=== PATIENT | female | born 1940 | race Caucasian/White ===

== ENCOUNTER 2019-06-28 07:10 | Outpatient (CLI) | payer OTHER, SELFPAY ==
[2019-06-28 07:58] LABS: Basophils Absolute Auto 0.1 K/mm3 (0.0-0.1); Basophils Percent Auto 0.8 % (0.2-1.2); Eosinophils Absolute Auto 0.1 K/mm3 (0-0.3); Eosinophils Percent Auto 1.5 % (0-4.4); Hematocrit 48.3 % (37.0-47.0); Hemoglobin 15.9 g/dL (12.0-15.0); Immature Granulocyte Absolute 0.03 K/mm3 (0.00-0.031); Immature Granulocyte Percent A 0.3 % (0-0.5); Lymphocytes Absolute Auto 1.82 K/mm3 (0.9-3.2); Lymphocytes Percent Auto 20.1 % (18.3-44.2); Mean Corpuscular HGB Conc 32.9 g/dl (32-36); Mean Corpuscular Hemoglobin 29.1 pg (26-34); Mean Corpuscular Volume 88.5 fl (80-100); Mean Platelet Volume 12.2 fl (7.4-10.4); Monocytes Absolute Auto 1.1 K/mm3 (0.1-0.6); Monocytes Percent Auto 12.3 % (2.6-8.5); Neutrophils Absolute Auto 5.9 K/mm3 (1.3-6.7); Platelet Count Result 325 k/mm3 (150-375); Red Blood Count 5.46 M/mm3 (4.2-5.4); Red Cell Distribution Width 13.8 % (11.5-14.5)
[2019-06-28 08:13] LABS: Alanine Aminotransferase 22 U/L (4-35); Albumin Level 4.1 g/dL (3.5-5.1); Alkaline Phosphatase 72 U/L (38-126); Aspartate Amino Transferase 24 U/L (14-36); Bilirubin,Total 0.5 mg/dL (0.2-1.3); Blood Urea Nitrogen 17 mg/dL (7-17); Calcium 9.5 mg/dL (8.4-10.2); Carbon Dioxide 33 mmol/L (22-30); Chloride 97 mmol/L (98-107); Cholesterol 247 mg/dL (0-200); Estimated Glomerular Filt Rate > 60; Glucose 112 mg/dL (65-105); HDL Direct 53 mg/dL; Potassium 3.6 mmol/L (3.4-5.0); Sodium 137 mmol/L (137-145); Triglycerides 149 mg/dL (<150)
[2019-06-28 08:20] LABS: Hemoglobin A1C 6.2 % (<5.7)
[2019-06-28 08:24] LABS: LDL Cholesterol Direct 160 mg/dL
== END 2019-06-28 07:11 | disposition home or self-care (01) ==
PROVIDERS: PCP Family Medicine
DX: R73.01 Impaired fasting glucose (principal); E55.9 Vitamin D deficiency, unspecified
CPT/HCPCS: 36415; 80053; 80061; 82306; 83036; 85025

== ENCOUNTER 2020-01-31 07:37 | Outpatient (CLI) | payer OTHER, SELFPAY ==
[2020-01-31 07:55] LABS: Basophils Absolute Auto 0.1 K/mm3 (0.0-0.1); Basophils Percent Auto 0.8 % (0.2-1.2); Eosinophils Absolute Auto 0.1 K/mm3 (0-0.3); Hematocrit 47.6 % (37.0-47.0); Hemoglobin 16.1 g/dL (12.0-15.0); Immature Granulocyte Absolute 0.01 K/mm3 (0.00-0.031); Immature Granulocyte Percent A 0.1 % (0-0.5); Lymphocytes Absolute Auto 1.63 K/mm3 (0.9-3.2); Lymphocytes Percent Auto 21.4 % (18.3-44.2); Mean Corpuscular HGB Conc 33.8 g/dl (32-36); Mean Corpuscular Hemoglobin 29.8 pg (26-34); Mean Corpuscular Volume 88.1 fl (80-100); Mean Platelet Volume 11.7 fl (7.4-10.4); Monocytes Absolute Auto 0.9 K/mm3 (0.1-0.6); Monocytes Percent Auto 12.1 % (2.6-8.5); Neutrophils Absolute Auto 4.9 K/mm3 (1.3-6.7); Neutrophils Percent Auto 64.6 % (45.5-73.1); Platelet Count Result 315 k/mm3 (150-375); Red Cell Distribution Width 14.6 % (11.5-14.5); White Blood Count 7.6 K/mm3 (4.5-10.0)
[2020-01-31 08:07] LABS: Hemoglobin A1C 5.9 % (<5.7)
[2020-01-31 08:16] LABS: Alanine Aminotransferase 26 U/L (4-35); Alkaline Phosphatase 57 U/L (38-126); Anion Gap 6 mmol/L (8-16); Aspartate Amino Transferase 29 U/L (14-36); Bilirubin,Total 0.6 mg/dL (0.2-1.3); Blood Urea Nitrogen 11 mg/dL (7-17); Calcium 9.3 mg/dL (8.4-10.2); Carbon Dioxide 35 mmol/L (22-30); Chloride 92 mmol/L (98-107); Estimated Glomerular Filt Rate > 60; Glucose 105 mg/dL (65-105); Potassium 3.9 mmol/L (3.4-5.0); Sodium 133 mmol/L (137-145)
== END 2020-01-31 07:38 | disposition home or self-care (01) ==
PROVIDERS: PCP Family Medicine; Visit Provider Physician Assistant
DX: J44.9 Chronic obstructive pulmonary disease, unspecified (principal); R73.03 Prediabetes; I10 Essential (primary) hypertension
CPT/HCPCS: 36415; 80053; 83036; 85025

== ENCOUNTER 2020-10-16 07:08 | Outpatient (CLI) | payer OTHER, SELFPAY ==
[2020-10-16 07:49] LABS: Basophils Percent Auto 0.5 % (0.2-1.2); Eosinophils Absolute Auto 0.2 K/mm3 (0-0.3); Eosinophils Percent Auto 2.3 % (0-4.4); Hematocrit 46.9 % (37.0-47.0); Hemoglobin 15.1 g/dL (12.0-15.0); Immature Granulocyte Absolute 0.02 K/mm3 (0.00-0.031); Immature Granulocyte Percent A 0.2 % (0-0.5); Lymphocytes Absolute Auto 1.67 K/mm3 (0.9-3.2); Lymphocytes Percent Auto 20.1 % (18.3-44.2); Mean Corpuscular HGB Conc 32.2 g/dl (32-36); Mean Corpuscular Hemoglobin 29.2 pg (26-34); Mean Corpuscular Volume 90.5 fl (80-100); Mean Platelet Volume 12.4 fl (7.4-10.4); Monocytes Absolute Auto 1.1 K/mm3 (0.1-0.6); Monocytes Percent Auto 13.3 % (2.6-8.5); Neutrophils Absolute Auto 5.3 K/mm3 (1.3-6.7); Neutrophils Percent Auto 63.6 % (45.5-73.1); Platelet Count Result 255 k/mm3 (150-375); Red Blood Count 5.18 M/mm3 (4.2-5.4); Red Cell Distribution Width 14.4 % (11.5-14.5); White Blood Count 8.3 K/mm3 (4.5-10.0)
[2020-10-16 07:55] LABS: Alanine Aminotransferase 18 U/L (4-35); Albumin Level 4.1 g/dL (3.5-5.1); Alkaline Phosphatase 57 U/L (38-126); Anion Gap 8 mmol/L (8-16); Aspartate Amino Transferase 24 U/L (14-36); Bilirubin,Total 0.3 mg/dL (0.2-1.3); Blood Urea Nitrogen 20 mg/dL (7-17); Calcium 9.3 mg/dL (8.4-10.2); Carbon Dioxide 29 mmol/L (22-30); Chloride 101 mmol/L (98-107); Cholesterol 232 mg/dL (0-200); Estimated Glomerular Filt Rate 60; Glucose 97 mg/dL (65-105); HDL Direct 60 mg/dL; Potassium 4.3 mmol/L (3.4-5.0); Sodium 138 mmol/L (137-145); Triglycerides 123 mg/dL (<150)
[2020-10-16 08:06] LABS: LDL Cholesterol Direct 121 mg/dL
[2020-10-16 10:50] LABS: Hemoglobin A1C 6.1 % (<5.7)
[2020-10-21 04:40] LABS: Vitamin D 1,25 (OH)2 Total 21 pg/mL (18-72); Vitamin D2 1,25 (OH)2 <8 pg/mL; Vitamin D3 1,25 (OH)2 21 pg/mL
== END 2020-10-16 07:09 | disposition home or self-care (01) ==
PROVIDERS: PCP Family Medicine; Visit Provider Physician Assistant
DX: E78.2 Mixed hyperlipidemia (principal); E55.9 Vitamin D deficiency, unspecified; J44.9 Chronic obstructive pulmonary disease, unspecified; R73.03 Prediabetes; G62.9 Polyneuropathy, unspecified; F33.1 Major depressive disorder, recurrent, moderate; I10 Essential (primary) hypertension
CPT/HCPCS: 36415; 80053; 80061; 82652; 83036; 85025

== ENCOUNTER 2021-10-01 06:59 | Outpatient (CLI) | payer OTHER, SELFPAY ==
[2021-10-01 07:57] LABS: Basophils Percent Auto 0.4 % (0.2-1.2); Eosinophils Absolute Auto 0.2 K/mm3 (0-0.3); Eosinophils Percent Auto 1.7 % (0-4.4); Hematocrit 47.1 % (37.0-47.0); Hemoglobin 15.6 g/dL (12.0-15.0); Immature Granulocyte Absolute 0.07 K/mm3 (0.00-0.031); Immature Granulocyte Percent A 0.8 % (0-0.5); Lymphocytes Absolute Auto 1.71 K/mm3 (0.9-3.2); Lymphocytes Percent Auto 19.1 % (18.3-44.2); Mean Corpuscular HGB Conc 33.1 g/dl (32-36); Mean Corpuscular Hemoglobin 29.9 pg (26-34); Mean Corpuscular Volume 90.4 fl (80-100); Mean Platelet Volume 12.2 fl (7.4-10.4); Monocytes Percent Auto 11.1 % (2.6-8.5); Neutrophils Percent Auto 66.9 % (45.5-73.1); Platelet Count Result 225 k/mm3 (150-375); Red Blood Count 5.21 M/mm3 (4.2-5.4); Red Cell Distribution Width 14.2 % (11.5-14.5)
[2021-10-01 08:12] LABS: Alanine Aminotransferase 24 U/L (6-35); Alkaline Phosphatase 59 U/L (38-126); Anion Gap 3 mmol/L (8-16); Aspartate Amino Transferase 28 U/L (14-36); Bilirubin,Total 0.5 mg/dL (0.2-1.3); Blood Urea Nitrogen 18 mg/dL (7-17); CRP 0.9 mg/dL (<1.0); Calcium 8.6 mg/dL (8.4-10.2); Carbon Dioxide 31 mmol/L (22-30); Chloride 103 mmol/L (98-107); Cholesterol 249 mg/dL (0-200); Estimated Glomerular Filt Rate > 60; Glucose 101 mg/dL (65-110); HDL Direct 49 mg/dL; Potassium 4.1 mmol/L (3.4-5.0); Sodium 137 mmol/L (137-145); Triglycerides 128 mg/dL (<150)
[2021-10-01 08:26] LABS: LDL Cholesterol Direct 145 mg/dL
[2021-10-04 12:00] LABS: Lipoprotein A <10 nmol/L (<75)
== END 2021-10-01 07:00 | disposition home or self-care (01) ==
PROVIDERS: PCP Family Medicine; Visit Provider Family Medicine
DX: E78.2 Mixed hyperlipidemia (principal); I70.211 Atherosclerosis of native arteries of extremities with intermittent claudication, right leg; I10 Essential (primary) hypertension; G60.9 Hereditary and idiopathic neuropathy, unspecified; I82.90 Acute embolism and thrombosis of unspecified vein; F17.200 Nicotine dependence, unspecified, uncomplicated; R60.0 Localized edema
CPT/HCPCS: 36415; 80053; 80061; 83695; 85025; 86140

== ENCOUNTER 2022-03-21 05:09 | Emergency (ER) | payer OTHER, SELFPAY ==
[2022-03-21 05:08] VITALS: BP 157/96; PULSE 79; RESP 18; TEMP 36.6; O2SAT 94
--- NOTE | 2022-03-21 05:19 | ED.GENADULT ---
HPI - General Adult General Chief complaint: Allergic Reaction <DO Osiel Mckay Last Filed: 03/21/22 06:30> Stated complaint: ALLERGIC REACTION <DO Osiel Mckay Last Filed: 03/21/22 06:30> Time Seen by Provider: 03/21/22 09:37 <DO Osiel Mckay Last Filed: 03/21/22 06:30> Source: RN notes reviewed <Antwan Holley DO - Last Filed: 03/21/22 06:30> History of Present Illness HPI narrative: Patient presents emergency department from home via EMS for tongue swelling. Patient states she awoke from sleep at approximately 3 AM swelling over the left side of her tongue. She states that swelling has progressively become somewhat larger and she called EMS at that time. When EMS arrived they noted the patient has swelling of her lips or tongue the patient was given Solu-Medrol 125 mg x 1 at that time. Patient states she was recently diagnosed with bronchitis and started on Levaquin as well as codeine with guaifenesin. She states it is difficult to swallow but she denies any shortness of breath at this time patient also notes that she is on lisinopril <DO Osiel Mckay Last Filed: 03/21/22 06:30> Related Data Allergies/adverse reactions: Allergies Allergy/AdvReac Type Severity Reaction Status Date / Time ranitidine Allergy Intermediate RASH/ITCHIN Verified 03/20/22 07:29 G Penicillins Allergy Mild hives Verified 03/20/22 07:29 simvastatin Allergy Unknown myopathy Verified 03/20/22 07:29 guaifenesin Allergy Swelling Verified 03/21/22 05:14 levofloxacin Allergy Swelling Verified 03/21/22 05:15 <DO Osiel Mckay Last Filed: 03/21/22 06:30> Review of Systems Review of Systems: Gen.: Denies fevers or chills ENT: See HPI Respiratory: Denies shortness of breath or cough CV: Denies chest pain or palpitations GI: Denies abdominal pain nausea, emesis Musculoskeletal: Denies back pain or muscle pain Neuro: Denies numbness, tingling, weakness or focal weakness Skin: Denies rash Except as documented, all other systems reviewed and negative <Antwan Holley DO - Last Filed: 03/21/22 06:30> [facility] Past Medical History Medical History: Medical History Atherosclerosis of aorta COPD (chronic obstructive pulmonary disease) Essential (primary) hypertension Gastro-esophageal reflux disease without esophagitis Insomnia, unspecified Major depressive disorder, recurrent, moderate Mixed hyperlipidemia Nicotine dependence, cigarettes, uncomplicated Osteopenia after menopause Peripheral arterial occlusive disease Peripheral vascular disease Primary generalized (osteo)arthritis Seborrheic keratosis, inflamed Stress incontinence in female Unspecified osteoarthritis, unspecified site <Antwan Holley DO - Last Filed: 03/21/22 06:30> Family History Family History: Family History Mother Hypertension Sibling Patient's sister is in good health Father Carcinoma of colon <Antwan Holley DO - Last Filed: 03/21/22 06:30> Social History Social History: Social History Social History: Years smoked: 60 Smoking status: Light tobacco smoker Tobacco type: cigarettes Second hand tobacco smoke exposure: Yes Additional smoking assessment comments: pt states she is a social smoker Alcohol intake: current Alcohol use details: occasionally Substance use: never Substance use type: does not use Gender identity (if verbalized by the patient): Female Sexual Orientation (if Verbalized by the Patient): Straight or Heterosexual <Antwan Holley DO - Last Filed: 03/21/22 06:30> Exam Narrative: APPEARANCE: No acute distress, nontoxic, resting in bed EYES: EOMI HEENT: Normocephalic, atraumatic, OMM the left side of the tongue is swollen there is no swelling over the ri
[2022-03-21] MEDS: diphenhydrAMINE HCl INJ 50 MG/ML VIAL 25 MG IV PUSH (05:34)
[2022-03-21 05:41] VITALS: O2SAT 95
== END 2022-03-21 10:06 | disposition home or self-care (01) ==
PROVIDERS: Emergency Provider Emergency Medicine; PCP Family Medicine
DX: T78.3XXA Angioneurotic edema, initial encounter (principal); I10 Essential (primary) hypertension; J44.9 Chronic obstructive pulmonary disease, unspecified; E78.2 Mixed hyperlipidemia; F17.210 Nicotine dependence, cigarettes, uncomplicated
CPT/HCPCS: 96374; 99284; J1200

== ENCOUNTER 2022-09-17 07:32 | Outpatient (CLI) | payer OTHER, SELFPAY ==
--- NOTE | 2022-09-17 07:47 | ECHO_ITS ---
Patient Info Name: Vee Roe Age: 82 years : 1940 Gender: Female Ht: 64 in Wt: 178 lbs BSA: 1.94 m2 HR: 53 bpm BP: 161 / 84 mmHg Technical Quality: Fair Exam Date: 09/17/2022 7:57 AM Exam Location: [facility] Patient Status: Outpatient Admit Date: 09/17/2022 Staff Ordering Physician: Bernie Brannon MD Driver Retraining Instructor: Abbey Ngo RDCS Attending Provider: Bernie Brannon MD Referring Physician: Clovis MARIN; Exam Type: CA echo doppler color flow Study Info Indications R01.1 - Cardiac murmur, unspecified Complete two-dimensional, color flow and Doppler transthoracic echocardiogram is performed. Summary 1. Complete two-dimensional, color flow and Doppler transthoracic echocardiogram is performed. 2. Left ventricular chamber dimension is normal. 3. Left ventricular systolic function is normal, estimated at 60-65%. 4. There is mild concentric increased left ventricular wall thickness. 5. The left ventricular diastolic function is grade I diastolic dysfunction. 6. E/e' 19 is elevated. 7. Global longitudinal strain is abnormal at -13.0%. 8. Left atrial chamber dimension is mildly enlarged. 9. There is mild aortic valve sclerosis. 10. The mitral valve has moderately calcified annulus. 11. No pulmonary hypertension, estimated pulmonary arterial systolic pressure is 19 mmHg. Left Ventricle E/e' 19 is elevated. Global longitudinal strain is abnormal at -13.0%. Left ventricular chamber dimension is normal. Left ventricular systolic function is normal, estimated at 60-65%. There is mild concentric increased left ventricular wall thickness. The left ventricular diastolic function is grade I diastolic dysfunction. Right Ventricle Right ventricular systolic function is normal and with normal TAPSE 1.9 cm. Right ventricular chamber dimension is normal. Left Atria Left atrial chamber dimension is mildly enlarged. Right Atria Right atrial chamber dimension is normal. Aortic Valve The aortic valve is trileaflet. There is mild aortic valve sclerosis. There is no aortic valve stenosis. There is no aortic valve regurgitation. Pulmonic Valve There is no pulmonic regurgitation. Mitral Valve The mitral valve has moderately calcified annulus. There is no mitral valve stenosis. There is no mitral valve regurgitation. Tricuspid Valve There is no tricuspid valve regurgitation. No pulmonary hypertension, estimated pulmonary arterial systolic pressure is 19 mmHg. Pericardium/Pleural There is no pericardial effusion. Inferior Vena Cava Normal inferior vena cava with >50% collapse upon inspiration consistent with normal right atrial pressure, 5 mmHg. Aorta The aortic root size at the sinus of Valsalva is normal. Left Ventricular Outflow Tract Name Value Normal LVOT 2D LVOT Diameter 2.0 cm LVOT Doppler LVOT Peak Gradient 6 mmHg LVOT Mean Gradient 3 mmHg LVOT VTI 29 cm LVOT VTI/AV VTI Ratio 0.7 LVOT Stroke Volume 86 ml LVOT CO 4.3 l/min LVOT CI 2.
== END 2022-09-17 07:33 | disposition home or self-care (01) ==
PROVIDERS: PCP Family Medicine; Visit Provider Family Medicine
DX: R01.1 Cardiac murmur, unspecified (principal)
CPT/HCPCS: 93306

== ENCOUNTER → 2022-11-17 10:04 | Outpatient (CLI) | payer OTHER, SELFPAY ==
--- NOTE | ~2022-11-17 | DEXA_ITS ---
Bone Density Report Name: RENATO TRISTAN Age: 82 Sex: Female Ethnicity: White Date of : 1940 Indication: osteopenia; monitoring treatment; parental hip fracture; height loss; prior fracture; postmenopausal Referring Provider: KADY, AQUILES Lynn Study: Bone densitometry was performed. Exam Date: November 17, 2022 Accession number: [id number] Bone Density: Region BMD T-score Z-score Classification AP Spine (L1-L4) 1.167 1.1 3.9 Normal Femoral Neck (Left) 0.677 -1.6 0.9 Osteopenia Total Hip (Left) 0.797 -1.2 1.1 Osteopenia Femoral Neck (Right) 0.599 -2.2 0.2 Osteopenia Total Hip (Right) 0.741 -1.6 0.6 Osteopenia Total Hip Mean 0.769 -1.4 0.9 Osteopenia World Health Organization criteria for BMD impression classify patients as: Normal (T-score at or above -1.0), Osteopenia (T-score between -1.0 and -2.5), or Osteoporosis (T-score at or below -2.5). 10-year Fracture Risk: FRAX not reported because: Treated for osteoporosis Previous Exams: Region Exam Age BMD T-score BMD Change BMD Change Date g/cm2 vs Baseline vs Previous AP Spine(L1-L4) 11/17/2022 82 1.167 1.1 0.088* 0.055* 06/26/2015 75 1.112 0.6 0.033* 0.027* 09/27/2009 69 1.085 0.3 0.006 0.006 06/09/2004 64 1.079 0.3 Total Hip(Left) 11/17/2022 82 0.797 -1.2 -0.085* 0.015 06/26/2015 75 0.781 -1.3 -0.100* -0.038* 09/27/2009 69 0.819 -1.0 -0.062* -0.062* 06/09/2004 64 0.881 -0.5 Total Hip(Right) 11/17/2022 82 0.741 -1.6 -0.045* 0.008 06/26/2015 75 0.733 -1.7 -0.053* -0.021 09/27/2009 69 0.754 -1.5 -0.032* -0.032* 06/09/2004 64 0.786 -1.3 *Denotes significance at 95% confidence level, LSC for AP Spine = 0.022 g/cm2, LSC for Total Hip = 0.027 g/cm2 Clinical Information Provided by Patient: Has had a low trauma fracture Parent has had a hip fracture Smokes Is being treated for osteoporosis Has used the following medications: Fosamax (i.e. alendronate) Patient maximum height was 64 Menopause Age: 51 No regular weight bearing exercise Does not regularly consume dairy products Drinks caffeinated beverages Onset of menses at age 12 Number of children 4 Impression: The patient has low bone mass, based on the Right Femoral Neck T-score. The patient has risk factors, including: paren
== END ==
PROVIDERS: PCP Family Medicine; Visit Provider Nurse Practitioner Gerontology
DX: Z78.0 Asymptomatic menopausal state (principal); M85.852 Other specified disorders of bone density and structure, left thigh; M85.851 Other specified disorders of bone density and structure, right thigh
CPT/HCPCS: 77080

== ENCOUNTER 2023-07-06 08:42 | Outpatient (CLI) | payer OTHER, SELFPAY ==
--- NOTE | ~2023-07-06 | XR_ITS ---
Clinical Indication: Cough PA and lateral views of the chest: Comparison: 10/13/2016 Findings: 2 cm similar nodular opacity right lung base noted. Calcified right basilar granuloma also present. Left lung clear. Cardiomediastinal silhouette is within normal limits. Bones and soft tissu es are unremarkable. Impression: 2 cm nodular opacity right lung base. Focal pneumonia versus pulmonary nodule are considerations. Rec ommend chest CT to further evaluate. Reviewed, dictated and finalized at location M. Impression: 2 cm nodular opacity right lung base. Focal pneumonia versus pulmonary nodule a re considerations. Recommend chest CT to further evaluate.
== END 2023-07-06 08:43 | disposition home or self-care (01) ==
PROVIDERS: PCP Family Medicine; Visit Provider Family Medicine
DX: R91.8 Other nonspecific abnormal finding of lung field (principal); R06.9 Unspecified abnormalities of breathing
CPT/HCPCS: 71046

== ENCOUNTER 2023-07-12 08:35 | Outpatient (CLI) | payer OTHER, SELFPAY ==
--- NOTE | ~2023-07-12 | CT_ITS ---
EXAMINATION:CT diagnostic chest wo con DATE: 07/12/2023 09:02 INDICATION: Solitary pulmonary nodule. TECHNIQUE: Computed tomography (CT) of the chest was performed without intravenous contrast. Automate d exposure control and iterative reconstruction technique were employed. The dose-length product (DLP ) was 140.24 mGy-cm. COMPARISON: Chest 2 views 07/06/2023, left shoulder CT 09/14/2014 FINDINGS: The lungs demonstrate mild atelectasis. There is partial collapse of right middle lobe. A c alcified right lung nodule and calcified right hilar lymph nodes are consistent with old granulomatou s disease. No pleural effusion. There is a 3.7 x 2.1 x 1.9 cm mass in the anterior mediastinum. The h eart size is normal. There are coronary artery calcifications. No pericardial effusion. Calcification s in the spleen are consistent with old granulomatous disease. There are gallstones in the gallbladde r, which is normal in size. There is a 10 mm hemorrhagic cyst in left kidney. There is mild thoracic spondylosis. IMPRESSION: 1. Partial collapse of right lung middle lobe, which correlates with the chest radiograph abnormality . 2. 3.7 cm mass in the anterior mediastinum. A small portion of the mass is visible on the CT from 08/18 suggesting this finding is benign. The differential diagnosis is headed by thymoma and thymic hyperplasia. Reviewed, dictated and finalized at location E. IMPRESSION: 1. Partial collapse of right lung middle lobe, which correlates with the chest radiograph abnormality. 2. 3.7 cm mass in the anterior mediastinum. A small portion of the mass is visi ble on the CT from 09/14/2014 suggesting this finding is benign. The differentia l diagnosis is headed by thymoma and thymic hyperplasia.
== END 2023-07-12 08:36 | disposition home or self-care (01) ==
PROVIDERS: PCP Family Medicine; Visit Provider Family Medicine
DX: R91.1 Solitary pulmonary nodule (principal); J98.19 Other pulmonary collapse; R92.8 Other abnormal and inconclusive findings on diagnostic imaging of breast
CPT/HCPCS: 71250

== ENCOUNTER 2024-02-02 09:25 | Outpatient (CLI) | payer OTHER, SELFPAY ==
--- NOTE | ~2024-02-02 | CT_ITS ---
CT Scan of the Chest without Contrast: Clinical Indication: Atelectasis Technique: Contiguous sections were acquired throughout the chest without intravenous contrast. Dose reduction technique was used on this scan by utilizing automated exposure control and iterative recon struction technique. The dose-length product (DLP) was 379.28 mGy-cm. COMPARISON: 07/12/2023 Findings: 2.7 x 1.6 cm lobulated, circumscribed anterior mediastinal lesion is similar to prior exam, possibly minimally increased. Coronary artery calcifications are present. No other mediastinal mass evident. There is no evidence of pleural or pericardial effusion. Calcified right lower lobe granuloma present. Possible minimal atelectasis versus respiratory motion artifact. There is linear bibasilar scarring. Right middle lobe atelectasis seen on prior exam is lar courtney resolved. Images through the upper abdomen reveal stable low-density left adrenal adenoma. Small hyperdense lef t renal cyst is unchanged. Layering small gallstones are present.. Impression: Stable anterior mediastinal mass, indeterminate, though morphology suggests a benign lesion. Significant interval improvement in right middle lobe atelectasis since prior exam. Reviewed, dictated and finalized at location M. Impression: Stable anterior mediastinal mass, indeterminate, though morphology suggests a b enign lesion. Significant interval improvement in right middle lobe atelectasis since prior e xam.
--- NOTE | ~2024-02-02 | XR_ITS ---
Lumbosacral Spine: AP and lateral views Clinical History: Pain Findings: The normal lordotic curve is maintained. No fracture seen. 7 mm anterolisthesis of L4 over L5 noted. There is advanced facet arthropathy throughout the lumbar spine. There are minimal degenera tive changes.. The sacroiliac joints are normally outlined. Impression: 7 mm anterolisthesis of L4 over L5. Advanced facet arthropathy throughout the lumbar spine. Reviewed, dictated and finalized at location M. Impression: 7 mm anterolisthesis of L4 over L5. Advanced facet arthropathy throughout the lumbar spine.
== END 2024-02-02 09:26 | disposition home or self-care (01) ==
PROVIDERS: PCP Family Medicine; Visit Provider Physician Assistant
DX: J98.11 Atelectasis (principal); J98.59 Other diseases of mediastinum, not elsewhere classified; M47.816 Spondylosis without myelopathy or radiculopathy, lumbar region
CPT/HCPCS: 71250; 72100

== ENCOUNTER 2024-03-13 13:01 | Outpatient (CLI) | payer OTHER, SELFPAY ==
--- NOTE | ~2024-03-13 | CT_ITS ---
EXAMINATION: CT lumbar spine wo con DATE: 03/13/2024 13:23 INDICATION: Other specified dorsopathies, lumbosacral region. TECHNIQUE: Computed tomography (CT) of the lumbar spine was performed without intravenous contrast. A utomated exposure control and iterative reconstruction technique were employed. The dose-length produ ct was 1197.42 mGy-cm. COMPARISON: Lumbar spine radiographs 02/02/2024 FINDINGS: There is 4 mm anterolisthesis of L4 on L5. Vertebral body heights are normal. Intervertebra l disc heights are normal. The following disc levels are specifically discussed: L1-L2: The disc is bulging. There is severe bilateral facet joint osteoarthritis. There is mild bilat eral neural foraminal stenosis. There is mild central canal stenosis. L2-L3: The disc is bulging. There is severe bilateral facet joint osteoarthritis. There is mild bilat eral neural foraminal stenosis. There is mild central canal stenosis. L3-L4: The disc is bulging. There is severe bilateral facet joint osteoarthritis. There is mild bilat eral neural foraminal stenosis. There is mild central canal stenosis. L4-L5: The disc is bulging. There is severe bilateral facet joint osteoarthritis. There is mild bilat eral neural foraminal stenosis. There is mild central canal stenosis. L5-S1: The disc is bulging. There is severe bilateral facet joint osteoarthritis. There is mild bilat eral neural foraminal stenosis. There is mild central canal stenosis. IMPRESSION: 1. Mild lumbar spondylosis. Reviewed, dictated and finalized at location A. [employer] TECHNICIAN IMPRESSION: 1. Mild lumbar spondylosis.
== END 2024-03-13 13:02 | disposition home or self-care (01) ==
PROVIDERS: PCP Family Medicine; Visit Provider Family Medicine
DX: M47.816 Spondylosis without myelopathy or radiculopathy, lumbar region (principal)
CPT/HCPCS: 72131

== ENCOUNTER 2024-04-04 13:32 | Observation (INO) | payer OTHER, SELFPAY ==
[2024-04-04] VITALS (15 sets, daily range): BP systolic 142–174; BP diastolic 50–103; PULSE 69–84; RESP 12–24; TEMP 36.7–37.2; O2SAT 94–97; BMI 31.8
--- NOTE | ~2024-04-04 | MR_ITS ---
EXAMINATION: MR brain/brain stem wo/w con DATE: 04/05/2024 17:10 INDICATION: Cerebrovascular accident. Left 6th nerve palsy. TECHNIQUE: Magnetic resonance imaging (MRI) of the brain and brainstem was performed without and with 18 mL MultiHance intravenous contrast. COMPARISON: Head CTA 04/04/2024 FINDINGS: There are scattered areas of nonspecific increased T2-weighted signal intensity in the cere bral white matter. 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 There is no intracranial hemorrhage, acute infarction, or abnormal intracranial mass lesion. The ventricles are normal in size . The paranasal sinuses are clear. There are likely changes of ocular lens replacement surgeries. The mastoid air cells are normal. There is a hematoma of the superior scalp. IMPRESSION: 1. Moderate nonspecific cerebral white matter disease, which likely represents chronic small vessel i schemic disease. Reviewed, dictated and finalized at location A. TIONS COORDINATOR IMPRESSION: 1. Moderate nonspecific cerebral white matter disease, which likely represents chronic small vessel ischemic disease.
--- NOTE | ~2024-04-04 | XR_ITS ---
EXAMINATION: XR chest 1V portable DATE: 04/04/2024 20:00 INDICATION: Leukocytosis. TECHNIQUE: A single frontal view of the chest was obtained. COMPARISON: Chest 2 views 07/06/2023, chest CT 02/02/2024 FINDINGS: A calcified right lung nodule is consistent with old granulomatous disease. No pleural effu jameel or pneumothorax. Cardiomegaly is noted. There is a prominent left pericardial fat pad. IMPRESSION: 1. Cardiomegaly. Reviewed, dictated and finalized at location A. PATIONAL MEDICINE PHYSICIAN IMPRESSION: 1. Cardiomegaly.
--- NOTE | ~2024-04-04 | CT_ITS ---
CT brain wo con Ordering provider: Kushal Lin MD History: 84 years Female with . Double Vision . Comparison: None. Technique: CT of the head without contrast. Radiation reduction technique utilized.The dose-length product was 605.33 mGy-cm. FINDINGS: BRAIN PARENCHYMA AND CSF SPACES: Mild leukoaraiosis and diffuse cortical atrophy. Mild atheromatous d isease. No midline shift, mass effect or hemorrhage. The brain parenchyma and CSF spaces are otherwi se normal. VISUALIZED PARANASAL SINUSES: Bilateral maxillary sinus disease. MASTOIDS: Well aerated. BONES: The bones appear intact. SOFT TISSUES: A hematoma is seen superiorly in the right frontal area. Otherwise, Visualized nasophar ynx is normal. Superficial soft tissues are normal. IMPRESSION: No acute intracranial findings. Reviewed, dictated and finalized at location A. T RELATIONS RECEPTIONIST
--- NOTE | ~2024-04-04 | CT_ITS ---
EXAMINATION: CTA brain carotid DATE: 04/04/2024 17:40 INDICATION: Left 6th nerve palsy. TECHNIQUE: Computed tomographic angiography (CTA) of the head was performed with 100 mL Omnipaque-350 intravenous contrast. CTA of the neck was performed with intravenous contrast. Automated exposure co ntrol and iterative reconstruction technique were employed. The dose-length product was 1074.40 mGy-c m. Maximum intensity projection and volume rendered 3D-reconstructions were created by the technjoycei st on a separate workstation. COMPARISON: Head CT 04/04/2024 FINDINGS: HEAD CTA: There are scattered areas of low attenuation in the cerebral white matter. There is no intr acranial hemorrhage, acute infarction, or abnormal intracranial mass lesion. The ventricles are blade l in size. There are likely changes of ocular lens replacement surgeries. The paranasal sinuses are c lear. The mastoid air cells are normal. There is superior scalp soft tissue swelling. Left vertebral artery is dominant. There is no significant stenosis of basilar artery or the posterior cerebral kirstie ranjeet. There is no significant stenosis of the intracranial internal carotid arteries or anterior or m iddle cerebral arteries. Anterior communicating artery is normal. Posterior communicating arteries ar e not identified. There is a developmental venous anomaly in the right insula. NECK CTA: The lungs demonstrate small pleural effusions. There are nodules in the thyroid measuring u p to 12 mm, likely not clinically significant. There are no pathologically enlarged lymph nodes. Ther e is no significant stenosis of the vertebral arteries. There is plaque in the proximal internal echols tid arteries. There is 0% stenosis of the proximal right internal carotid artery relative to normal d istal artery lumen diameter (NASCET criteria). There is 0% stenosis of the proximal left internal car otid artery relative to normal distal artery lumen diameter. There is moderate cervical spondylosis. There is a chronic compression fracture of T1. IMPRESSION: 1. Moderate nonspecific cerebral white matter disease, which likely represents chronic small vessel i schemic disease. 2. No aneurysm or significant intracranial arterial stenosis. 3. 0% stenosis of the proximal internal carotid arteries relative to normal distal artery lumen diame ters (NASCET criteria). Reviewed, dictated and finalized at location A. N DRILL OPERATOR IMPRESSION: 1. Moderate nonspecific cerebral white matter disease, which likely represents chronic small vessel ischemic disease. 2. No aneurysm or significant intracranial arterial stenosis. 3. 0% stenosis of the proximal internal carotid arteries relative to normal dis yuly artery lumen diameters (NASCET criteria).
--- NOTE | ~2024-04-04 | US_ITS ---
EXAMINATION: US abdomen limited DATE: 04/04/2024 20:54 INDICATION: Abnormal liver function tests. TECHNIQUE: Multiple grayscale and Doppler ultrasound images of the abdomen were obtained. COMPARISON: Ultrasound 02/28/2013, chest CT 02/02/2024 FINDINGS: The visualized portions of the head and body of the pancreas are normal. The liver demonstr ates a coarsened echotexture. There is normal flow in main portal vein. The gallbladder is normal siz e. No gallstones or gallbladder wall thickening. There is no sonographic Ramirez's sign. The common du ct is normal and measures 6 mm. IMPRESSION: 1. Coarsened liver echotexture, which may be seen with steatosis. Reviewed, dictated and finalized at location A. CTOR OF LITIGATION
--- NOTE | 2024-04-04 13:38 | ECG_ITS ---
Test Date: 2024-04-04 14:27:28 Measurements Intervals [place] Rate: 72 P: 17 NV: 159 QRS: 8 QRSD: 87 T: 9 QT: 378 QTc: 414 Interpretive Statements SINUS RHYTHM No previous ECG available for comparison Electronically Signed On 04-04-2024 16:21:11 LAUNDRY MANAGER by Eden Garcia M.D.
[2024-04-04 13:48] LABS: Glucose Point of Care 95 mg/dl (65-105)
[2024-04-04 14:02] LABS: Basophils Percent Auto 0.2 % (0.2-1.2); Eosinophils Absolute Auto 0.1 K/mm3 (0-0.3); Eosinophils Percent Auto 0.8 % (0-4.4); Hematocrit 40.9 % (37.0-47.0); Hemoglobin 13.7 g/dL (12.0-15.0); Immature Granulocyte Percent A 0.6 % (0-0.5); Lymphocytes Absolute Auto 1.21 K/mm3 (0.9-3.2); Lymphocytes Percent Auto 7.4 % (18.3-44.2); Mean Corpuscular HGB Conc 33.5 g/dl (32-36); Mean Corpuscular Hemoglobin 29.5 pg (26-34); Mean Platelet Volume 10.6 fl (7.4-10.4); Monocytes Absolute Auto 1.6 K/mm3 (0.1-0.6); Neutrophils Absolute Auto 13.2 K/mm3 (1.3-6.7); Platelet Count Result 524 k/mm3 (150-375); Red Blood Count 4.65 M/mm3 (4.2-5.4); Red Cell Distribution Width 13.8 % (11.5-14.5); White Blood Count 16.3 K/mm3 (4.5-10.0)
[2024-04-04 14:17] LABS: Alanine Aminotransferase 182 U/L (6-35); Albumin Level 3.1 g/dL (3.5-5.1); Alkaline Phosphatase 197 U/L (38-126); Anion Gap 5 mmol/L (4-12); Aspartate Amino Transferase 118 U/L (14-36); Bilirubin,Total 0.8 mg/dL (0.2-1.3); Blood Urea Nitrogen 16 mg/dL (7-17); Calcium 8.4 mg/dL (8.4-10.2); Carbon Dioxide 32 mmol/L (22-30); Chloride 95 mmol/L (98-107); Estimated Glomerular Filt Rate > 60; Glucose 105 mg/dL (65-110); Potassium 3.1 mmol/L (3.4-5.0); Sodium 132 mmol/L (137-145)
[2024-04-04 14:21] LABS: INR 1.2; Prothrombin Time 15.3 Seconds (11.1-14.7)
[2024-04-04 14:22] LABS: Partial Thromboplastin Time 37.2 Seconds (22.3-36.8)
[2024-04-04 14:28] LABS: Troponin I 0.012 ng/mL (0.000-0.034)
--- NOTE | 2024-04-04 15:37 | ED.GENADULT ---
HPI - General Adult General Chief complaint: Neuro Symptoms/Deficit Stated complaint: double vision Time Seen by Provider: 04/04/24 15:00 History of Present Illness HPI narrative: 84-year-old female presenting to the emergency department for acute onset of double vision. Patient reports that approximately 10:00 a.m. she was driving when she felt acute onset of double vision. Patient reports over the last few weeks she has not been feeling well and patient did have an extensive workup at [facility]. Patient was actually going to have outpatient labs rechecked when she was coming back and had onset of the double vision. Patient denies any other associated numbness or weakness. Related Data Home Medications ?Medication ?Instructions ?Recorded ?Confirmed ?Last Taken ?Type alendronate 70 mg tablet 70 mg PO WEEKLY 04/04/24 04/04/24 Unknown History diphenhydramine 25 1 tablet PO HS PRN sleep 04/04/24 04/04/24 04/03/24 History mg-acetaminophen 500 mg tablet (Acetaminophen PM) telmisartan 40 mg tablet 40 mg PO DAILY 04/04/24 04/04/24 Unknown History Allergies Allergy/AdvReac Type Severity Reaction Status Date / Time lisinopril Allergy Severe Anaphylactic Verified 04/04/24 20:16 Shock ranitidine Allergy Intermediate RASH/ITCHIN Verified 04/04/24 20:16 G Penicillins Allergy Mild hives Verified 04/04/24 20:16 simvastatin Allergy Unknown myopathy Verified 04/04/24 20:16 amlodipine Allergy Swelling Verified 04/04/24 20:16 codeine Allergy Swelling Verified 04/04/24 20:16 of Lip/Tongue/Throat guaifenesin Allergy Swelling Verified 04/04/24 20:16 levofloxacin Allergy Swelling Verified 04/04/24 20:16 Review of Systems Review of Systems: All systems reviewed & are unremarkable except as noted in HPI and below PMFSH Past Medical History Medical History Prediabetes Essential hypertension Chronic obstructive pulmonary disease Cardiac murmur Angioedema Chronic insomnia Tobacco abuse Polycythemia Atherosclerosis of aorta Unspecified osteoarthritis, unspecified site Peripheral vascular disease Nicotine dependence, cigarettes, uncomplicated Insomnia, unspecified Gastro-esophageal reflux disease without esophagitis Major depressive disorder, recurrent, moderate Mixed hyperlipidemia Osteopenia after menopause Seborrheic keratosis, inflamed Stress incontinence in female Family History Family History Mother Hypertension Heart failure Sibling Patient's sister is in good health Father Carcinoma of colon Heart failure Social History Social History Social History: Surrogate medical decision maker: Mayuri Arredondo, daughter. Code status: Full code. Years smoked: 60 Smoking status: Light tobacco smoker Second hand tobacco smoke exposure: Yes Additional smoking assessment comments: pt states she is a social smoker Alcohol intake: current Alcohol use details: occasional alcohol use in moderation Substance use: never Substance use type: does not use Do You Feel Safe in your Home?: Yes Lack of Transportation: No Lack of Food: Never True Current Housing: I Have Housing Concerned About Future Housing: No Difficulty Paying Gas/Electric Bills: No Difficulty Paying for Meds: No Currently Unemployed: YES Education: Don't Know Difficulty w/ Childcare or Family Care: No Living arrangements: with family Additional living arrangements comments: . Lives in [place]. Occupation/Education: retired Spiritual care concerns: No Exam Narrative: APPEARANCE: Well appearing, no pain, no distress, well-nourished. HEAD: normocephalic, atraumatic. EYES: PERRLA/EOMI, conjunctivae clear. NOSE: Normal no drainage EARS:TMS clear with good light reflex. THROAT: Pharynx clear, no exudate. NECK: Supple. No adenopathy, no masses. RESPIRATORY: Airway patent, respirations nonlabored. Clear to auscultation bilaterally, no rales, rhonchi, wheezing. CARDIOVASCULAR: Regular rate and rhythm without murmurs rubs or gallops. ABDOMINAL: Soft, nontender, nondistended, normal bowel sounds MUSCULOSKELETAL: Moves all extremities. Strength/ROM intact, No edema, No calf tenderness. NEURO: Unable to gaze to the left with the left eye. Left eye does not past the midline when looking laterally. Able to look to the right with the left eye and when looking to the right patient states she has no double vision. SKIN: Warm, dry. Normal Color Course Vital Signs Vital signs: Vital Signs Temperature 98.1 F 04/04/24 14:07 Pulse Rate 79 04/04/24 14:07 Respiratory Rate 17 04/04/24 14:07 Blood Pressure 142/79 H 04/04/24 14:07 Pulse Oximetry 96 04/04/24 14:07 Oxygen Delivery Room Air 04/04/24 14:07 Temperature 98.4 F 04/05/24 14:00 Pulse Rate 75 04/05/24 16:00 Respiratory Rate 18 04/05/24 14:00 Blood Pressure 152/94 H 04/05/24 14:00 Pulse Oximetry 91 04/05/24 14:00 Oxygen Delivery Room Air 04/05/24 09:10 Medical Decision Making MDM Narrative Medical decision making narrative: 84-year-old female presented emergency department for evaluation for double vision. Patient is unable to move her left eye laterally. Patient denies any other numbness or weakness. CT and CTA were negative for acute intracranial abnormality. Neurology was consulted. Case was discussed with hospitalist patient was accepted for admission. MRI was ordered. Differential Diagnosis Differential Diagnosis: CVA, TIA, mass, infection Vital Signs Vital Signs: Vital Signs Temperature 98.1 F 04/04/24 14:07 Pulse Rate 79 04/04/24 14:07 Respiratory Rate 17 04/04/24 14:07 Blood Pressure 142/79 H 04/04/24 14:07 Pulse Oximetry 96 04/04/24 14:07 Oxygen Delivery Room Air 04/04/24 14:07 Temperature 98.4 F 04/05/24 14:00 Pulse Rate 75 04/05/24 16:00 Respiratory Rate 18 04/05/24 14:00 Blood Pressure 152/94 H 04/05/24 14:00 Pulse Oximetry 91 04/05/24 14:00 Oxygen Delivery Room Air 04/05/24 09:10 Lab Data 04/05/24 05:42 04/05/24 05:42 Labs: Lab Results 04/04/24 04/04/24 04/04/24 Range/Units 13:45 13:54 16:17 WBC 16.3 H (4.5-10.0) K/mm3 RBC 4.65 (4.2-5.4) M/mm3 Hgb 13.7 (12.0-15.0) g/dL Hct 40.9 (37.0-47.0) % MCV 88.0 (80-100) fl MCH 29.5 (26-34) pg MCHC 33.5 (32-36) g/dl RDW 13.8 (11.5-14.5) % Plt Count 524 H D (150-375) k/mm3 MPV 10.6 H (7.4-10.4) fl Immature Gran % (Auto) 0.6 H (0-0.5) % Neut % (Auto) 81.0 H (45.5-73.1) % Lymph % (Auto) 7.4 L (18.3-44.2) % [place]linger % (Auto) 10.0 H (2.6-8.5) % Eos % (Auto) 0.8 (0-4.4) % Baso % (Auto) 0.2 (0.2-1.2) % Lymph # (Auto) 1.21 (0.9-3.2) K/mm3 [place]linger # (Auto) 1.6 H (0.1-0.6) K/mm3 Eos # (Auto) 0.1 (0-0.3) K/mm3 Baso # (Auto) 0.0 (0.0-0.1) K/mm3 Abs Immat Gran (auto) 0.10 H (0.00-0.031) K/mm3 Absolute Neuts (auto) 13.2 H (1.3-6.7) K/mm3 Absolute Nucleated RBC 0.000 (0.0-0.012) K/mm3 Nucleated RBC % 0.0 (0.0-0.2) % PT 15.3 H (11.1-14.7) Seconds INR 1.2 APTT 37.2 H (22.3-36.8) Seconds Sodium 132 L (137-145) mmol/L Potassium 3.1 L (3.4-5.0) mmol/L Chloride 95 L (98-107) mmol/L Carbon Dioxide 32 H (22-30) mmol/L Anion Gap 5 (4-12) mmol/L BUN 16 (7-17) mg/dL Creatinine 0.60 L (0.7-1.0) mg/dL Estim Creat Clear Calc Not Reportable Estimated GFR > 60 (59 - ) Glucose 105 (65-110) mg/dL POC Capillary Glucose 95 (65-105) mg/dl Calcium 8.4 (8.4-10.2) mg/dL Total Bilirubin 0.8 (0.2-1.3) mg/dL AST 118 H (14-36) U/L ALT 182 H (6-35) U/L Alkaline Phosphatase 197 H (38-126) U/L Total Creatine Kinase 33 (30-135) U/L Troponin I 0.012 (0.000-0.034) ng/mL C-Reactive Protein 18.3 H (<1.0) mg/dL Total Protein 7.0 (6.3-8.2) g/dL Albumin 3.1 L (3.5-5.1) g/dL Procalcitonin 0.1 ng/mL Hepatitis A IgM Ab Negative (Negative) Hep Bs Antigen Negative (Negative) Hep B Core IgM Ab Negative (Negative) Hepatitis C Ab Screen Negative (Negative) Influenza A (RT-PCR) Negative (Negative) Influenza B (RT-PCR) Negative (Negative) RSV (RT-PCR) Negative (Negative) SARS-CoV-2 RNA (RT-PCR) Negative (Negative) Discharge Plan Discharge Clinical Impression: Diplopia Patient Disposition: Still a Patient Condition: Serious
[2024-04-04 17:02] LABS: Influenza A QL RT-PCR Negative (Negative); Influenza B QL RT-PCR Negative (Negative); RSV RNA, RT-PCR Negative (Negative); SARS-CoV-2 RNA PCR Negative (Negative)
--- NOTE | 2024-04-04 18:20 | P.HP_ITS ---
H&P: HPI History of Present Illness Date/Time: 04/04/24 18:20 Chief Complaint: Double vision. Narrative: This is an 84-year-old female smoker with chronic obstructive pulmonary disease, hypertension, hyperlipidemia, and prediabetes who presented to the emergency department via private vehicle for evaluation of double vision. The patient provides the following history. She was admitted to [facility] in [place] about a week and a half ago with confusion attributed to hyponatremia. Diuretics were held and she was placed on fluid restriction with improvement and she was discharged within a day. She was started on sodium tablets by her primary care provider and went to [facility] today to recheck her electrolytes. Her daughter then drove her home and during the drive the patient had sudden onset of horizontal, binocular diplopia. This continued for several hours and she came in for evaluation. On initial exam in the ED she was on able to gaze laterally with her left eye however over the course of a couple of hours she was able to do so without issue in the diplopia resolved. On exam she was noted to have right eyelid droop and she reports this has been present for about 4 years and she was evaluated by her visual and stock associate and doctor without answers. It is worse when she is tired or sick but never fully goes away. She denies difficulties speaking and swallowing, vertigo, focal weakness, paresthesias, and facial droop. She also denies chest pain, pleuritic pain, palpitations, shortness of breath, headache, fever, chills, sweats, abdominal pain, nausea, vomiting, diarrhea, and dysuria. In the ED: Vital signs were stable on arrival. Labs were significant for WBC count 16.3, hemoglobin 13.7, platelet 524, sodium 132, potassium 3.1, chloride 95, BUN 16, creatinine 0.60, glucose 105, AST 118, ALT 182, alkaline phosphatase 197. Brain CT did not show any significant findings and CTA of the head and neck were without significant stenosis, occlusion, or aneurysm. She is being admitted in this setting for close monitoring, MRI, and Neurology consult. Review of Systems Review of Systems: 12 systems were reviewed and are negativ e except for as per HPI. [facility] Past Medical History Medical History Prediabetes Essential hypertension Chronic obstructive pulmonary disease Cardiac murmur Angioedema Chronic insomnia Tobacco abuse Polycythemia Atherosclerosis of aorta Unspecified osteoarthritis, unspecified site Peripheral vascular disease Nicotine dependence, cigarettes, uncomplicated Insomnia, unspecified Gastro-esophageal reflux disease without esophagitis Major depressive disorder, recurrent, moderate Mixed hyperlipidemia Osteopenia after menopause Seborrheic keratosis, inflamed Stress incontinence in female Family History Family History Mother Hypertension Heart failure Sibling Patient's sister is in good health Father Carcinoma of colon Heart failure Social History Social History (Updated 04/04/24 @ 22:29 by Shanelle Root PA-C) Social History: Surrogate medical decision maker: Mayuri Arredondo, daughter. Code status: Full code. Years smoked: 60 Smoking status: Light tobacco smoker Second hand tobacco smoke exposure: Yes Additional smoking assessment comments: pt states she is a social smoker Alcohol intake: current Alcohol use details: occasional alcohol use in moderation Substance use: never Substance use type: does not use Do You Feel Safe in your Home?: Yes Lack of Transportation: No Lack of Food: Never True Current Housing: I Have Housing Concerned About Future Housing: No Difficulty Paying Gas/Electric Bills: No Difficulty Paying for Meds: No Currently Unemployed: YES Education: Don't Know Difficulty w/ Childcare or Family Care: No Living arrangements: with family Additional living arrangements comments: . Lives in [place]. Occupation/Education: retired Spiritual care concerns: No Meds Home Medications and Allergies Home Medications ?Medication ?Instructions ?Recorded ?Confirmed ?Type azelastine 137 mcg (0.1 %) nasal 137 mcg (0.137 mL) intranasal Q12H 06/29/23 04/04/24 Rx spray #30 mL aspirin 81 mg tablet,delayed 81 mg PO DAILY #100 tabs 07/07/23 04/04/24 Rx release (Berto Low Dose Aspirin) rosuvastatin 5 mg tablet 5 mg PO DAILY #100 tabs 07/07/23 04/04/24 Rx fluticasone fur. 100 mcg-umeclid 1 inh inhalation Q24H #60 ea 07/23/23 04/04/24 Rx 62.5 mcg-vilant 25 mcg inhalat.powder (Trelegy Ellipta) carvedilol 25 mg tablet 12.5 mg (1/2 x 25 mg) PO Q12H #200 01/21/24 04/04/24 Rx tabs triamterene 37.5 See Rx Instructions .Route 01/24/24 04/04/24 Rx mg-hydrochlorothiazide 25 mg tablet .COMPLEX #90 tabs meloxicam 15 mg tablet 15 mg PO DAILY #90 tabs 03/09/24 04/04/24 Rx pregabalin 25 mg capsule 50 mg (2 x 25 mg) PO TID #270 caps 03/09/24 04/04/24 Rx bupropion HCl 100 mg tablet,12 hr 100 mg PO QHS #30 tabs 03/22/24 04/04/24 Rx sustained-release buspirone 5 mg tablet 5 mg PO TID #60 tabs 03/22/24 04/04/24 Rx citalopram 20 mg tablet 20 mg PO DAILY #90 tabs 03/22/24 04/04/24 Rx furosemide 20 mg tablet 20 mg PO QAM PRN edema #30 tabs 03/23/24 04/04/24 Rx sodium chloride 1,000 mg soluble 1,000 mg PO DAILY #30 tabs 03/23/24 04/04/24 Rx tablet paroxetine HCl 20 mg tablet 20 mg PO DAILY #30 tabs 03/30/24 04/04/24 Rx quetiapine 25 mg tablet (Seroquel) 25 mg PO QHS #60 tabs 03/30/24 04/04/24 Rx alendronate 70 mg tablet 70 mg PO WEEKLY 04/04/24 04/04/24 History diphenhydramine 25 1 tablet PO HS PRN sleep 04/04/24 04/04/24 History mg-acetaminophen 500 mg tablet (Acetaminophen PM) telmisartan 40 mg tablet 40 mg PO DAILY 04/04/24 04/04/24 History Allergies Allergy/AdvReac Type Severity Reaction Status Date / Time lisinopril Allergy Severe Anaphylactic Verified 04/04/24 20:16 Shock ranitidine Allergy Intermediate RASH/ITCHIN Verified 04/04/24 20:16 G Penicillins Allergy Mild hives Verified 04/04/24 20:16 simvastatin Allergy Unknown myopathy Verified 04/04/24 20:16 amlodipine Allergy Swelling Verified 04/04/24 20:16 codeine Allergy Swelling Verified 04/04/24 20:16 of Lip/Tongue/Throat guaifenesin Allergy Swelling Verified 04/04/24 20:16 levofloxacin Allergy Swelling Verified 04/04/24 20:16 Vital Signs Vital Signs - 24 hr 04/04/24 14:07 04/04/24 15:09 04/04/24 15:10 Temperature 98.1 F Pulse Rate 79 76 78 Respiratory Rate 17 18 20 Blood Pressure 142/79 H 151/103 H Pulse Oximetry 96 95 95 Oxygen Delivery Room Air 04/04/24 15:21 04/04/24 15:30 04/04/24 15:31 Temperature Pulse Rate 75 73 74 Respiratory Rate 20 12 24 H Blood Pressure 162/71 H Pulse Oximetry 97 Oxygen Delivery 04/04/24 15:45 04/04/24 15:46 04/04/24 16:00 Temperature Pulse Rate 71 70 70 Respiratory Rate 22 H 22 H 24 H Blood Pressure 174/69 H Pulse Oximetry Oxygen Delivery 04/04/24 16:01 04/04/24 16:15 04/04/24 16:16 Temperature Pulse Rate 69 72 70 Respiratory Rate 22 H 13 16 Blood Pressure 157/78 H 153/78 H Pulse Oximetry Oxygen Delivery Exam Narrative: General: Well-developed elderly female supine in bed in no distress. Weight: 84.3 kg. BMI: 31.9. She is in good spirits. HEENT: Normocephalic, atraumatic. PERRL, EOMI. Conjunctiva mildly injected. Mild ptosis of the right eyelid. Sclera anicteric. Oral mucosa moist. Oropharynx clear. Tongue is midline. Neck: Supple. No carotid bruits. Respiratory: Lungs are clear to auscultation bilaterally. Cardiovascular: Regular rate and rhythm with S1-S2. Gastrointestinal: Abdomen is soft, nontender, and nondistended with positive bowel sounds. Skin: Warm and dry. No rash or lesions on limited exam. Extremities: No cyanosis, clubbing, or edema. Radial and pedal pulses intact. Neurological: Alert and oriented. Cranial nerves 2-12 are grossly intact. No nystagmus. Speech is clear and fluent. No facial asymmetry. Normal [id number]-fm-hecu and rapid alternating movements. Equal strength in upper and lower extremities. Psychiatric: Pleasant and cooperative with normal mood and affect. Judgment and insight intact. H&P: Results Labs Labs: Short CBC 04/04/24 Range/Units 13:54 WBC 16.3 H (4.5-10.0) K/mm3 Hgb 13.7 (12.0-15.0) g/dL Hct 40.9 (37.0-47.0) % Plt Count 524 H D (150-375) k/mm3 BMP 04/04/24 13:54 Sodium 132 L Potassium 3.1 L Chloride 95 L Carbon Dioxide 32 H BUN 16 Creatinine 0.60 L Glucose 105 Calcium 8.4 Cardiac Enzymes 04/04/24 Range/Units 13:54 Troponin I 0.012 (0.000-0.034) ng/mL Liver Function 04/04/24 Range/Units 13:54 Total Bilirubin 0.8 (0.2-1.3) mg/dL AST 118 H (14-36) U/L ALT 182 H (6-35) U/L Alkaline Phosphatase 197 H (38-126) U/L Albumin 3.1 L (3.5-5.1) g/dL Imaging Head CT 04/04/24 14:01 IMPRESSION: No acute intracranial findings. Head/Neck CTA 04/04/24 17:44 IMPRESSION: 1. Moderate nonspecific cerebral white matter disease, which likely represents chronic small vessel ischemic disease. 2. No aneurysm or significant intracranial arterial stenosis. 3. 0% stenosis of the proximal internal carotid arteries relative to normal distal artery lumen diameters (NASCET criteria). Assessment and Plan Assessment and plan (1) Diplopia: Code(s): H53.2 - Diplopia Status: Acute (2) Electrolyte abnormality: Code(s): E87.8 - Other disorders of electrolyte and fluid balance, not elsewhere classified Status: Acute (3) Elevated LFTs: Code(s): R79.89 - Other specified abnormal findings of blood chemistry Status: Acute (4) Chronic obstructive pulmonary disease: Code(s): J44.9 - Chronic obstructive pulmonary disease, unspecified Status: Acute (5) Essential hypertension: Code(s): I10 - Essential (primary) hypertension Status: Acute (6) Mixed hyperlipidemia: Code(s): E78.2 - Mixed hyperlipidemia Status: Chronic (7) Prediabetes: Code(s): R73.03 - Prediabetes Status: Acute Plan The patient presented to the emergency department for evaluation of diplopia as detailed in HPI. Labs, imaging, EKG, and all reports were personally reviewed. She had evidence of cranial nerve 6 palsy on examination however her symptoms and apparent palsy did resolve while she was still in the ED. Brain MRI ordered to rule out mass, demyelinating disease, and stroke. Myasthenia gravis is also in the differential diagnosis given the fact that she has ptosis is well of the right eyelid however that is an ongoing issue. She will be monitored closely overnight on telemetry with q.4 hours neurologic checks. Neurology has been consulted. Sodium and potassium are a bit low. Potassium will be replaced and monitored. Continue sodium tablets and fluid restriction. Repeat chemistries in a.m.. AST an ALT are a bit elevated though her abdominal exam is benign. Check hepatitis and right upper quadrant ultrasound and continue to monitor. WBC count is elevated though she gives no history to suggest underlying infection. Check CRP, procalcitonin, acetaminophen level, and hepatitis panel. Will continue to monitor for now. Urinalysis and chest x-ray are pending. Vital signs were reviewed and they are stable. Hold metformin as she received IV contrast. No need for sliding scale. Her COPD seems to be under control. Smoking cessation is encouraged and was discussed. Her medications will be reviewed and resumed as appropriate. Findings and treatment plan were discussed with the patient. Questions were solicited and answered to satisfaction. The patient's medical management will be taken over by the hospitalist team in a.m. Quality VTE Prophylaxis VTE prophylaxis: pharmacologic ordered The patient has been admitted under observation status. Hospitalist [facility] Advance Care Plan I have confirmed that the patient's Advanced Care Plan is present, code status is documented, or surrogate decision maker is listed in patient medical record.: Yes Medication Reconciliation I have utilized all available resources to obtain, update and review the patients current medications (includes all prescriptions, OTC, herbals, cannabis, and nutritional supplements).: Yes
[2024-04-04 19:23] LABS: Add Urine Microscopic? YES; Appearance Urine Turbid (Clear); Bilirubin Urine Negative (Negative); Blood Urine Negative (Negative); Color Urine Yellow (Yellow); Glucose Urine UA Negative (Negative); Ketones Urine 1+ mg/dL (Negative); Leukocyte Esterase Ur Negative LEU/UL (Negative); Nitrate Urine Negative (Negative); Protein Urine 1+ mg/dL (Negative); Specific Grav Ur > 1.045 (1.001-1.035)
[2024-04-04 19:49] LABS: RBC Urine 0-2 /hpf (0-2); Squamous Epithelial Cell Urine Few /hpf (Few); WBC Urine 0-3 /hpf (0-3)
[2024-04-04] MEDS: SODIUM CHLORIDE 0.9% IV 1,000 ML 100 ML IV CONT (19:50)
--- NOTE | 2024-04-04 20:26 | PC.NURSE ---
Admission report to BEKAH Hess.
[2024-04-04 20:29] LABS: Creatine Kinase 33 U/L (30-135)
[2024-04-04 20:32] LABS: Procalcitonin 0.1 ng/mL
[2024-04-04 21:00] LABS: CRP 18.3 mg/dL (<1.0)
[2024-04-04 21:30] LABS: Hepatitis B Surface Antigen Negative (Negative)
--- NOTE | 2024-04-04 21:34 | ADMGEN ---
This patient, Vee Roe, was admitted to Medical Room 346-01. Patient/family oriented to hospital policies and general routines including ID bracelet, bed and alarms, visiting hours, pain management, procedures, bathroom and other care routines, personal items, smoking policy, room service/diet, and visiting hours. Information on how to activate the Rapid Response Team has been discussed. Patient/Family are encouraged to report perceived risks to care and to ask questions if they do not understand what they are told or what they should do.
[2024-04-04 21:35] LABS: HAV RESULT Negative (Negative); Hepatitis B Core IgM Result Negative (Negative)
[2024-04-04 21:47] LABS: Hepatitis C Virus Antibody Negative (Negative)
[2024-04-04] MEDS: diphenhydrAMINE HCl CAP 25 MG CAPSULE PO (22:24)
[2024-04-04] MEDS: carvediloL 12.5 MG TABLET PO (22:24)
[2024-04-04] MEDS: ACETAMINOPHEN 500 MG TABLET PO (22:24)
[2024-04-04] MEDS: POTASSIUM CHLORIDE 20 MEQ PACKET (FOR LIQUID) 40 MEQ PO (22:24)
[2024-04-04] MEDS: PARoxetine 20 MG TABLET PO (22:25)
[2024-04-04 23:59] LABS: Acetaminophen < 10 ug/mL (10-30)
[2024-04-05] VITALS (14 sets, daily range): BP systolic 152–170; BP diastolic 65–94; PULSE 69–94; RESP 16–18; TEMP 36.4–36.9; O2SAT 91–93
[2024-04-05 06:14] LABS: Basophils Absolute Auto 0.1 K/mm3 (0.0-0.1); Basophils Percent Auto 0.3 % (0.2-1.2); Eosinophils Absolute Auto 0.2 K/mm3 (0-0.3); Eosinophils Percent Auto 1.5 % (0-4.4); Hematocrit 37.9 % (37.0-47.0); Hemoglobin 12.6 g/dL (12.0-15.0); Immature Granulocyte Absolute 0.09 K/mm3 (0.00-0.031); Immature Granulocyte Percent A 0.6 % (0-0.5); Lymphocytes Absolute Auto 1.03 K/mm3 (0.9-3.2); Lymphocytes Percent Auto 7.1 % (18.3-44.2); Mean Corpuscular HGB Conc 33.2 g/dl (32-36); Mean Corpuscular Hemoglobin 29.1 pg (26-34); Mean Corpuscular Volume 87.5 fl (80-100); Mean Platelet Volume 10.8 fl (7.4-10.4); Monocytes Absolute Auto 1.7 K/mm3 (0.1-0.6); Monocytes Percent Auto 11.7 % (2.6-8.5); Neutrophils Absolute Auto 11.5 K/mm3 (1.3-6.7); Neutrophils Percent Auto 78.8 % (45.5-73.1); Platelet Count Result 501 k/mm3 (150-375); Red Blood Count 4.33 M/mm3 (4.2-5.4); Red Cell Distribution Width 13.7 % (11.5-14.5); White Blood Count 14.6 K/mm3 (4.5-10.0)
[2024-04-05 06:39] LABS: Alanine Aminotransferase 153 U/L (6-35); Albumin Level 2.8 g/dL (3.5-5.1); Alkaline Phosphatase 175 U/L (38-126); Anion Gap 4 mmol/L (4-12); Aspartate Amino Transferase 105 U/L (14-36); Bilirubin,Total 0.7 mg/dL (0.2-1.3); Blood Urea Nitrogen 12 mg/dL (7-17); Calcium 8.1 mg/dL (8.4-10.2); Carbon Dioxide 32 mmol/L (22-30); Chloride 97 mmol/L (98-107); Estimated CRCL calculation 72 ml/min; Estimated Glomerular Filt Rate > 60; Glucose 99 mg/dL (65-110); Magnesium 1.3 mg/dL (1.6-2.3); Potassium 3.3 mmol/L (3.4-5.0); Sodium 133 mmol/L (137-145)
[2024-04-05] MEDS: FLUTICASONE/UMECLIDIN/VILANTER 100-62.5-25 MCG ELLIPTA 1 PUFF INHALATION (07:30)
[2024-04-05 07:38] LABS: Free T4 Free Thyroxine Reflex 1.74 ng/dL (0.78-2.19)
[2024-04-05 08:59] LABS: Total Triiodothyronine (T3) 0.76 NG/ML (0.97-1.69)
[2024-04-05] MEDS: carvediloL 12.5 MG TABLET PO ×2 (09:09→20:03)
[2024-04-05] MEDS: SODIUM CHLORIDE 1 GM TABLET PO (09:09)
[2024-04-05] MEDS: ASPIRIN 81 MG ENTERIC TABLET PO (09:09)
[2024-04-05] MEDS: ENOXAPARIN 40 MG/0.4 ML SYRINGE SUB-Q (09:10)
[2024-04-05] MEDS: TELMISARTAN 40 MG TABLET PO (09:10)
--- NOTE | 2024-04-05 10:00 | ECHO_ITS ---
Patient Info Name: Vee Roe Age: 84 years : 1940 Gender: Female Ht: 64 in Wt: 186 lbs BSA: 1.98 m2 HR: 76 bpm BP: 164 / 72 mmHg Heart Rhythm: Sinus Rhythm Technical Quality: Good Exam Date: 04/05/2024 9:51 AM Exam Location: Echo Lab Exam Room: [facility] Patient Status: Inpatient Admit Date: 04/04/2024 Staff Ordering Physician: Shanelle Root PA-C Manager Strategy & Account: Tiff Johnson RDCS Attending Provider: Bailee Andrews APRN Referring Physician: Dk ANTON; Exam Type: CA echo doppler color flow Study Info Complete two-dimensional, color flow and Doppler transthoracic echocardiogram is performed. Summary 1. Complete two-dimensional, color flow and Doppler transthoracic echocardiogram is performed. 2. Left ventricular chamber dimension is normal. 3. Left ventricular systolic function is hyperdynamic, estimated at >70%. 4. The left ventricular diastolic function is grade I diastolic dysfunction. 5. E/e' 24 is elevated. 6. Left atrial chamber dimension is moderately enlarged. 7. There is moderate aortic valve sclerosis. 8. There is mild aortic valve stenosis with a peak velocity of 268 cm/s, mean gradient of 13 mmHg, and aortic valve area of 2.0 cm2. 9. There is trace mitral valve regurgitation. 10. There is trace tricuspid valve regurgitation. 11. No pulmonary hypertension, estimated pulmonary arterial systolic pressure is 36 mmHg. Left Ventricle E/e' 24 is elevated. Left ventricular chamber dimension is normal. Left ventricular systolic function is hyperdynamic, estimated at >70%. The left ventricular diastolic function is grade I diastolic dysfunction. Right Ventricle Right ventricular systolic function is normal and with normal TAPSE 2.1 cm. Right ventricular chamber dimension is normal. Left Atria Left atrial chamber dimension is moderately enlarged. Right Atria Right atrial chamber dimension is normal. Aortic Valve The aortic valve is trileaflet. There is moderate aortic valve sclerosis. There is mild aortic valve stenosis with a peak velocity of 268 cm/s, mean gradient of 13 mmHg, and aortic valve area of 2.0 cm2. There is no aortic valve regurgitation. Pulmonic Valve There is no pulmonic regurgitation. Mitral Valve There is no mitral valve stenosis. There is trace mitral valve regurgitation. Tricuspid Valve There is trace tricuspid valve regurgitation. No pulmonary hypertension, estimated pulmonary arterial systolic pressure is 36 mmHg. Pericardium/Pleural There is no pericardial effusion. Inferior Vena Cava Normal inferior vena cava with >50% collapse upon inspiration consistent with normal right atrial pressure, 5 mmHg. Aorta The aortic root size at the sinus of Valsalva is normal. Left Ventricular Outflow Tract Name Value Normal LVOT 2D LVOT Diameter 2.0 cm LVOT Doppler LVOT Peak Gradient 9 mmHg LVOT Mean Gradient 4 mmHg LVOT VTI 36 cm LVOT VTI/AV VTI Ratio 0.6 LVOT Stroke Volume 117 ml LVOT CO 7.4 l/min LVOT CI 3.7 l/min/m2 Pulmonic Valve Name Value Normal PV Doppler PV Peak Gradient 4 mmHg Mitral Valve Name Value Normal MV Doppler MV Peak Gradient 10 mmHg MV Mean Gradient 3 mmHg MV Decel [place] 295 cm/s2 MV PHT 80 ms MV Area (PHT) 2.7 cm2 4.0-5.0 MV Area (Cont Eq VTI) 2.4 cm2 MV Regurgitation Doppler MR Peak Gradient 112 mmHg MV Diastolic Function MV E Peak Velocity 82 cm/s MV A Peak Velocity 124 cm/s MV E/A 0.7 MV Decel Time 276 ms MV Annular TDI MV E/e' (Septal) 23.7 <=8.0 MV E/e' (Lateral) 26.1 <=8.0 MV E/e' (Average) 24.9 Tricuspid Valve Name Value Normal TV Regurgitation Doppler TR Peak Velocity 276 cm/s TR Peak Gradient 31 mmHg Estimated PAP/RSVP RA Pressure 5 mmHg <=5 PA Systolic Pressure 36 mmHg <36 RV Systolic Pressure 36 mmHg <36 Aorta Name Value Normal Ascending Aorta Ao Root Diameter (MM) 2.9 cm Ao Root Diam Index (MM) 1.5 cm/m2 Aortic Valve Name Value Normal AV Doppler AV Peak Velocity 268 cm/s AV Peak Gradient 26 mmHg AV Mean Gradient 13 mmHg AV VTI 58 cm AV Area (Cont Eq VTI) 2.0 cm2 >=3.0 AV Area (Cont Eq Franc) 2.0 cm2 AV Regurgitation 2D LVOT Area 3.2 cm2 Ventricles Name Value Normal LV Dimensions 2D/MM IVS Diastolic Thickness (2D) 1.0 cm 0.6-1.0 LVID Diastole (2D) 5.3 cm 3.8-5.2 LVIW Diastolic Thickness (2D) 1.1 cm 0.6-0.9 LVID Systole (2D) 3.9 cm 2.2-3.5 LVOT Diameter 2.0 cm LV Mass (2D Cubed) 217.52 g 67.00-162.00 LV Mass Index (2D Cubed) 110 g/m2 43-95 Relative Wall Thickness (2D) 0.43 LV Fractional Shortening/Ejection Fraction 2D/MM LV Fractional Shortening (2D) 26 % 27-45 LV EF (2D Teicholz) 51 % 54-74 LV Diastolic Volume (4C MOD) 90 ml LV EF (4C MOD) 58 % LV Diastolic Volume (2C MOD) 92 ml LV EF (2C MOD) 62 % LV Diastolic Volume (BP MOD) 96 ml 46-106 LV Diastolic Volume Index (BP MOD) 49 ml/m2 29-61 LV Systolic Volume (BP MOD) 37 ml 14-42 LV Systolic Volume Index (BP MOD) 18 ml/m2 8-24 LV EF (BP MOD) 62 % 54-74 LV Diastolic Length (4C) 7.0 cm LV Systolic Length (4C) 6.7 cm LV Stroke Volume (4C MOD) 52 ml Atria Name Value Normal LA Dimensions LA Dimension (2D) 4.8 cm 2.7-3.8 LA Dimen Index (2D) 2.4 cm/m2 LA Dimension (MM) 4.7 cm 2.7-3.8 LA Volume (4C A-L) 66 ml LA Volume (BP A-L) 70 ml RA Dimensions RA Area (4C) 14.7 cm2 <=18.0 Report Signatures
--- NOTE | 2024-04-05 11:08 | P.CONNEU_ITS ---
Assessment and Plan Assessment and plan (1) Diplopia: Code(s): H53.2 - Diplopia Status: Acute Plan History of sudden onset of double vision with no evidence of extraocular movements restriction at this stage, could very well be the possibility of the ischemic 3rd nerve palsy but we have to rule out the possibility of brainstem involvement, MRI of the brain is pending and CTA has already been done. As soon as the MRI is done we will discuss with the patient again. Consult date: 04/05/24 HPI: Vee Roe is a 84 year old femaleAdmitted to the hospital through the emergency room for the complaints of double vision patient reported in the ER that around 10:00 a.m. he was driving when she felt acute onset of double vision And over the last few weeks she has not been feeling well for which she had an extensive workup at [facility] in fact she was going to have outpatient labs really checked when she was coming back and had an onset of the double vision she gave a history of no other associated neurological symptomatology. She has ongoing history of multiple drug allergies including being allergic to lisinopril, ranitidine, penicillin, simvastatin, amlodipine, codeine, guaifenesin, and levo floxacillin, she does have ongoing history of elevated hemoglobin A1c, cardiac murmur, tobacco abuse, hypertension, peripheral arterial occlusive disease, and she has smoked for 60 years at present she is only socially current alcohol intake, her initial exam in the emergency room revealed her to have inability to gaze to the left eye with the left eye unable to pass the midline when looking laterally she was able to look to the right with the left eye and has no double vision in that direction. Her vital signs were normal, CBC with platelet count of 524, basic metabolic panel with sodium 132 and potassium 3.1, mast scan otherwise normal, initial CT scan of the head negative for the bleed or major vascular involvement, CTA revealed no evidence of aneurysm or any stenosis, Review of Systems 2 Review of Systems: All systems reviewed & are unremarkable except as noted in HPI and below PMFSH Past Medical History Medical History Prediabetes Essential hypertension Chronic obstructive pulmonary disease Cardiac murmur Angioedema Chronic insomnia Tobacco abuse Polycythemia Atherosclerosis of aorta Unspecified osteoarthritis, unspecified site Peripheral vascular disease Nicotine dependence, cigarettes, uncomplicated Insomnia, unspecified Gastro-esophageal reflux disease without esophagitis Major depressive disorder, recurrent, moderate Mixed hyperlipidemia Osteopenia after menopause Seborrheic keratosis, inflamed Stress incontinence in female Family History Family History Mother Hypertension Heart failure Sibling Patient's sister is in good health Father Carcinoma of colon Heart failure Social History Social History Social History: Surrogate medical decision maker: Mayuri Arredondo, daughter. Code status: Full code. Years smoked: 60 Smoking status: Light tobacco smoker Second hand tobacco smoke exposure: Yes Additional smoking assessment comments: pt states she is a social smoker Alcohol intake: current Alcohol use details: occasional alcohol use in moderation Substance use: never Substance use type: does not use Do You Feel Safe in your Home?: Yes Lack of Transportation: No Lack of Food: Never True Current Housing: I Have Housing Concerned About Future Housing: No Difficulty Paying Gas/Electric Bills: No Difficulty Paying for Meds: No Currently Unemployed: YES Education: Don't Know Difficulty w/ Childcare or Family Care: No Living arrangements: with family Additional living arrangements comments: . Lives in [place]. Occupation/Education: retired Spiritual care concerns: No Meds Home Medications and Allergies Home Medications ?Medication ?Instructions ?Recorded ?Confirmed ?Type azelastine 137 mcg (0.1 %) nasal 137 mcg (0.137 mL) intranasal Q12H 06/29/23 04/04/24 Rx spray #30 mL aspirin 81 mg tablet,delayed 81 mg PO DAILY #100 tabs 07/07/23 04/04/24 Rx release (Berto Low Dose Aspirin) rosuvastatin 5 mg tablet 5 mg PO DAILY #100 tabs 07/07/23 04/04/24 Rx fluticasone fur. 100 mcg-umeclid 1 inh inhalation Q24H #60 ea 07/23/23 04/04/24 Rx 62.5 mcg-vilant 25 mcg inhalat.powder (Trelegy Ellipta) carvedilol 25 mg tablet 12.5 mg (1/2 x 25 mg) PO Q12H #200 01/21/24 04/04/24 Rx tabs triamterene 37.5 See Rx Instructions .Route 01/24/24 04/04/24 Rx mg-hydrochlorothiazide 25 mg tablet .COMPLEX #90 tabs meloxicam 15 mg tablet 15 mg PO DAILY #90 tabs 03/09/24 04/04/24 Rx pregabalin 25 mg capsule 50 mg (2 x 25 mg) PO TID #270 caps 03/09/24 04/04/24 Rx bupropion HCl 100 mg tablet,12 hr 100 mg PO QHS #30 tabs 03/22/24 04/04/24 Rx sustained-release buspirone 5 mg tablet 5 mg PO TID #60 tabs 03/22/24 04/04/24 Rx citalopram 20 mg tablet 20 mg PO DAILY #90 tabs 03/22/24 04/04/24 Rx furosemide 20 mg tablet 20 mg PO QAM PRN edema #30 tabs 03/23/24 04/04/24 Rx sodium chloride 1,000 mg soluble 1,000 mg PO DAILY #30 tabs 03/23/24 04/04/24 Rx tablet paroxetine HCl 20 mg tablet 20 mg PO DAILY #30 tabs 03/30/24 04/04/24 Rx quetiapine 25 mg tablet (Seroquel) 25 mg PO QHS #60 tabs 03/30/24 04/04/24 Rx alendronate 70 mg tablet 70 mg PO WEEKLY 04/04/24 04/04/24 History diphenhydramine 25 1 tablet PO HS PRN sleep 04/04/24 04/04/24 History mg-acetaminophen 500 mg tablet (Acetaminophen PM) telmisartan 40 mg tablet 40 mg PO DAILY 04/04/24 04/04/24 History Allergies Allergy/AdvReac Type Severity Reaction Status Date / Time lisinopril Allergy Severe Anaphylactic Verified 04/04/24 20:16 Shock ranitidine Allergy Intermediate RASH/ITCHIN Verified 04/04/24 20:16 G Penicillins Allergy Mild hives Verified 04/04/24 20:16 simvastatin Allergy Unknown myopathy Verified 04/04/24 20:16 amlodipine Allergy Swelling Verified 04/04/24 20:16 codeine Allergy Swelling Verified 04/04/24 20:16 of Lip/Tongue/Throat guaifenesin Allergy Swelling Verified 04/04/24 20:16 levofloxacin Allergy Swelling Verified 04/04/24 20:16 Vital Signs Vital Signs - 24 hr 04/04/24 14:07 04/04/24 15:09 04/04/24 15:10 Temperature 36.7 C Pulse Rate 79 76 78 Respiratory Rate 17 18 20 Blood Pressure 142/79 H 151/103 H Pulse Oximetry 96 95 95 Oxygen Delivery Room Air 04/04/24 15:21 04/04/24 15:30 04/04/24 15:31 Temperature Pulse Rate 75 73 74 Respiratory Rate 20 12 24 H Blood Pressure 162/71 H Pulse Oximetry 97 Oxygen Delivery 04/04/24 15:45 04/04/24 15:46 04/04/24 16:00 Temperature Pulse Rate 71 70 70 Respiratory Rate 22 H 22 H 24 H Blood Pressure 174/69 H Pulse Oximetry Oxygen Delivery 04/04/24 16:01 04/04/24 16:15 04/04/24 16:16 Temperature Pulse Rate 69 72 70 Respiratory Rate 22 H 13 16 Blood Pressure 157/78 H 153/78 H Pulse Oximetry Oxygen Delivery 04/04/24 20:39 04/04/24 21:26 04/04/24 22:24 Temperature 37.2 C Pulse Rate 84 76 76 Respiratory Rate 16 Blood Pressure 156/50 H Pulse Oximetry 94 Oxygen Delivery 04/05/24 00:00 04/05/24 04:00 04/05/24 04:57 Temperature 36.4 C Pulse Rate 78 69 76 Respiratory Rate 18 Blood Pressure Pulse Oximetry 92 Oxygen Delivery 04/05/24 05:00 04/05/24 07:33 04/05/24 09:09 Temperature Pulse Rate 82 Respiratory Rate Blood Pressure 164/72 H Pulse Oximetry 91 Oxygen Delivery Room Air 04/05/24 09:10 04/05/24 09:10 Temperature Pulse Rate 72 Respiratory Rate Blood Pressure Pulse Oximetry Oxygen Delivery Room Air Exam 2 Narrative: exam today revealed her to be awake alert cooperative in no obvious acute distress, head normocephalic with no bruit, ear nose throat examination normal, neck supple with no meningeal signs no cervical bruits, lungs clear to auscultation, abdomen is soft nontender normal bowel sounds, his skin normal, neurologically she is awake alert oriented x3, his speech not dysphasic not dysarthric not dysphonic, pupils round regular reacting to light equally, extraocular movements are full with no nystagmus, facial sensation intact, face symmetrical on smile and spontaneously, tongue in the oral cavity no fasciculation, motor examination revealed normal strength and tone in upper and lower extremities with no evidence of ataxia or dysmetria, deep tendon reflexes symmetrical and plantar responses downgoing there is no evidence of ataxia or dysmetria on [id number]. Results Labs 04/05/24 05:42 04/05/24 05:42 Labs: Short CBC 04/04/24 04/05/24 Range/Units 13:54 05:42 WBC 16.3 H 14.6 H (4.5-10.0) K/mm3 Hgb 13.7 12.6 (12.0-15.0) g/dL Hct 40.9 37.9 (37.0-47.0) % Plt Count 524 H D 501 H (150-375) k/mm3 BMP 04/04/24 04/05/24 13:54 05:42 Sodium 132 L 133 L Potassium 3.1 L 3.3 L Chloride 95 L 97 L Carbon Dioxide 32 H 32 H BUN 16 12 Creatinine 0.60 L 0.50 L Glucose 105 99 Calcium 8.4 8.1 L Cardiac Enzymes 04/04/24 Range/Units 13:54 Total Creatine Kinase 33 (30-135) U/L Troponin I 0.012 (0.000-0.034) ng/mL Liver Function 04/04/24 04/05/24 Range/Units 13:54 05:42 Total Bilirubin 0.8 0.7 (0.2-1.3) mg/dL AST 118 H 105 H (14-36) U/L ALT 182 H 153 H (6-35) U/L Alkaline Phosphatase 197 H 175 H (38-126) U/L Albumin 3.1 L 2.8 L (3.5-5.1) g/dL Urine 04/04/24 Range/Units 18:44 Urine Color Yellow (Yellow) Urine Appearance Turbid H (Clear) Urine pH 7.0 (5.0-9.0) Ur Specific [place] > 1.045 H (1.001-1.035) Urine Protein 1+ H (Negative) mg/dL Urine Glucose (UA) Negative (Negative) mg/dL
--- NOTE | 2024-04-05 16:03 | P.PNIM_ITS ---
Progress Note: A&P Assessment and Plan (1) Diplopia: Code(s): H53.2 - Diplopia Status: Acute Assessment and Plan: * patient presenting with double vision that started yesterday * Head CT was negative for any acute intracranial findings * head/neck CTA showed moderate nonspecific cerebral white matter disease likely representing chronic small-vessel ischemic disease, no aneurysm or significant intracranial arterial stenosis. * Awaiting results MRI of the brain and brainstem * Echo showing hyperdynamic left ventricular systolic function with an estimated EF of greater than 70%, grade 1 diastolic dysfunction, moderate aortic valve sclerosis, mild aortic valve stenosis. * Neurology consulted and following * continue neuro checks * continue cardiac telemetry (2) Electrolyte abnormality: Code(s): E87.8 - Other disorders of electrolyte and fluid balance, not elsewhere classified Status: Acute Assessment and Plan: * potassium 3.1 today * will give 40 mEq of potassium today * continue to trend (3) Elevated LFTs: Code(s): R79.89 - Other specified abnormal findings of blood chemistry Status: Acute Assessment and Plan: * liver enzymes showing an AST of 118, ALT 182, alkaline phos 197 * hepatitis panel was negative * abdomen ultrasound showing coarsened liver echotexture which can be seen with steatosis (4) Chronic obstructive pulmonary disease: Code(s): J44.9 - Chronic obstructive pulmonary disease, unspecified Status: Acute Assessment and Plan: * chest x-ray showed cardiomegaly * continue Trelegy Ellipta (5) Essential hypertension: Code(s): I10 - Essential (primary) hypertension Status: Acute Assessment and Plan: * blood pressure ranging blood pressure ranging 152/94 to 164/72 * continue carvedilol * continue to trend (6) Mixed hyperlipidemia: Code(s): E78.2 - Mixed hyperlipidemia Status: Chronic Assessment and Plan: * currently on aspirin 81 mg daily * Not on a statin Time Spent With Patient Time with patient: Greater than 35 minutes Subjective Date/time seen: 04/05/24 16:03 Interval history: Interval history: This is an 84-year-old female who presented to the hospital on 04/04/2024 for evaluation double vision. Workup in the hospital included a head CT which was negative for any acute intracranial process. Head/neck CTA showed moderate nonspecific cerebral white matter disease likely representing chronic small- vessel ischemic disease, no aneurysm or significant intracranial arterial stenosis. Chest x-ray showed cardiomegaly. Abdomen ultrasound shown coarsened liver echotexture which may be seen with steatosis. Initial labs shown a white blood cell count of 16.4, platelet count of 517, chloride 90, creatinine 0.73, A ST 112, ALT 163, alkaline phos 224, procalcitonin 0.1. A UA was obtained and showed turbid urine appearance, greater than 1.045 urine specific gravity, 1+ urine protein, 1+ urine ketones, otherwise negative. Respiratory panel was obtained and was negative for influenza a and B, RSV, COVID. Hepatitis panel was obtained and was negative. EKG showed sinus rhythm with a rate of 72, QTC 414. Echo was obtained and shown hyperdynamic left ventricular systolic function with an estimated EF of greater than 70%, grade 1 diastolic dysfunction, moderate aortic valve sclerosis, mild aortic valve stenosis. Patient was given 1 L of normal saline, 40 mEq of potassium in the ED. Neurology was consulted. Subjective: Patient denies any diplopia currently. She also denies any lightheadedness, dizziness, fever, chills, nausea, vomiting, diarrhea, abdominal pain, chest pain, shortness a breath, changes in sensation, numbness, tingling. Patient endorses headache off and on today. She is just getting back from MRI. Labs and imaging reviewed. Review of Systems Review of Systems: All systems reviewed & are unremarkable except as noted in HPI and below Constitutional: Constitutional: Reports as per HPI and Reports no additional constitutional complaints Eyes: Eyes: Reports as per HPI and Reports no additional eye complaints ENT: Reports system reviewed and no additional complaints, except as documented and Reports as per HPI Cardiovascular: Cardiovascular: Reports as per HPI and Reports no additional cardiovascular complaints Respiratory: Respiratory: Reports as per HPI and Reports no additional respiratory complaints Gastrointestinal: Gastrointestinal: Reports as per HPI and Reports no additional gastrointestinal complaints Genitourinary: Genitourinary: Reports no additional female genitourinary complaints and Reports as per HPI Musculoskeletal: Musculoskeletal: Reports no additional musculoskeletal complaints and Reports as per HPI Integumentary/Breasts: Skin/Breast: Reports system reviewed and no additional complaints, except as docu and Reports as per HPI Neurologic: Reports system reviewed and no additional complaints, except as documented and Reports as per HPI Psychiatric: Psychiatric: Reports no additional psychiatric complaints and Reports as per HPI Exam Narrative: General: In no acute distress, well nourished Head: atraumatic, no encephalopathy Eyes: EOMI, PERRLA, sclera clear, denies double vision or any other vision ervin ges currently ENT: moist mucous membranes, nasal passages clear Neck: supple, no JVD, no adenopathy, trachea midline Cardiac: Normal S1 and S2. Aortic murmur noted. No gallops or friction rubs, peripheral pulses intact. Respiratory: Lungs clear to auscultation, diminished in the bases, no adventitious lung sounds, currently on room air Gastrointestinal: soft, non-distended, non-tender, normoactive bowel sounds. : voiding without difficulty. Extremities: moves all extremities well, no edema, good ROM, strength 5/5 Skin: clean, dry, intact. No wounds or lesions. Neuro: Alert and oriented x4, cranial nerves intact, no neuro deficits. Psych: normal mood, normal affect, interactive Objective Data Vital Signs Vital Signs: Vital Signs - 24 hr 04/04/24 16:15 04/04/24 16:16 04/04/24 20:39 Temperature Pulse Rate 72 70 84 Respiratory Rate 13 16 Blood Pressure 153/78 H Pulse Oximetry Oxygen Delivery 04/04/24 21:26 04/04/24 22:24 04/05/24 00:00 Temperature 98.9 F Pulse Rate 76 76 78 Respiratory Rate 16 Blood Pressure 156/50 H Pulse Oximetry 94 Oxygen Delivery 04/05/24 04:00 04/05/24 04:57 04/05/24 05:00 Temperature 97.6 F Pulse Rate 69 76 Respiratory Rate 18 Blood Pressure 164/72 H Pulse Oximetry 92 Oxygen Delivery 04/05/24 07:33 04/05/24 09:09 04/05/24 09:10 Temperature Pulse Rate 82 Respiratory Rate Blood Pressure Pulse Oximetry 91 Oxygen Delivery Room Air Room Air 04/05/24 09:10 04/05/24 14:00 Temperature 98.4 F Pulse Rate 72 94 Respiratory Rate 18 Blood Pressure 152/94 H Pulse Oximetry 91 Oxygen Delivery Intake/Output Intake/Output: Intake & Output 04/02/24 04/03/24 04/04/24 04/05/24 23:59 23:59 23:59 23:59 Intake Total 200 100 Balance 200 100 Meds/Results Medications: Active Medications Generic Name Dose Route Start Last Admin Trade Name Freq PRN Reason Stop Dose Admin Acetaminophen 650 mg 04/04/24 19:32 Acetaminophen 325 Mg Tablet PO Q6H PRN Mild Pain (1-3) or Fever Acetaminophen 500 mg 04/04/24 21:52 04/04/24 22:24 Acetaminophen 500 Mg Tablet PO 500 mg HS PRN Administration sleep Aspirin 81 mg 04/05/24 09:00 04/05/24 09:09 Aspirin 81 Mg Enteric Tablet PO 81 mg DAILY MICHAEL Administration Carvedilol 12.5 mg 04/04/24 21:50 04/05/24 09:09 Carvedilol 12.5 Mg Tablet PO 12.5 mg Q12HR MICHAEL Administration Diphenhydramine HCl 25 mg 04/04/24 21:52 04/04/24 22:24 Diphenhydramine Hcl Cap 25 Mg Capsule PO 25 mg HS PRN Administration sleep Enoxaparin Sodium 40 mg 04/05/24 09:00 04/05/24 09:10 Enoxaparin 40 Mg/0.4 Ml Syringe SUB-Q 40 mg DAILY MICHAEL Administration Fluticasone/Umeclidinium/Vilanterol 1 puff 04/05/24 08:00 04/05/24 07:30 Fluticasone/Umeclidin/Vilanter 100-62.5-25 Mcg Ellipta INHALATION 1 puff DAILYRT MICHAEL Administration Furosemide 20 mg 04/04/24 21:46 Furosemide 20 Mg Tablet PO QAM PRN edema Paroxetine HCl 20 mg 04/04/24 21:55 04/04/24 22:25 Paroxetine 20 Mg Tablet PO 20 mg HS MICHAEL Administration Perflutren Lipid Microsphere 0 ml 04/04/24 19:32 Perflutren Lipid Microspheres 1.5 Ml Vial Diluted To 10 Ml Total Volume IV PUSH 04/07/24 19:33 ONCE PRN adequate visualization Protocol Sodium Chloride 1 gm 04/05/24 09:00 04/05/24 09:09 Sodium Chloride 1 Gm Tablet PO 1 gm DAILY MICHAEL Administration Telmisartan 40 mg 04/05/24 09:00 04/05/24 09:10 Telmisartan 40 Mg Tablet PO 40 mg DAILY MICHAEL Administration Radiology Results: ITS Impressions Head CT 04/04/24 14:01 IMPRESSION: No acute intracranial findings. Head/Neck CTA 04/04/24 17:44 IMPRESSION: 1. Moderate nonspecific cerebral white matter disease, which likely represents chronic small vessel ischemic disease. 2. No aneurysm or significant intracranial arterial stenosis. 3. 0% stenosis of the proximal internal carotid arteries relative to normal distal artery lumen diameters (NASCET criteria). Chest X-Ray 04/04/24 20:05 IMPRESSION: 1. Cardiomegaly. Abdomen Ultrasound 04/04/24 21:03 IMPRESSION: 1. Coarsened liver echotexture, which may be seen with steatosis. Labs Labs: Laboratory Results - last 24 hr 04/04/24 04/04/24 04/04/24 13:54 16:17 18:44 WBC RBC Hgb Hct MCV MCH MCHC RDW Plt Count MPV Immature Gran % (Auto) Neut % (Auto) Lymph % (Auto) [place] % (Auto) Eos % (Auto) Baso % (Auto) Lymph # (Auto) [place] # (Auto) Eos # (Auto) Baso # (Auto) Abs Immat Gran (auto) Absolute Neuts (auto) Absolute Nucleated RBC Nucleated RBC % Sodium Potassium Chloride Carbon Dioxide Anion Gap BUN Creatinine Estim Creat Clear Calc Estimated GFR Glucose Calcium Magnesium Total Bilirubin AST ALT Alkaline Phosphatase Total Creatine Kinase 33 C-Reactive Protein 18.3 H Total Protein Albumin Procalcitonin 0.1 TSH (Reflex) Free T4 Total T3 Urine Color Yellow Urine Appearance Turbid H Urine pH 7.0 Ur Specific [place] > 1.045 H Urine Protein 1+ H Urine Glucose (UA) Negative Urine Ketones 1+ H Ur Blood (Man) Negative Urine Nitrate Negative Urine Bilirubin Negative Urine Urobilinogen 1.0 Leukocyte Esterase Rfl Negative Urine RBC 0-2 Urine WBC 0-3 Ur Squamous Epith Cells Few Acetaminophen Hepatitis A IgM Ab Negative Hep Bs Antigen Negative Hep B Core IgM Ab Negative Hepatitis C Ab Screen Negative Influenza A (RT-PCR) Negative Influenza B (RT-PCR) Negative RSV (RT-PCR) Negative SARS-CoV-2 RNA (RT-PCR) Negative 04/04/24 04/05/24 23:10 05:42 WBC 14.6 H RBC 4.33 Hgb 12.6 Hct 37.9 MCV 87.5 MCH 29.1 MCHC 33.2 RDW 13.7 Plt Count 501 H MPV 10.8 H Immature Gran % (Auto) 0.6 H Neut % (Auto) 78.8 H Lymph % (Auto) 7.1 L [place] % (Auto) 11.7 H Eos % (Auto) 1.5 Baso % (Auto) 0.3 Lymph # (Auto) 1.03 [place] # (Auto) 1.7 H Eos # (Auto) 0.2 Baso # (Auto) 0.1 Abs Immat Gran (auto) 0.09 H Absolute Neuts (auto) 11.5 H Absolute Nucleated RBC 0.000 Nucleated RBC % 0.0 Sodium 133 L Potassium 3.3 L Chloride 97 L Carbon Dioxide 32 H Anion Gap 4 BUN 12 Creatinine 0.50 L Estim Creat Clear Calc 72 Estimated GFR > 60 Glucose 99 Calcium 8.1 L Magnesium 1.3 L Total Bilirubin 0.7 AST 105 H ALT 153 H Alkaline Phosphatase 175 H Total Creatine Kinase C-Reactive Protein Total Protein 6.0 L Albumin 2.8 L Procalcitonin TSH (Reflex) 4.020 Free T4 1.74 Total T3 0.76 L Urine Color Urine Appearance Urine pH Ur Specific [place] Urine Protein Urine Glucose (UA) Urine Ketones Ur Blood (Man) Urine Nitrate Urine Bilirubin Urine Urobilinogen Leukocyte Esterase Rfl Urine RBC Urine WBC Ur Squamous Epith Cells Acetaminophen < 10 L Hepatitis A IgM Ab Hep Bs Antigen Hep B Core IgM Ab Hepatitis C Ab Screen Influenza A (RT-PCR) Influenza B (RT-PCR) RSV (RT-PCR) SARS-CoV-2 RNA (RT-PCR) Quality VTE Prophylaxis VTE prophylaxis: pharmacologic ordered
[2024-04-05] MEDS: POTASSIUM CHLORIDE 20 MEQ ER TABLET 40 MEQ PO (17:42)
[2024-04-05] MEDS: PARoxetine 20 MG TABLET PO (20:03)
[2024-04-05] MEDS: diphenhydrAMINE HCl CAP 25 MG CAPSULE PO (20:03)
[2024-04-05] MEDS: ACETAMINOPHEN 500 MG TABLET PO (20:03)
[2024-04-06] MEDS: FLUTICASONE/UMECLIDIN/VILANTER 100-62.5-25 MCG ELLIPTA 1 PUFF INHALATION ×2 (05:37→05:38)
[2024-04-06 06:00] VITALS: BP 172/98; PULSE 77; RESP 18; TEMP 36.4; O2SAT 95
[2024-04-06 06:00] LABS: Basophils Absolute Auto 0.1 K/mm3 (0.0-0.1); Basophils Percent Auto 0.7 % (0.2-1.2); Eosinophils Absolute Auto 0.3 K/mm3 (0-0.3); Eosinophils Percent Auto 1.9 % (0-4.4); Hematocrit 38.9 % (37.0-47.0); Immature Granulocyte Absolute 0.05 K/mm3 (0.00-0.031); Immature Granulocyte Percent A 0.4 % (0-0.5); Lymphocytes Absolute Auto 1.29 K/mm3 (0.9-3.2); Lymphocytes Percent Auto 9.5 % (18.3-44.2); Mean Corpuscular HGB Conc 33.4 g/dl (32-36); Mean Corpuscular Hemoglobin 29.4 pg (26-34); Mean Platelet Volume 10.8 fl (7.4-10.4); Monocytes Absolute Auto 1.6 K/mm3 (0.1-0.6); Monocytes Percent Auto 11.8 % (2.6-8.5); Neutrophils Absolute Auto 10.3 K/mm3 (1.3-6.7); Neutrophils Percent Auto 75.7 % (45.5-73.1); Platelet Count Result 512 k/mm3 (150-375); Red Blood Count 4.42 M/mm3 (4.2-5.4); Red Cell Distribution Width 13.8 % (11.5-14.5); White Blood Count 13.5 K/mm3 (4.5-10.0)
[2024-04-06 06:12] LABS: Alanine Aminotransferase 134 U/L (6-35); Albumin Level 2.9 g/dL (3.5-5.1); Alkaline Phosphatase 165 U/L (38-126); Anion Gap 2 mmol/L (4-12); Aspartate Amino Transferase 89 U/L (14-36); Bilirubin,Total 0.6 mg/dL (0.2-1.3); Blood Urea Nitrogen 9 mg/dL (7-17); Calcium 8.3 mg/dL (8.4-10.2); Carbon Dioxide 33 mmol/L (22-30); Chloride 99 mmol/L (98-107); Estimated CRCL calculation 72 ml/min; Estimated Glomerular Filt Rate > 60; Glucose 110 mg/dL (65-110); Potassium 3.6 mmol/L (3.4-5.0); Sodium 134 mmol/L (137-145)
[2024-04-06 08:26] VITALS: PULSE 79
[2024-04-06] MEDS: TELMISARTAN 40 MG TABLET PO (08:26)
[2024-04-06] MEDS: ASPIRIN 81 MG ENTERIC TABLET PO (08:26)
[2024-04-06] MEDS: carvediloL 12.5 MG TABLET PO (08:26)
[2024-04-06] MEDS: SODIUM CHLORIDE 1 GM TABLET PO (08:26)
--- NOTE | 2024-04-06 12:00 | WPDNEUROPN ---
Progress Note: A&P Assessment and Plan (1) Liver disease: Code(s): K76.9 - Liver disease, unspecified Status: Acute (2) Generalized weakness: Code(s): R53.1 - Weakness Status: Acute Plan Her muscle enzyme CPK was within normal range however Liver enzymes were high. her serum Magnesium is low at 1.3 and hemoglobin A1c was slightly high at 6.3. CT angiogram of the head and neck did not show any significant abnormality. MRI of the brain shows white matter changes however no acute findings were noted. White cell count was high at 14.6 She requires general medical workup for underlying liver disease or metabolic problems or sepsis. She feels generally dizzy and weak but denies any diplopia. Subjective Date/time seen: 04/06/24 12:00 Interval history: The patient's patient was seen previously for complaints of possible diplopia however today she states that she was not having double vision but rather she was feeling dizzy. She feels very weak and lethargic. It was noted that her liver enzymes were high and white cell count is high and platelet count is 501. White matter changes were noted MRI of the brain. CT angiogram of the head and neck did not show any large vessel disease. CT scan abdomen shows changes in the liver. Magnesium level was low at 1.3. Hemoglobin A1c was 6.3. Patient denies any specific symptoms however it is difficult to have a detailed conversation because he is hard of hearing and she left her hearing aid in [place]. She normally lives in [place] but is visiting her children who live in this area. She lives by herself. She denies any difficulty swallowing. She does not have any diplopia. Review of Systems Review of Systems: A detailed review of symptom was difficult due to the hearing loss however patient explain expresses lethargy and weakness and wants to go back to bed From her chair. Exam Narrative: Fully conscious alert. She is oriented to self time place and person. No aphasia or dysarthria. She appears to be somewhat tremulous. Examination head and neck shows no evidence of external trauma. Cranial nerves you testing intact. Motor system normal power and tone in both upper lower limb. Patient finger-nose appears normal. Rapid alternating movement of the upper lower limbs did not show any impairment. Sensory examination grossly intact. Objective Data Vital Signs Vital Signs: Vital Signs - 24 hr 04/05/24 14:00 04/05/24 16:00 04/05/24 20:00 Temperature 98.4 F Pulse Rate 94 75 Respiratory Rate 18 Blood Pressure 152/94 H Pulse Oximetry 91 Oxygen Delivery Room Air 04/05/24 20:00 04/05/24 20:03 04/05/24 21:34 Temperature 97.9 F Pulse Rate 88 90 72 Respiratory Rate 16 Blood Pressure 170/65 H Pulse Oximetry 93 Oxygen Delivery 04/05/24 22:11 04/06/24 06:00 04/06/24 08:00 Temperature 97.6 F Pulse Rate 77 Respiratory Rate 18 Blood Pressure 155/78 H 172/98 H Pulse Oximetry 95 Oxygen Delivery Room Air 04/06/24 08:26 Temperature Pulse Rate 79 Respiratory Rate Blood Pressure Pulse Oximetry Oxygen Delivery Intake/Output Intake/Output: Intake & Output 04/03/24 04/04/24 04/05/24 04/06/24 23:59 23:59 23:59 23:59 Intake Total 200 320 480 Balance 200 320 480 Meds/Results Medications: Active Medications Generic Name Dose Route Start Last Admin Trade Name Freq PRN Reason Stop Dose Admin Acetaminophen 650 mg 04/04/24 19:32 Acetaminophen 325 Mg Tablet PO Q6H PRN Mild Pain (1-3) or Fever Acetaminophen 500 mg 04/04/24 21:52 04/05/24 20:03 Acetaminophen 500 Mg Tablet PO 500 mg HS PRN Administration sleep Aspirin 81 mg 04/05/24 09:00 04/06/24 08:26 Aspirin 81 Mg Enteric Tablet PO 81 mg DAILY MICHAEL Administration Carvedilol 12.5 mg 04/04/24 21:50 04/06/24 08:26 Carvedilol 12.5 Mg Tablet PO 12.5 mg Q12HR MICHAEL Administration Diphenhydramine HCl 25 mg 04/04/24 21:52 04/05/24 20:03 Diphenhydramine Hcl Cap 25 Mg Capsule PO 25 mg HS PRN Administration sleep Enoxaparin Sodium 40 mg 04/05/24 09:00 04/06/24 08:27 Enoxaparin 40 Mg/0.4 Ml Syringe SUB-Q Not Given DAILY MICHAEL Fluticasone/Umeclidinium/Vilanterol 1 puff 04/05/24 08:00 04/06/24 05:38 Fluticasone/Umeclidin/Vilanter 100-62.5-25 Mcg Ellipta INHALATION 1 puff DAILYRT MICHAEL Administration Furosemide 20 mg 04/04/24 21:46 Furosemide 20 Mg Tablet PO QAM PRN edema Paroxetine HCl 20 mg 04/04/24 21:55 04/05/24 20:03 Paroxetine 20 Mg Tablet PO 20 mg HS MICHAEL Administration Perflutren Lipid Microsphere 0 ml 04/04/24 19:32 Perflutren Lipid Microspheres 1.5 Ml Vial Diluted To 10 Ml Total Volume IV PUSH 04/07/24 19:33 ONCE PRN adequate visualization Protocol Sodium Chloride 1 gm 04/05/24 09:00 04/06/24 08:26 Sodium Chloride 1 Gm Tablet PO 1 gm DAILY MICHAEL Administration Telmisartan 40 mg 04/05/24 09:00 04/06/24 08:26 Telmisartan 40 Mg Tablet PO 40 mg DAILY MICHAEL Administration Radiology Results: ITS Impressions Head CT 04/04/24 14:01 IMPRESSION: No acute intracranial findings. Head/Neck CTA 04/04/24 17:44 IMPRESSION: 1. Moderate nonspecific cerebral white matter disease, which likely represents chronic small vessel ischemic disease. 2. No aneurysm or significant intracranial arterial stenosis. 3. 0% stenosis of the proximal internal carotid arteries relative to normal distal artery lumen diameters (NASCET criteria). Chest X-Ray 04/04/24 20:05 IMPRESSION: 1. Cardiomegaly. Abdomen Ultrasound 04/04/24 21:03 IMPRESSION: 1. Coarsened liver echotexture, which may be seen with steatosis. Brain MRI 04/05/24 17:56 IMPRESSION: 1. Moderate nonspecific cerebral white matter disease, which likely represents chronic small vessel ischemic disease. Labs Labs: Laboratory Results - last 24 hr 04/06/24 05:37 WBC 13.5 H RBC 4.42 Hgb 13.0 Hct 38.9 MCV 88.0 MCH 29.4 MCHC 33.4 RDW 13.8 Plt Count 512 H MPV 10.8 H Immature Gran % (Auto) 0.4 Neut % (Auto) 75.7 H Lymph % (Auto) 9.5 L [place] % (Auto) 11.8 H Eos % (Auto) 1.9 Baso % (Auto) 0.7 Lymph # (Auto) 1.29 [place] # (Auto) 1.6 H Eos # (Auto) 0.3 Baso # (Auto) 0.1 Abs Immat Gran (auto) 0.05 H Absolute Neuts (auto) 10.3 H Absolute Nucleated RBC 0.000 Nucleated RBC % 0.0 Sodium 134 L Potassium 3.6 Chloride 99 Carbon Dioxide 33 H Anion Gap 2 L BUN 9 Creatinine 0.50 L Estim Creat Clear Calc 72 Estimated GFR > 60 Glucose 110 Calcium 8.3 L Total Bilirubin 0.6 AST 89 H ALT 134 H Alkaline Phosphatase 165 H Total Protein 6.0 L Albumin 2.9 L
[2024-04-06 13:29] LABS: Cholesterol 136 mg/dL (0-200); HDL Direct 20 mg/dL; Magnesium 1.4 mg/dL (1.6-2.3); Triglycerides 119 mg/dL (<150)
[2024-04-06 13:40] LABS: LDL Cholesterol Direct 79 mg/dL
[2024-04-06 14:00] VITALS: BP 184/85; PULSE 78; RESP 18; TEMP 36.6; O2SAT 97
--- NOTE | 2024-04-06 16:04 | P.DS_ITS ---
DS: Admitting Diagnosis Discharge Date 04/06/2024 Admitting Diagnosis DOUBLE VISION DS: Discharge Diagnosis Discharge Diagnosis (1) Diplopia: Code(s): H53.2 - Diplopia Status: Acute Assessment and Plan: * patient presenting with double vision that started yesterday * Head CT was negative for any acute intracranial findings * head/neck CTA showed moderate nonspecific cerebral white matter disease likely representing chronic small-vessel ischemic disease, no aneurysm or significant intracranial arterial stenosis. * Awaiting results MRI of the brain and brainstem * Echo showing hyperdynamic left ventricular systolic function with an estimated EF of greater than 70%, grade 1 diastolic dysfunction, moderate aortic valve sclerosis, mild aortic valve stenosis. * Neurology consulted and following * continue neuro checks * continue cardiac telemetry (2) Electrolyte abnormality: Code(s): E87.8 - Other disorders of electrolyte and fluid balance, not elsewhere classified Status: Acute Assessment and Plan: * potassium 3.1 today * will give 40 mEq of potassium today * continue to trend (3) Elevated LFTs: Code(s): R79.89 - Other specified abnormal findings of blood chemistry Status: Acute Assessment and Plan: * liver enzymes showing an AST of 118, ALT 182, alkaline phos 197 * hepatitis panel was negative * abdomen ultrasound showing coarsened liver echotexture which can be seen with steatosis (4) Chronic obstructive pulmonary disease: Code(s): J44.9 - Chronic obstructive pulmonary disease, unspecified Status: Acute Assessment and Plan: * chest x-ray showed cardiomegaly * continue Trelegy Ellipta (5) Essential hypertension: Code(s): I10 - Essential (primary) hypertension Status: Acute Assessment and Plan: * blood pressure ranging blood pressure ranging 152/94 to 164/72 * continue carvedilol * continue to trend (6) Mixed hyperlipidemia: Code(s): E78.2 - Mixed hyperlipidemia Status: Chronic Assessment and Plan: * currently on aspirin 81 mg daily * Not on a statin DS: Summary Hospital Course Reason for hospitalization: Double vision Hospital Course: Patient was a 84-year-old female smoker with chronic obstructive pulmonary disease, hypertension, hyperlipidemia, and prediabetes who presented to the emergency department via private vehicle for evaluation of double vision. The patient provides the following history. She was admitted to [facility] in [place] about a week and a half ago with confusion attributed to hyponatremia. Diuretics were held and she was placed on fluid restriction with improvement and she was discharged within a day. She was started on sodium tablets by her primary care provider. The patient had sudden onset of horizontal, binocular diplopia prior to evaluation in the ED. Patient was admitted for further evaluation Brain CT did not show any significant findings and CTA of the head and neck were without significant stenosis, occlusion, or aneurysm. MRI showed no acute issues but did show white matter changes. echocardiogram did show a hyperdynamic left ventricle systolic function greater than 70% and grade 1 diastolic dysfunction with moderate aortic valve sclerosis and mild . Neurology consulted for any further recommendations. patient continued to be hypertensive during her admission patient states her primary care physician had taken her off multiple medications recently due to elevated liver enzymes she was also taken off her diuretics due to hyponatremia. liver enzymes improved during her admission she denied any further double vision, dizziness, chest pain, shortness a breath or confusion. I reviewed over patient's medication list she is going to follow up with her primary care physician for continued BP monitoring and which medications she can resume after updated labs however I did start her on oral hydralazine concerned possibly that the double vision was secondary to hypertension which can put her at high risk for stroke. patient was ambulatory on own and denied any further complaints day discharge reported double vision improved in his where she will have follow-up with her primary in the next week and needs to monitor her BP at home. Patient discharged home. Status at Discharge Functional status at discharge: independent ambulation Overall status at discharge: patient is back to baseline Time Spent with Patient Time attestation: Total time spent providing and/or coordinating discharge services: Time spent: Greater than 30 minutes Exam Narrative: * GENERAL: Alert and oriented x 3. No acute distress. * EYES: PERRLA. * HEENT: Moist mucous membranes. * LUNGS: Clear to auscultation bilaterally. No accessory muscle use. * CARDIOVASCULAR: Regular rate and rhythm. * ABDOMEN: Soft, non tenderness and non-distended. No palpable masses. * EXTREMITIES: No edema. Non-tender * SKIN: No rashes or lesions. Skin warm, dry. * NEUROLOGIC: No focal neurological deficits. * PSYCHIATRIC: Appropriate mood and affect. Good judgement and insight. DS: Data Data Completed and Pending Labs on day of discharge: Labs from last 24 hours 04/06/24 04/06/24 05:37 05:34 WBC 13.5 H RBC 4.42 Hgb 13.0 Hct 38.9 MCV 88.0 MCH 29.4 MCHC 33.4 RDW 13.8 Plt Count 512 H MPV 10.8 H Immature Gran % (Auto) 0.4 Neut % (Auto) 75.7 H Lymph % (Auto) 9.5 L [place] % (Auto) 11.8 H Eos % (Auto) 1.9 Baso % (Auto) 0.7 Lymph # (Auto) 1.29 [place] # (Auto) 1.6 H Eos # (Auto) 0.3 Baso # (Auto) 0.1 Abs Immat Gran (auto) 0.05 H Absolute Neuts (auto) 10.3 H Absolute Nucleated RBC 0.000 Nucleated RBC % 0.0 Sodium 134 L Potassium 3.6 Chloride 99 Carbon Dioxide 33 H Anion Gap 2 L BUN 9 Creatinine 0.50 L Estim Creat Clear Calc 72 Estimated GFR > 60 Glucose 110 Calcium 8.3 L Magnesium 1.4 L Total Bilirubin 0.6 AST 89 H ALT 134 H Alkaline Phosphatase 165 H Total Protein 6.0 L Albumin 2.9 L Triglycerides 119 Cholesterol 136 LDL Cholesterol Direct 79 HDL Direct 20 Imaging Radiologist's impression: Radiology Results: ITS Impressions Head CT 04/04/24 14:01 IMPRESSION: No acute intracranial findings. Head/Neck CTA 04/04/24 17:44 IMPRESSION: 1. Moderate nonspecific cerebral white matter disease, which likely represents chronic small vessel ischemic disease. 2. No aneurysm or significant intracranial arterial stenosis. 3. 0% stenosis of the proximal internal carotid arteries relative to normal distal artery lumen diameters (NASCET criteria). Chest X-Ray 04/04/24 20:05 IMPRESSION: 1. Cardiomegaly. Abdomen Ultrasound 04/04/24 21:03 IMPRESSION: 1. Coarsened liver echotexture, which may be seen with steatosis. Discharge Plan Discharge Attending physician on discharge: Sg Guzman Consulting providers: Flavio Bills; Shanelle Root; Eden Garcia; Pavel Urena; Winter Bryant; Samir Moseley V.; Sergo Morton Discharging Clinician: Mitzi Holliday Anticipated Discharge Date/Time: 04/06/24 15:51 Patient Disposition: Home, Self-Care Activity: may shower, unlimited and as tolerated Diet: as tolerated Discharge Instructions: You are being discharged after evaluation for Diplopia and rule out of possible stroke which was ruled out with MRI of the brain and brain stem. You did have some hypertension and I have started you on new blood pressure medication please take as directed and monitor BP at home You also had elevated PLT levels, Leukocytosis with no infectious process and elevated liver enzymes. I recommended follow-up and close monitoring with your primary care physician and possible referral to Hematology. I understand they have recently stopped some of your medications which could have be the underlying cause. I recommend follow-up labs in 30 days How can you care for yourself at home? ? Keep track of any new symptoms or changes in your symptoms. ? Rest until you feel better. ? Be safe with medicines. Take your medicines exactly as prescribed. Call your doctor if you think you are having a problem with your medicine. ? Do not drive after taking a prescription pain medicine. ? Ensure to follow-up with primary care physician as indicated and provide updated medication list provided to you at discharge. When should you call for help? Call 911 anytime you think you may need emergency care. For example, call if: ? You passed out (lost consciousness). Call your doctor now or seek immediate medical care if: ? You have new symptoms like fever, difficulty breathing, Chest pain, vomiting, or rash. ? You have new or different pain. ? You are confused and are having trouble thinking clearly. ? Your symptoms are getting worse. Watch closely for changes in your health, and be sure to contact your doctor if: ? You do not get better as expected. Patient Instructions: Antibiotic Form, Pain Management (DC), Non-Alcoholic Fatty Liver Disease (DC), Diplopia (DC) Patient Language: Thai Stand Alone Forms: General Discharge Information Follow-up/Referrals: Bernie Brannon MD [Primary Care Provider] - 4 Weeks Discharge Medications: New hydralazine 50 mg tablet 50 mg PO BID Qty: 60 0RF Continued aspirin [Berto Low Dose Aspirin] 81 mg tablet,delayed release (DR/EC) 81 mg PO DAILY Qty: 100 3RF paroxetine HCl 20 mg tablet 20 mg PO DAILY Qty: 30 1RF diphenhydramine-acetaminophen [Acetaminophen PM] 25-500 mg tablet 1 tablet PO HS PRN (Reason: sleep) Trelegy Ellipta 100-62.5-25 mcg blister with device 1 inh inhalation Q24H Qty: 60 3RF sodium chloride 1,000 mg tablet,soluble 1,000 mg PO DAILY Qty: 30 0RF carvedilol 25 mg tablet 12.5 mg PO Q12H Qty: 200 3RF Rx Instructions: must administer with a meal/food telmisartan 40 mg tablet 40 mg PO DAILY Qty: 100 2RF Rx Instructions: TAKE 1 TABLET BY MOUTH EVERY DAY Discontinued rosuvastatin 5 mg tablet 5 mg PO DAILY Qty: 100 1RF meloxicam 15 mg tablet 15 mg PO DAILY Qty: 90 0RF pregabalin 25 mg capsule 50 mg PO TID Qty: 270 0RF quetiapine [Seroquel] 25 mg tablet 25 mg PO QHS Qty: 60 1RF Rx Instructions: 1 or 2 at bed time buspirone 5 mg tablet 5 mg PO TID Qty: 60 0RF citalopram 20 mg tablet 20 mg PO DAILY Qty: 90 0RF bupropion HCl 100 mg tablet sustained-release 12 hr 100 mg PO QHS Qty: 30 0RF alendronate 70 mg tablet 70 mg PO WEEKLY Rx Instructions: TAKE 1 TABLET BY MOUTH WEEKLY azelastine 137 mcg (0.1 %) aerosol,spray 137 mcg intranasal Q12H Qty: 30 3RF Rx Instructions: administer into each nostril triamterene-hydrochlorothiazid 37.5-25 mg tablet See Rx Instructions .ROUTE .COMPLEX Qty: 90 2RF Dose Instruction: TAKE 1 TABLET BY MOUTH EVERY MORNING Rx Instructions: TAKE 1 TABLET BY MOUTH EVERY MORNING furosemide 20 mg tablet 20 mg PO QAM PRN (Reason: edema) Qty: 30 0RF Date of admission: 04/04/24 18:40 Primary Care Provider: Bernie Brannon Admitting Provider: Sarabjit Olsen Attending physician on admission: Mitzi Holliday Condition: Stable Quality VTE Prophylaxis VTE prophylaxis: pharmacologic ordered Hospitalist MIPS Heart Failure (Exclusion) Patient has history of Heart Transplant or Left Ventricular Assistive Device?: No IF YES, STOP HERE Heart Failure (Qualifier) Patient has current or prior documentation of LVEF less than or equal to 40%, or mod/servere depressed LVSF?: No IF NO, STOP HERE
== END 2024-04-06 16:45 | disposition home or self-care (01) ==
LOC: ANHED 15:38 → ANH3MED 20:27 → ANH3MEDSUR 04-07 07:28
PROVIDERS: Nurse Practitioner Acute Care; Physician Assistant; Admitting Provider Internal Medicine; Emergency Provider Emergency Medicine; PCP Family Medicine; Visit Provider Nurse Practitioner Family
DX: H53.2 Diplopia (principal); I10 Essential (primary) hypertension; E87.8 Other disorders of electrolyte and fluid balance, not elsewhere classified; R79.89 Other specified abnormal findings of blood chemistry; J44.9 Chronic obstructive pulmonary disease, unspecified; E78.2 Mixed hyperlipidemia; F17.210 Nicotine dependence, cigarettes, uncomplicated; N39.3 Stress incontinence (female) (male); R73.03 Prediabetes; D75.1 Secondary polycythemia; I70.0 Atherosclerosis of aorta; K21.9 Gastro-esophageal reflux disease without esophagitis; M19.90 Unspecified osteoarthritis, unspecified site; M85.80 Other specified disorders of bone density and structure, unspecified site; F33.1 Major depressive disorder, recurrent, moderate; Z20.822 Contact with and (suspected) exposure to COVID-19; Z79.82 Long term (current) use of aspirin; Z79.51 Long term (current) use of inhaled steroids; Z79.899 Other long term (current) drug therapy; Z88.0 Allergy status to penicillin; Z88.8 Allergy status to other drugs, medicaments and biological substances
CPT/HCPCS: 36415; 70450; 70496; 70498; 70553; 71045; 76705; 80053; 80061; 80074; 80143; 81001; 82550; 82948; 83735; 84145; 84439; 84443; 84480; 84484; 85025; 85610; 85730; 86140; 87637; 93005; 93306; 94640; 96361; 96372; 96374; 99285; A9270; A9577; G0378; J1650; J7030; Q9967

== ENCOUNTER 2024-04-10 14:38 | Outpatient (CLI) | payer OTHER, SELFPAY ==
[2024-04-14 11:58] LABS: Acetylcholine Rec Block Ab <15 (<15)
[2024-04-14 19:39] LABS: Acetyl Rec Binding Ab <0.30 nmol/L
== END 2024-04-10 14:39 | disposition home or self-care (01) ==
PROVIDERS: PCP Family Medicine; Visit Provider Ophthalmology
DX: G70.00 Myasthenia gravis without (acute) exacerbation (principal); Z96.1 Presence of intraocular lens
CPT/HCPCS: 36415; 86041; 86042; 86043

== ENCOUNTER 2024-05-05 10:36 | Outpatient (CLI) | payer OTHER, SELFPAY ==
[2024-05-05 17:47] LABS: Basophils Absolute Auto 0.1 K/mm3 (0.0-0.1); Basophils Percent Auto 0.5 % (0.2-1.2); Eosinophils Absolute Auto 0.4 K/mm3 (0-0.3); Eosinophils Percent Auto 4.5 % (0-4.4); Hematocrit 42.5 % (37.0-47.0); Hemoglobin 13.1 g/dL (12.0-15.0); Immature Granulocyte Absolute 0.02 K/mm3 (0.00-0.031); Immature Granulocyte Percent A 0.2 % (0-0.5); Lymphocytes Absolute Auto 1.86 K/mm3 (0.9-3.2); Lymphocytes Percent Auto 20.1 % (18.3-44.2); Mean Corpuscular HGB Conc 30.8 g/dl (32-36); Mean Corpuscular Hemoglobin 28.6 pg (26-34); Mean Corpuscular Volume 92.8 fl (80-100); Mean Platelet Volume 12.1 fl (7.4-10.4); Monocytes Absolute Auto 1.1 K/mm3 (0.1-0.6); Monocytes Percent Auto 12.1 % (2.6-8.5); Neutrophils Absolute Auto 5.8 K/mm3 (1.3-6.7); Neutrophils Percent Auto 62.6 % (45.5-73.1); Platelet Count Result 271 k/mm3 (150-375); Red Blood Count 4.58 M/mm3 (4.2-5.4); Red Cell Distribution Width 17.9 % (11.5-14.5); White Blood Count 9.3 K/mm3 (4.5-10.0)
[2024-05-05 18:28] LABS: Potassium 3.6 mmol/L (3.4-5.0)
[2024-05-05 18:48] LABS: Alanine Aminotransferase 23 U/L (6-35); Albumin Level 3.2 g/dL (3.5-5.1); Alkaline Phosphatase 99 U/L (38-126); Anion Gap 6 mmol/L (4-12); Aspartate Amino Transferase 32 U/L (14-36); Bilirubin,Total 0.7 mg/dL (0.2-1.3); Blood Urea Nitrogen 9 mg/dL (7-17); Calcium 8.5 mg/dL (8.4-10.2); Carbon Dioxide 32 mmol/L (22-30); Chloride 102 mmol/L (98-107); Estimated Glomerular Filt Rate > 60; Glucose 92 mg/dL (65-110); Sodium 140 mmol/L (137-145)
--- OUTSIDE RECORDS SUMMARY | 2024-05-11 06:26 | XMS_ITS | Clinical Summary ---
Author Organization [facility] Address [address] [place] [address] Phone Care Team Providers [employer] Name Role Phone Bernie Brannon MD Primary Care Provider [phone] Allergies Active Allergy Reactions Criticality Noted Date Comments Penicillins Unknown 09/07/2021 Medications carvediloL (COREG) 25 mg tablet Take 1 Tablet (25 mg) by mouth every 12 hours with a meal/food. 180 Tablet 3 01/30/2022 9:37 AM CDT 2 Active meloxicam (MOBIC) 15 mg tablet Take 1 Tablet (15 mg) by mouth daily with food. 90 Tablet 3 10/24/2021 2:01 PM CDT 2 Active citalopram (CeleXA) 20 mg tablet Take 1 Tablet (20 mg) by mouth daily. 90 Tablet 3 10/24/2021 2:01 PM CDT 2 Active azelastine (ASTELIN) 137 mcg/actuation nasal spray INSTILL 1 SPRAY INTO EACH NOSTRIL EVERY 12 HOURS 30 mL 12/18/2021 10:39 AM CDT 2 Active zolpidem (AMBIEN) 10 mg tablet Take 1 Tablet (10 mg) by mouth daily at bedtime. 30 Tablet 3 03/13/2022 8:17 AM CENTRIFUGE OPERATOR 2 Active rosuvastatin (CRESTOR) 5 mg tablet Take 1 Tablet (5 mg) by mouth daily. 30 Tablet 2 03/13/2022 8:17 AM CENTRIFUGE OPERATOR 2 Active aspirin (ECOTRIN EC) 81 mg Tablet, Delayed Release (E.C.) Take 1 Tablet (81 mg) by mouth daily. 100 Tablet 3 03/20/202 4 Active fluticasone-ume clidinium-vilan terol (Trelegy Ellipta) 100-62.5-25 mcg Disk with Device Administer 1 inhalation every 24 hours 60 Each 3 4 Active Additional Information Patient taking differently: 1 Puff Inhalation DAILY, Patient taking PRN, Reported on 03/25/2024 telmisartan (MICARDIS) 20 mg Tablet Take 20 mg by mouth daily. Active Active Problems Problem Noted Date Diagnosed Date Hyponatremia 03/25/2024 Acute metabolic encephalopathy 03/25/2024 Peripheral vascular disease 03/25/2024 History of falling 03/25/2024 Benign hypertension 03/25/2024 Encounters Date Type Department Care Team Description 05/03/2024 External Device Data [facility]STRACTION Provider, Abstract 04/25/2024 External Device Data [facility]CTION Provider, Abstract 03/28/2024 External Device Data [facility] Provider, Abstract 03/25/2024 3:54 PM CENTRIFUGE OPERATOR - 03/26/2024 3:24 PM CENTRIFUGE OPERATOR Hospital Encounter [facility] Oncology [address] [place] [address] Melvin Rachel DO Ye, Musi, MD Bucci, Timothy, MD Shaw, Connor Scott, DO Hawatmeh, Shady, MD Hyponatremia Discharge Disposition: Home or Self Care 03/25/2024 Travel from Last 3 Months Immunizations Immunization Administration Dates Next Due (COMIRNATY)(12 YR UP) COVID- 19 VACCINE, MRNA, SPIKE PROTEIN, LNP, KATHIE(PF) 30 MCG/0.3 ML IM SUSP 04/20/2024 INFLUENZA VACCINE HIGH DOSE QUADRIVALENT 65 YR UP PF IM 02/23/2023,01/31/2022 INFLUENZA VACCINE HIGH DOSE TRIVALENT SPLIT VIRUS, (65 YR UP), 0.5ML (PF), IM 04/20/2024 Family History Medical History Relation Name Comments No Known Problems Father No Known Problems Mother Relation Name Status Comments Father Mother Social History Tobacco Use Types Packs/Day Years Used Date Smoking Tobacco: Some Days Cigarettes Alcohol Use Standard Drinks/Week Comments Yes 0 (1 standard drink = 0.6 oz pur e alcohol) Feeling Safe Answer Date Recorded Are you in a relationship wi th someone who hurts you emotionally and/or physically? No 03/25/2024 Food Insecurity Answer Date Recorded Social/Environmental Concerns No concerns Transportation Needs Answer Date Record ed Social/Environmental Concerns No concerns Housing Stability Answer Date Recorded Social/Environmental Concerns No concerns Utility Needs Answer Date Recorded Social/Environmental Concerns No concerns Comments Unknown Sex and Gender Information Value Date Recorded Sex Assigned at Not on file Legal Sex Female 3:27 PM CDT Gender Identity Not on file Sexual Orientation Not on file Last Filed Vital Signs Vital Sign Reading Time Taken Comments Blood Pressure 138/52 03/26/2024 12:00 PM CENTRIFUGE OPERATOR Pulse 61 03/26/2024 12:00 PM CENTRIFUGE OPERATOR Temperature 36.7 ??C (98 ??F) 03/26/2024 12:00 PM CENTRIFUGE OPERATOR Respiratory Rate 18 03/26/2024 12:00 PM CENTRIFUGE OPERATOR Oxygen Saturation 92% 03/26/2024 12:00 PM CENTRIFUGE OPERATOR Inhaled Oxygen Concentration - - Weight 89.8 kg (198 lb) 03/25/2024 9:21 PM CENTRIFUGE OPERATOR Height 162.6 cm (5' 4 ) 03/25/2024 9:21 PM CENTRIFUGE OPERATOR Body Mass Index 33.99 03/25/2024 9:21 PM CENTRIFUGE OPERATOR Plan of Treatment Health Maintenance Due Date Last Done Comments DTAP/TDAP/TD VACCINES (1 - Tdap) 1959 PNEUMOCOCCAL VACCINE 65+ YEA RS (1 of 2 - PCV) 1959 ZOSTER VACCINE (1 of 2) 1989 OSTEOPOROSIS SCREENING 01/05/2004 RSV VACCINE (60+ or ) (1 - 1-dose 75+ series) 2014 COVID-19 Vaccine Completed 04/20/2024 INFLUENZA VACCINE Completed 04/20/2024, , 01/31/2022 Procedures Procedure Name Priority Date/Time Associated Diagnosis Comments CT ABDOMEN PELVIS W CONTRAST Routine 03/26/2024 10:44 AM CENTRIFUGE OPERATOR URINALYSIS W/REFLEX MICROSCOPIC Stat 03/26/2024 6:25 AM CENTRIFUGE OPERATOR ELECTROLYTES, RANDOM URINE Routine 03/26/2024 6:24 AM CENTRIFUGE OPERATOR OSMOLALITY, URINE Routine 03/26/2024 6:2 4 AM CENTRIFUGE OPERATOR PATHOLOGY Routine 03/26/2024 1:06 AM CENTRIFUGE OPERATOR PERIPHERAL BLOOD SMEAR PATHOLOGY INTERP Routine 03/26/2024 1:06 AM CENTRIFUGE OPERATOR PROCALCITONIN Routine 03/26/2024 1:06 AM CENTRIFUGE OPERATOR COMPREHENSIVE METABOLIC PANEL Routine 03/26/2024 1:06 AM CENTRIFUGE OPERATOR MAGNESIUM LEVEL Routine 03/26/2024 1:06 AM CENTRIFUGE OPERATOR CBC WITH DIFFERENTIAL Routine 03/26/2024 1:[address] HEAD WO CONTRAST Stat 03/25/2024 5 :11 PM CENTRIFUGE OPERATOR XR CHEST PA OR AP 1 VW Stat 5:02 PM CENTRIFUGE OPERATOR RESPIRATORY PATHOGEN PCR PANEL Stat 03/25/2024 4:47 PM CENTRIFUGE OPERATOR POC CREATININE Stat 03/25/2024 4:17 PM CENTRIFUGE OPERATOR OSMOLALITY Routine 03/25/2024 4:11 PM CENTRIFUGE OPERATOR TSH REFLEXIVE Routine 03/25/2024 4:11 PM CENTRIFUGE OPERATOR C-REACTIVE PROTEIN Routine 03/25/2024 4: 11 PM CENTRIFUGE OPERATOR LIPASE Stat 03/25/2024 4:11 PM CENTRIFUGE OPERATOR COMPREHENSIVE METABOLIC PANEL Stat 03/25/2024 4:11 PM CENTRIFUGE OPERATOR CBC WITH DIFFERENTIAL Stat 03/25/2024 4:11 PM CENTRIFUGE OPERATOR from Last 3 Months Results * CT ABDOMEN PELVIS W CONTRAST (03/26/2024 10:44 AM CENTRIFUGE OPERATOR) Anatomical Region Laterality Modality Abdomen Computed Tomogra phy 03/26/2024 10:4 5 AM CENTRIFUGE OPERATOR Impressions 03/26/2024 10:57 AM CENTRIFUGE OPERATOR IMPRESSION: 1. ??No explanation for the patient's sepsis. 2. Small gallstones within the gallbladder lumen with no CT evidence of acute cholecystitis. 3. Nodule within the left adrenal gland that is incompletely characterized on this exam but may represent an adenoma. This could be further evaluated with adrenal protocol CT when patient able to tolerate. DICTATION LOCATION: Location 4 Narrative 03/26/2024 10:[address] ABDOMEN AND PELVIS WITH IV CONTRAST ?? DATE: 03/26/2024 10:44 AM HISTORY: Sepsis. TECHNIQUE: Axial CT images of the abdomen and pelvis were obtained following intravenous injection of IV contrast. The examination was performed with the adjustment of mA according to the patient size and/or the use of Iterative Reconstruction Technique. ?? CONTRAST: Iopamidol 61% intravenous solution Given:90 mL. COMPARISON: None. FINDINGS: LOWER CHEST: No concerning abnormality is within the visualized lungs or mediastinum. ABDOMEN/PELVIS: Liver: No concerning dominant abnormalities are identified within the liver. ?? Spleen: No concerning dominant abnormalities identified. ?? Gallbladder/biliary: Stones identified within the gallbladder lumen with no wall thickening identified. ?? Pancreas: No concerning abnormalities identified. ?? Adrenal: There is a nodule within the left adrenal gland measuring 1.8 cm that is incompletely characterized on this study. The right adrenal gland is unremarkable. Kidneys/bladder: Low-density lesions that are too small to characterize within both kidneys likely representing small cysts. No concerning dominant renal mass. No hydronephrosis or stones. ??Both ureters are unremarkable. ??The bladder is unremarkable. Small and large bowel: Diverticula are identified throughout the sigmoid colon with no evidence of acute diverticulitis. ?? Vasculature: Atherosclerotic calcifications within the aorta with no aneurysmal dilatation. Peritoneum: No free fluid or air identified. Retroperitoneum/mesentery: No pathologically enlarged lymph nodes identified. Reproductive: Cystic-appearing areas within both ovaries measuring up to 1.8 cm. MSK: Mild degenerative changes within the spine greatest at L4-5 and L5-S1. Procedure Note Rhett Love MD - 03/26/2024 CT ABDOMEN AND PELVIS WITH IV CONTRAST DATE: 03/26/2024 10:44 AM HISTORY: Sepsis. TECHNIQUE: Axial CT images of the abdomen and pelvis were obtained following intravenous injection of IV contrast. The examination was performed with the adjustment of mA according to the patient size and/or the use of Iterative Reconstruction Technique. CONTRAST: Iopamidol 61% intravenous solution Given:90 mL. COMPARISON: None. FINDINGS: LOWER CHEST: No concerning abnormality is within the visualized lungs or mediastinum. ABDOMEN/PELVIS: Liver: No concerning dominant abnormalities are identified within the liver. Spleen: No concerning dominant abnormalities identified. Gallbladder/biliary: Stones identified within the gallbladder lumen with no wall thickening identified. Pancreas: No concerning abnormalities identified. Adrenal: There is a nodule within the left adrenal gland measuring 1.8 cm that is incompletely characterized on this study. The right adrenal gland is unremarkable. Kidneys/bladder: Low-density lesions that are too small to characterize within both kidneys likely representing small cysts. No concerning dominant renal mass. No hydronephrosis or stones. Both ureters are unremarkable. The bladder is unremarkable. Small and large bowel: Diverticula are identified throughout the sigmoid colon with no evidence of acute diverticulitis. Vasculature: Atherosclerotic calcifications within the aorta with no aneurysmal dilatation. Peritoneum: No free fluid or air identified. Retroperitoneum/mesentery: No pathologically enlarged lymph nodes identified. Reproductive: Cystic-appearing areas within both ovaries measuring up to 1.8 cm. MSK: Mild degenerative changes within the spine greatest at L4-5 and L5-S1. IMPRESSION: 1. No explanation for the patient's sepsis. 2. Small gallstones within the gallbladder lumen with no CT evidence of acute cholecystitis. 3. Nodule within the left adrenal gland that is incompletely characterized on this exam but may represent an adenoma. This could be further evaluated with adrenal protocol CT when patient able to tolerate. DICTATION LOCATION: Location 4 us Carlito Mendoza MD CT ORDERABLES Final Result * (ABNORMAL) URINALYSIS WITH REFLEX MICROSCOPIC (03/26/2024 6:25 AM CENTRIFUGE OPERATOR) COLOR UA Yellow Pale to Dark Yellow 03/26/2024 8:36 AM CENTRIFUGE OPERATOR [employer] [facility] CLARITY UA Slightly Cloudy(A) Clear 03/26/2024 8:36 AM CENTRIFUGE OPERATOR [employer] [facility] SPECIFIC GRAVITY UA 1.025 1.003 - 1.035 03/26/2024 8:36 AM [facility] [employer] [facility] PH UA 6.0 5.0 - 8.0 03/26/2024 8:36 AM [facility] [employer] [facility] LEUKOCYTE ESTERASE UA Negative Negative 03/26/2024 8:36 AM [facility] [employer] [facility] NITRITE UA Negative Negative 03/26/2024 8:36 AM [facility] [employer] [facility] PROTEIN UA 2+(A) Negative 03/26/2024 8:36 AM [facility] [employer] [facility] GLUCOSE UA Negative Negative 03/26/2024 8:36 AM [facility] [employer] [facility] KETONES UA 1+(A) Negative 03/26/2024 8:36 AM [facility] [employer] [facility] UROBILINOGEN UA 4.0(A) <2.0 mg/dL 8:36 AM [facility] [employer] [facility] BILIRUBIN UA 2+(A) Negative 03/26/2024 8:36 AM [facility] [employer] [facility] BLOOD UA Negative Negative 03/26/2024 8:36 AM [facility] [employer] [facility] WBC UA 3-5(A) 0 - 2 /hpf 03/26/2024 8:36 AM [facility] [employer] [facility] RBC UA 0-2 0 - 2 /hpf 03/26/2024 8:36 AM [facility] [employer] [facility] BACTERIA UA 1+(A) Negative /hpf 03/26/2024 8:36 AM [facility] [employer] [facility] EPITHELIAL CELLS, URINE 11-25(A) 0 - 5 /hpf 03/26/2024 8:36 AM [facility] [employer] [facility] Urine URINE SPECIMEN OBTAINED BY CLEAN CATCH PROCEDURE / Unknown Collection / Unknown 03/26/2024 6:25 AM CENTRIFUGE OPERATOR 03/26/2024 8:28 AM [facility] Melvin Rachel DO URINE ORDERABLES Final Result [facility] [employer] [facility] CLIA# [id number] [address] [place] [address] * ELECTROLYTES, RANDOM URINE (03/26/2024 6:24 AM CENTRIFUGE OPERATOR) SODIUM, URINE <25 mmol/L 03/26/2024 6:57 AM CENTRIFUGE OPERATOR [facility] POTASSIUM, URINE 41.5 mmol/L 03/26/2024 6:57 AM CENTRIFUGE OPERATOR [facility] [employer] [facility] CHLORIDE, URINE <25 mmol/L 03/26/2024 6:57 AM CENTRIFUGE OPERATOR [facility] [employer] [facility] Urine URINE SPECIMEN OBTAINED BY CLEAN CATCH PROCEDURE / Unknown Collection / Unknown 03/26/2024 6:24 AM CENTRIFUGE OPERATOR 03/26/2024 6:30 AM CENTRIFUGE OPERATOR [facility] - 03/26/2024 6:57 AM CENTRIFUGE OPERATOR Reference Range Not Established Darren Lobato DO URINE ORDERABLES Final Resu lt [facility] [employer] [facility] CLIA# [id number] [address] [place] [address] * OSMOLALITY, URINE (03/26/2024 6:24 AM CENTRIFUGE OPERATOR) OSMOLALITY, URINE 618 50 - 1,200 mOsm/kg 03/26/2024 7:14 AM CENTRIFUGE OPERATOR [facility] [employer] [facility] Urine URINE SPECIMEN OBTAINED BY CLEAN CATCH PROCEDURE / Unknown Collection / Unknown 03/26/2024 6:24 AM CENTRIFUGE OPERATOR 03/26/2024 6:30 AM CENTRIFUGE OPERATOR [facility] - 03/26/2024 7:14 AM CENTRIFUGE OPERATOR Reference range: 50-1200 mOsm/kg H2O, depending on fluid intake. Darren Lobato DO URINE ORDERABLES Final Resu lt [facility] [employer] [facility] CLIA# [id number] [address] [place] [place] [address] * PERIPHERAL BLOOD SMEAR PATHOLOGY INTERP (03/26/2024 1:06 AM CENTRIFUGE OPERATOR) PERIPHERAL BLOOD SMEAR INTERP See Pathology Report to Follow 03/26/2024 1:12 PM CENTRIFUGE OPERATOR [facility] Blood Venipuncture / Unknown 03/26/2024 1:06 AM CENTRIFUGE OPERATOR 03/26/2024 1:44 AM CENTRIFUGE OPERATOR us Carlito Mendoza MD HEMATOLOGY ORDERABLES Final Re sult [facility] CLIA# [id number] [address] [place] [address] * PROCALCITONIN (03/26/2024 1:06 AM CENTRIFUGE OPERATOR) PROCALCITONIN 0.09 <=0.25 ng/mL 03/26/2024 2:53 AM CENTRIFUGE OPERATOR [facility] Blood Venipuncture / Unknown 03/26/2024 1:06 AM CENTRIFUGE OPERATOR 03/26/2024 1:43 AM CENTRIFUGE OPERATOR Narrative [facility] - 03/26/2024 2:53 AM CENTRIFUGE OPERATOR The utility of procalcitonin is limited/NOT recommended in certain populations (e.g. newborns, dialysis/ESRD, patients with recent major surgery/trauma/hyatt, liver cirrhosis, viral hepatitis, certain cancers, etc.). ??Procalcitonin levels MUST be interpreted in the context of the patient's clinical condition and CANNOT be solely relied upon for diagnosis of infection. <0.25 ng/mL: Bacterial infection unlikely, particularly lower respiratory tract infections. <0.5 ng/mL: Low risk for progression to severe sepsis/septic shock. Localized infection possible. ??Measurements done early (<6 hours) after systemic process starts may still be low. 0.5-2 ng/mL: Moderate risk for progression to severe sepsis/septic shock. ?? >2 ng/mL: High risk for progression to severe sepsis/septic shock. If antibiotics ARE administered, repeat testing is recommended every 2-3 days to help guide antibiotic cessation. ??Once a decrease of 80% or more has occurred from baseline, discontinuation of antibiotics should strongly be considered in clinically stable patients. ?? Procalcitonin is produced in the setting of systemic inflammation, particularly bacterial infections. ??It is detectable within 2-4 hours and peaks within 6-24 hours. us Darren Lobato DO CHEMISTRY ORDERABLES Final Result Performing Organization Address [facility]/State/ZIP Co de Phone Number [facility]# [id number] [address] [facility] [address] [place] [address] * PATHOLOGY (03/26/2024 1:06 AM CENTRIFUGE OPERATOR) CASE REPORT Surgical Pathology Report ? Case: [id number] ? Authorizing Provider: ??Carlito Mendoza MD ?Collected: ? 03/26/2024 01:06 AM ? Ordering Location: ? [facility] ?Received: ?03/27/2024 07:34 AM ? Oncology ? Pathologist: ? Latoya Justin MD ? Specimen: ?Peripheral Blood Smear ? 4 11:44 AM [facility] FINAL DIAGNOSIS Peripheral blood, morphologic review: - Leukocytosis with absolute neutrophilia, monocytosis, and mild granulocytic left shift - Thrombocytosis - No circulating blasts or overt features of hemolysis or dyspoiesis 4 11:44 AM [facility] NOSIS COMMENT Neutrophilia has many etiologies including acute stress (trauma/injury), exercise, phlebotomy, burn injury, infection, drugs/hormones (epinephrine, lithium, colony-stimulating factors, and beta-agonists), chronic inflammatory conditions (vasculitis, hepatitis, autoimmune disorders, et cetera), chronic smoking, metabolic, and malignancies. Monocytosis is a nonspecific finding that can be seen in collagen vascular disease (systemic lupus erythematosus, rheumatoid arthritis, myositis, etc.), gastrointestinal disorders (regional enteritis, ulcerative colitis, alcoholic liver disease, sprue), infection (viral, subacute bacterial endocarditis, syphilis, etc.), hematologic disorders (chronic or drug related neutropenia, hemolytic anemia, idiopathic thrombocytopenia purpura, lymphoma, sarcoidosis, MDS), or splenectomy, thermal injury, marathon running, or CSF therapy. Common causes of thrombocytosis include iron deficiency, recent hemorrhage, inflammation, neoplasia (carcinoma), hyposplenism, drugs, and myeloproliferative disorders. Correlation with clinical findings is suggested. If thrombocytosis, neutrophilia, and monocytosis is persistent, testing for JAK2 mutation with reflex testing to MPL and CALR may be warranted to evaluate for a myeloproliferative neoplasm. 4 11:44 AM [facility] MICROSCOPIC DESCRIPTION The slides are labeled [id number] and Vee Roe. Review of the peripheral blood smear shows findings consistent with the CBC indices and differential. Red blood cells are present in normal number and are normochromic normocytic with no significant anisopoikilocytosis and mild polychromasia. Schistocytes are not readily identified. Leukocytes are increased with absolute neutrophilia and monocytosis. There is a mild granulocytic left shift with rare circulating myelocyte. Neutrophils show normal nuclear segmentation, mild cytoplasmic hypergranularity, and vacuoles. No circulating blasts or overt features of dyspoiesis is appreciated. Lymphocytes are comprised predominantly of small, mature forms with occasional reactive forms. Platelets are increased with unremarkable morphology. 11:44 AM [facility] CLINICAL INFORMATION Elevated WBC and elevated platelets 11:44 AM [facility] COMMENT Special stain, immunohistochemical, and/or in situ hybridization results are interpreted with controls that demonstrate appropriate staining reactions. Note on use of immunohistochemistry reagents and in situ hybridization probes: These tests were developed and their performance characteristics determined by [facility], Department of Laboratory Medicine. It has not been cleared or approved by the U.S. Food and Drug Administration. The FDA has determined that such clearance or approval is not necessary. The test is used for clinical purposes. It should not be regarded as investigational or for research. This laboratory is certified to perform high complexity testing. Frozen section/operating room consultation, gross examination and dissection, and case sign out may have been performed in part or completely in the following laboratories: [facility], CLIA #[id number] [address] [place] [address] [id number] [address] [place] [address] [facility]/[place], [place] #[id number] [address] [place] [address] 11:44 AM [facility] Tissue (Peripheral Blood Smear) 03/26/2024 1:06 AM CENTRIFUGE OPERATOR 03/27/2024 7:34 AM CENTRIFUGE OPERATOR Carlito Mendoza MD PATHOLOGY/CYTOLOGY ORDERABLES Final Result [facility] CLIA# [id number] [address] [place] [address] * (ABNORMAL) CBC WITH DIFFERENTIAL (03/26/2024 1:06 AM CENTRIFUGE OPERATOR) Only the most recent of2 resultswithin the time period is included. WBC 16.5(H) 4.0 - 9.8 K/uL 03/26/2024 2:11 AM [facility] - . [facility] RBC 4.33 3.90 - 4.90 M/uL 03/26/2024 2:11 AM [facility] HEMOGLOBIN 12.4 11.8 - 14.8 g/dL 03/26/2024 2:11 AM [facility] HEMATOCRIT 38.3 35.5 - 44.0 % 03/26/2024 2:11 AM [facility] - [facility] MCV 88.5 82.0 - 99.0 fL 03/26/2024 2:11 AM [facility] - [facility] MCH 28.6 27.2 - 32.6 pg 03/26/2024 2:11 AM [facility] - . [facility] MCHC 32.4 31.5 - 35.5 g/dL 03/26/2024 2:11 AM [facility] RDW 13.3 11.5 - 14.5 % 03/26/2024 2:11 AM [facility] RDW-STDEV 43.8 37.1 - 48.7 fL 03/26/2024 2:11 AM [facility] - . [facility] PLATELETS 488(H) 140 - 350 K/uL 03/26/2024 2:11 AM [facility] MPV 11.2 9.3 - 12.4 fL 03/26/2024 2:11 AM [facility] NEUTROPHILS 74 % 03/26/2024 2:11 AM [facility] LYMPHOCYTES 8 % 03/26/2024 2:11 AM [facility] MONOCYTES 17 % 03/26/2024 2:11 AM [facility] EOSINOPHILS 1 % 03/26/2024 2:11 AM [facility] BASOPHILS 0 % 03/26/2024 2:11 AM [facility] IMMATURE GRANULOCYTES 1 % 03/26/2024 2:11 AM [facility] Comment:IG (Immature Granulo cyte) count includes Metamyelocytes, Myelocytes, and Promyelocytes NEUTROPHIL ABSOLUTE 12.11(H) 1.90 - 7.00 K/uL 03/26/2024 2:11 AM [facility] LYMPHOCYTE ABSOLUTE 1.36 0.70 - 4.50 K/uL 03/26/2024 2:11 AM [facility]. [facility] MONOCYTE ABSOLUTE 2.75(H) 0.10 - 1.30 K/uL 03/26/2024 2:11 AM [facility] EOSINOPHIL ABSOLUTE 0.09 0.00 - 0.70 K/uL 03/26/2024 2:11 AM [facility] [place] [address] [place] BASOPHILS ABSOLUTE 0.04 0.00 - 0.20 K/uL 03/26/2024 2:11 AM [facility] Centrl [facility]. [facility] IMMATURE GRANULOCYTES ABSOLUTE 0.14(H) 0.00 - 0.03 K/uL 03/26/2024 2:11 AM [facility] Blood Venipuncture / Unknown 03/26/2024 1:06 AM CENTRIFUGE OPERATOR 03/26/2024 1:44 AM CENTRIFUGE OPERATOR Darren Lobato DO HEMATOLOGY ORDERABLES Final Result Performing Organization Address City/State/[facility] Co de Phone Number [facility]# [id number] 5 [facility] [address] * (ABNORMAL) MAGNESIUM LEVEL (03/26/2024 1:06 AM CENTRIFUGE OPERATOR) MAGNESIUM 1.5(L) 1.6 - 2.4 mg/dL 03/26/2024 2:47 AM [facility] Blood Venipuncture / Unknown 03/26/2024 1:06 AM CENTRIFUGE OPERATOR 03/26/2024 1:44 AM CENTRIFUGE OPERATOR Darren Lobato DO CHEMISTRY ORDERABLES Final Result [facility] Centrl [facility]# [id number] [address] [address] * (ABNORMAL) COMPREHENSIVE METABOLIC PANEL (03/26/2024 1:06 AM CENTRIFUGE OPERATOR) Only the most recent of2 resultswithin the time period is included. SODIUM 130(L) 136 - 145 mmol/L 03/26/2024 2:47 AM [facility] [employer] [facility]. [place] POTASSIUM 3.7 3.5 - 5.0 mmol/L 03/26/2024 2:47 AM [facility] Cent[facility]. [place] CHLORIDE 90(L) 98 - 107 mmol/L 03/26/2024 2:47 AM [facility] Cent[facility]. [place] CO2 28 22 - 29 mmol/L 03/26/2024 2:47 AM [facility] Cent[facility]. [place] CALCIUM 8.5(L) 8.6 - 10.2 mg/dL 03/26/2024 2:47 AM [facility] Cent[facility]. [place] BUN 18 8 - 23 mg/dL 03/26/2024 2:47 AM [facility] Cent[facility]. [facility] CREATININE 0.70 0.51 - 0.95 mg/dL 03/26/2024 2:47 AM [facility] LABORATORY [facility]. [place] Comment:The GFR result is no t clinically significant on patients <18 or >70 years of age. GLUCOSE 95 74 - 99 mg/dL 03/26/2024 2:47 AM [facility] Cent[facility]. [place] TOTAL PROTEIN 6.0(L) 6.7 - 8.6 g/dL 03/26/2024 2:47 AM [facility] [employer] [facility]. [place] ALBUMIN 2.6(L) 3.5 - 5.2 g/dL 03/26/2024 2:47 AM [facility] Cent[facility]. [place] BILIRUBIN TOTAL 0.6 0.2 - 1.1 mg/dL 03/26/2024 2:47 AM [facility] LABORATORY [facility]. [place] ALKALINE PHOSPHATASE 260(H) 35 - 104 U/L 03/26/2024 2:47 AM [facility] AST 87(H) <33 U/L 03/26/2024 2:47 AM [facility] ALT 127(H) <34 U/L 03/26/2024 2:47 AM [facility] GFR >60 mL/min/1.7 3 sq meter 03/26/2024 2:47 AM [facility] Comment:eGFR calculated with 2020 CKD-EPI equation. Vegetarian diet, extremely high or low muscle mass, and may affect results. Cystatin C with Glomerular Filtration Rate is a suitable alternative for these patients. ANION GAP 12 8 - 16 mmol/L 03/26/2024 2:47 AM [facility] Blood Venipuncture / Unknown 03/26/2024 1:06 AM CENTRIFUGE OPERATOR 03/26/2024 1:44 AM CENTRIFUGE OPERATOR [facility] - 03/26/2024 2:47 AM CENTRIFUGE OPERATOR Samples containing indocyanine green cause interferences on Total and/or Direct Bilirubin and must not be measured. us Darren Lobato DO CHEMISTRY ORDERABLES Final Result [facility]# [id number] [address] [facility] [place] [address] * CT HEAD WO CONTRAST (03/25/2024 5:11 PM CENTRIFUGE OPERATOR) Anatomical Region Laterality Modality Head Computed Tomogra phy 03/25/2024 5:11 PM CENTRIFUGE OPERATOR Impressions 03/25/2024 5:23 PM CENTRIFUGE OPERATOR IMPRESSION: 1. ??No acute intracranial hemorrhage. 2. ??Suspected scalp hematoma at the vertex. 3. ??Moderate volume loss and chronic small vessel disease. ?? The examination was performed with the adjustment of mA according to the patient size and/or the use of Iterative Reconstruction Technique. ?? DICTATION LOCATION: Location 1 - [facility] Narrative 03/25/2024 5:23 PM CENTRIFUGE OPERATOR EXAM: CT HEAD WO CONTRAST DATE: 03/25/2024 5:11 PM CLINICAL INDICATION: Head trauma, moderate-severe, trauma TECHNIQUE: ??Multiple contiguous axial CT images were obtained from the base of the skull to the vertex without administration of intravenous contrast material. Coronal and sagittal reconstructions are performed on the axial source data. IV CONTRAST: None COMPARISON: None FINDINGS: ?? There is prominence of the ventricles and subarachnoid spaces consistent with moderate volume loss. Low-attenuation areas are identified throughout the hemispheric white matter consistent with moderate nonspecific white matter disease. No acute intracranial hemorrhage or extra-axial fluid collection is identified. The sanchez-white matter interface is grossly maintained. ??There is no midline shift or mass effect. ??The basal cisterns are patent. No displaced calvarial fracture is identified. Bilateral lens replacement surgery. Mild diffuse sinus mucosal disease. The visualized mastoid air cells are clear. Suspected scalp hematoma the vertex. Vascular calcifications are identified in the bilateral distal carotid arteries. INCIDENTAL FINDINGS: ??None. Procedure Note Bret Banks MD - 03/25/2024 EXAM: CT HEAD WO CONTRAST DATE: 03/25/2024 5:11 PM CLINICAL INDICATION: Head trauma, moderate-severe, trauma TECHNIQUE: Multiple contiguous axial CT images were obtained from the base of the skull to the vertex without administration of intravenous contrast material. Coronal and sagittal reconstructions are performed on the axial source data. IV CONTRAST: None COMPARISON: None FINDINGS: There is prominence of the ventricles and subarachnoid spaces consistent with moderate volume loss. Low-attenuation areas are identified throughout the hemispheric white matter consistent with moderate nonspecific white matter disease. No acute intracranial hemorrhage or extra-axial fluid collection is identified. The sanchez-white matter interface is grossly maintained. There is no midline shift or mass effect. The basal cisterns are patent. No displaced calvarial fracture is identified. Bilateral lens replacement surgery. Mild diffuse sinus mucosal disease. The visualized mastoid air cells are clear. Suspected scalp hematoma the vertex. Vascular calcifications are identified in the bilateral distal carotid arteries. INCIDENTAL FINDINGS: None. IMPRESSION: 1. No acute intracranial hemorrhage. 2. Suspected scalp hematoma at the vertex. 3. Moderate volume loss and chronic small vessel disease. The examination was performed with the adjustment of mA according to the patient size and/or the use of Iterative Reconstruction Technique. DICTATION LOCATION: Location 1 - [facility] DO CT ORDERABLES Final Result * XR CHEST PA OR AP 1 VW (03/25/2024 5:02 PM CENTRIFUGE OPERATOR) Anatomical Region Laterality Modality Chest Computed Radiogr aphy 03/25/2024 5:02 PM CENTRIFUGE OPERATOR Impressions 03/25/2024 5:13 PM CENTRIFUGE OPERATOR IMPRESSION: ?? 1. No focal lung consolidation. DICTATION LOCATION: Location [address] [place] [address] Narrative 03/25/2024 5:13 PM CENTRIFUGE OPERATOR EXAMINATION: X-RAY CHEST PA OR AP 1 VIEW DATE: 03/25/2024 5:02 PM HISTORY: Shortness of breath. COMPARISON: None. FINDINGS: There is old granulomatous disease in the right lower lobe. There is calcific right rotator cuff tendinitis. No focal lung consolidation, pneumothorax or pleural effusion. The cardiomediastinal silhouette is normal. Procedure Note Damian Torres MD - 03/25/2024 EXAMINATION: X-RAY CHEST PA OR AP 1 VIEW DATE: 03/25/2024 5:02 PM HISTORY: Shortness of breath. COMPARISON: None. FINDINGS: There is old granulomatous disease in the right lower lobe. There is calcific right rotator cuff tendinitis. No focal lung consolidation, pneumothorax or pleural effusion. The cardiomediastinal silhouette is normal. IMPRESSION: 1. No focal lung consolidation. DICTATION LOCATION: [address] [facility] DO DIAGNOSTIC IMAGING ORDERABLES Fi nal Result * RESPIRATORY PATHOGEN PCR PANEL (03/25/2024 4:47 PM CENTRIFUGE OPERATOR) Pathologist [facility] Respiratory Pathogen PCR Panel NOT DETECTED No respiratory pathogen nucleic acids detected. 03/25/2024 6:00 PM CENTRIFUGE OPERATOR [facility] Centrl [facility] COVID-19 PCR NOT DETECTED Not Detected 03/25/2024 6:00 PM CENTRIFUGE OPERATOR [facility] Cent[facility] Upper Respiratory ENTIRE NASOPHARYNX / Unknown Collection / Unknown 03/25/2024 4:47 PM CENTRIFUGE OPERATOR 03/25/2024 4:49 PM CENTRIFUGE OPERATOR Narrative [facility] - 03/25/2024 6:00 PM CENTRIFUGE OPERATOR The Film Array Respiratory Panel (RP2.1) is a multiplex nucleic acid detection test for 22 targets. Viruses: Adenovirus Coronavirus HKU1, NL63, 229E, and OC43 COVID-19/Severe Acute Respiratory Syndrome Coronavirus 2 Influenza A with the following subtypes: H1, H1-2009, and H3 Influenza B Human Metapneumovirus Parainfluenza virus 1, 2, 3, and 4 Respiratory Syncytial virus (RSV) Rhinovirus/Enterovirus (cannot differentiate due to genetic similarities) Bacteria: Bordetella pertussis Bordetella parapertussis Chlamydophila pneumoniae Mycoplasma pneumoniae Melvin Rachel DO MICROBIOLOGY - GENERAL ORDERABLE S Final Result Performing Organization Address City/[facility]/ZIP Co de Phone Number [id number] [address] [place] [address] * POC CREATININE (03/25/2024 4:17 PM CENTRIFUGE OPERATOR) CREATININE POC 0.90 0.50 - 1.00 mg/dL 03/25/2024 4:17 PM CENTRIFUGE OPERATOR [facility] LABORATORY [facility] Comment:The GFR result is no t clinically significant on patients <18 or >70 years of age. GFR POC >60 mL/min/1.7 3 sq meter 03/25/2024 4:17 PM CENTRIFUGE OPERATOR [facility] Comment:eGFR calculated with 2020 CKD-EPI equation. Vegetarian diet, extremely high or low muscle mass, and may affect results. Cystatin C with Glomerular Filtration Rate is a suitable alternative for these patients. Blood, whole 03/25/2024 4:17 PM CENTRIFUGE OPERATOR 03/25/2024 4:21 PM CENTRIFUGE OPERATOR Melvin Rachel DO POINT OF CARE TESTING Final Resu lt Performing Organization Address [facility]/ZIP Co de Phone Number [facility] CLRI# [id number] [address] [place] [address] * TSH REFLEXIVE (03/25/2024 4:11 PM CENTRIFUGE OPERATOR) Pathologist [facility] TSH 3.28 0.27 - 4.20 uIU/mL 03/25/2024 9:50 PM CENTRIFUGE OPERATOR [facility] Blood Venipuncture / Unknown 03/25/2024 4:11 PM CENTRIFUGE OPERATOR 03/25/2024 4:14 PM CENTRIFUGE OPERATOR us Darren Lobato DO CHEMISTRY ORDERABLES Final Result [facility] CL[facility]# [id number] [address] [place] [address] * (ABNORMAL) C-REACTIVE PROTEIN (03/25/2024 4:11 PM CENTRIFUGE OPERATOR) [facility] CRP 203.0(H) <5.0 mg/L 03/25/2024 9:50 PM CENTRIFUGE OPERATOR [facility] Blood Venipuncture / Unknown 03/25/2024 4:11 PM CENTRIFUGE OPERATOR 03/25/2024 4:14 PM CENTRIFUGE OPERATOR us Darren Lobato DO CHEMISTRY ORDERABLES Final Result Performing Organization Address [facility] Co de Phone Number [facility] CL[facility]# [id number] [address] [address] * OSMOLALITY (03/25/2024 4:11 PM CENTRIFUGE OPERATOR) Pathologist [facility] OSMOLALITY 275 275 - 300 mOsm/kg 03/25/2024 10:40 PM CENTRIFUGE OPERATOR [facility] Blood Venipuncture / Unknown 03/25/2024 4:11 PM CENTRIFUGE OPERATOR 03/25/2024 4:14 PM CENTRIFUGE OPERATOR us Darren Lobato DO CHEMISTRY ORDERABLES Final Result Performing Organization Address City/[facility]/ZIP Co de Phone Number [facility] CLIA# [id number] [address] [address] * LIPASE (03/25/2024 4:11 PM CENTRIFUGE OPERATOR) LIPASE 36 13 - 60 U/L 03/25/2024 5:15 PM CENTRIFUGE OPERATOR [facility] LABORATORY [facility] Blood Venipuncture / Unknown 03/25/2024 4:11 PM CENTRIFUGE OPERATOR 03/25/2024 4:14 PM CENTRIFUGE OPERATOR us Melvin Rachel DO CHEMISTRY ORDERABLES Final Resul t [facility] LABORATORY [facility] CLIA# [id number] [address] [address] from Last 3 Months Insurance RX SMALL PLANS (INTERNAL) [facility] [employer] RX [employer] S[employer] Medicare Part D [facility] Advance Directives For more information, please contact: [phone] * Full Code (Latest Code Status on File) Date Activated Date Inactivated Comments 03/25/2024 9:25 PM 03/26/2024 5:25 PM Care Teams Biopharmaceutical Rep Relationship Specialty Start Date End Date Bernie Brannon MD [address] [facility] [address] [place] [address] PCP - General Family Practice 03/25/24
--- OUTSIDE RECORDS SUMMARY | 2024-05-11 06:26 | XMS_ITS | Continuity of Care Document ---
Author Organization [facility] Address [address] [place] [address] Phone Care Team Providers Care Cannon Fire Direction Specialist Name Role Phone Erich Celestin Unavailable Unavailable Procedures Procedure Date Office/outpatient Visit, Est Office/outpatient Visit, Est Office/outpatient Visit, Est No Script Post-op Follow-up Visit Post-op Follow-up Visit Post-op Follow-up Visit Remove Cataract, Insert Lens PreOp Assessment Performed Presbyopia Correcting IOL Post-op Follow-up Visit IOLMaster-Professional No Script Post-op Follow-up Visit Remove Cataract, Insert Lens PreOp Assessment Performed Presbyopia Correcting IOL Office/outpatient Visit, Est IOLMaster Script Printed/Phoned Pt Requ Or Pharm N ot Availab Eye Exam & Treatment Advance Directives Directive Yes / No Effective Date File Name No Information Encounters Encounter Description Practice Location Reason(s) For Visit Diagnoses Date Provider Providers Copied on Encounter Office/outpat ient Visit, Est [facility], [address], [place], [place], [address], [place] tel:[phone] [facility] No Information 3-201 0 Krishnasamy Erich. [address] [facility] [address], [place], [address], [place]. tel:[phone] Office/outpat ient Visit, Est [facility], [address], [place], [place], [address], [place] tel:[phone] [facility] No Information 5-201 0 Krishnasamy Erich. [address] [facility] [address], [place], [place], [facility], [place]. tel:[phone] Office/outpat ient Visit, Est [facility], [address] [place] [address] [address], [place], [place], [address], [place] tel:[phone] [facility] No Information 5-200 9 Krishnasamy Erich. [address] [facility] [address], [place], [place], [facility], [place]. tel:[phone] [facility], [address], [place], [place], [address], [place] tel:[phone] [facility] No Information Jul-2 9-200 9 Krishnasamy Erich. [address] [facility] [address], [place], [address], [place]. tel:[phone] [facility], [address], [place], [place], [address], [place] tel:[phone] [facility] No Information Apr-0 8-200 9 Krishnasamy Erich. [address] [facility] [address], [place], [address], [place]. tel:[phone] [facility], [address], [place], [place], [address], [place] tel:[phone] [facility] No Information 9 Krishnasamy Erich. [address], [place], [address], [place]. tel:[phone] [facility], [address], [place], [place], [address], [place] tel:[phone] [facility] No Information 6 9 Krishnasamy Erich. [address], [place], [address], [place]. tel:[phone] [facility], [address], [place], [place], [address], [place] tel:[phone] [facility] No Information 1 9 Krishnasamy Erich. [address], [place], [address], [place]. tel:[phone] Referring Provider: Erich de leon, [address], [place], [address]. tel:[phone] [facility], [address], [place], [place], [address], [place] tel:[phone] [facility] No Information 9 Krishnasamy Erich. [address], [place], [address], [place]. tel:[phone] [facility], [address], [place], [place], [address], [place] tel:[phone] [facility] No Information 9 Krishnasamy Erich. [address], [place], [address], [place]. tel:[phone] Office/outpat ient Visit, Est [facility], [address], [place], [place], [address], [place] tel:[phone] [facility] No Information 9 Sabi Jung. [address] [facility] [address], [place], [facility], . tel:[phone] Referring Provider: Erich de leon, [address] [facility] [address], [place], [place], [facility]. tel:[phone] [facility], [address], [place], [place], [address], tel:[phone] [facility] No Information Caro Gasca. [facility] , [address], [place], [place], [facility], . tel:[phone] Family History Family Member Type Diagnosis Age At Onset No Information Payers Payer name Insurance type Covered republican ID Authoriza tion(s) Medicare [place] [id number] BCBS [place] Commercial BL [id number] Social History Type Description Quantity Date Captured Comments Sex Female Smoking Status No Information Chief Complaint And Reason For Visit No Information Reason For Referral Reason For Referral No Information History Of Present Illness Encounter Date Complaint History Of Prese nt Illness No Information Functional Status Date Functional Assessmen t No Information Instructions Date Instruction Additional Infor mation No Information Assessments Type Assessment Date No Information Patient Care Teams Name Effective Dates (start - stop) Status Members No Information
--- OUTSIDE RECORDS SUMMARY | 2024-05-11 06:26 | XMS_ITS | Encounter Summary ---
Author Organization [employer] Address [address] [place] [address] Care Team Providers Care Wafer Slicer Name Role Phone Bernie Brannon MD Primary Care Provider [phone] Encounter Details Date Type Department Care Team (Late st Contact Info) Description 05/03/2024 External Device Data [place] ABSTRACTION Provider, Abstract NO ADDRESS ON FILE Social History Tobacco Use Types Packs/Day Years [...] on file Sexual Orientation Not on file documented as of this encounter Plan of Treatment Not on file documented as of this encounter Visit Diagnoses Not on filedocumented in this encounter Additional Health Concerns Assessment Noted Time PHQ-9 Depression Total Score: 2 03/25/20 24 9:23 PM SPEECH PATHOLOGIST ASSISTANT documented as of this encounter Care Teams Wafer Slicer Relationship Specialty Start Date End Date Bernie Brannon MD [address] [place] [address] PCP - General Family Practice 03/25/24 documented as of this encounter
--- OUTSIDE RECORDS SUMMARY | 2024-05-11 06:26 | XMS_ITS | CONTINUITY OF CARE DOCUMENT ---
Author Name rigoberto kieshakavita Address Unknown Organization [facility] Address [address] [place] [address] [address] [place] [address] Phone [phone] Care Team Providers Care Manager Of Radiology Name Role Phone Abilio KASPER, Phong Unavailable DEANNA KASPER, SAM Unavailable [phone] DEANNA KASPER, SAM Unavailable PROBLEMS Condition Status Date Provider Notes Peripheral neuropathy active Phong Ledezma hx of DVT active Phong Knox MD Smoker active Phong Knox MD Leg edema, bilateral active Phong Knox MD PVD active Phong Knox MD Cardiology examination active Phong Knox MD ENCOUNTERS Date Type Provider Location Encounter Diag nosis - In-person encounter Office Visit Phong Knox MD [facility] - In-person encounter Office Visit Phong Knox MD [facility] Cardiology examinationPVDLeg edema, bilateralSmokerhx of DVTPeripheral neuropathy VITAL SIGNS Date Observation Value Provider Body Mass Index (Ratio) 30.55 kg/m2 Sara Knox MD blood pressure, cuff size large Ke rri Alize blood pressure, diastolic 80 mm[Hg] Ke rri Alize blood pressure, systolic 132 mm[Hg] Eduardo Greenfieldueneradhaelder oxygen saturation, oximetry 94 % Simi Grahamelder respiratory rate E&M 16 /min Simi steinernfelder pulse rate 64 /min Simi Be lder weight E&M 178 [lb_av] Simi Be lder height E&M 64 [in_i] Simi Be lder Body Mass Index (Ratio) 31.24 kg/m2 Sara Knox MD blood pressure, cuff size large Ke rri Gruenenfelder blood pressure, diastolic 80 mm[Hg] Ke rri Gruenenfelder blood pressure, systolic 144 mm[Hg] Eduardo Covingtonneradhaelder oxygen saturation, oximetry 98 % Simi Grahamelder respiratory rate E&M 14 /min Simi steinernfelder pulse rate 66 /min Simi Be lder weight E&M 182 [lb_av] Simi Be lder height E&M 64 [in_i] Simi Be er ALLERGIES Allergy Name Onset Date Reaction Criticality Status PCN High Criticality active HISTORY OF MEDICATION USE Medication Status Instructions Dates Provider Indications Com ments aspirin 81 mg capsule active 1 by mouth once a day Rosita Ventimiglia CARPET SEWING MACHINE OPERATOR Ambien 10 mg tablet active 1 by mouth every night Rosita Ventimiglia CARPET SEWING MACHINE OPERATOR triamterene-hyd rochlorothiazid 37.5-25 mg tablet active Rosita Ventimiglia CARPET SEWING MACHINE OPERATOR Crestor 5 mg tablet active 1 tablet Rosita Ventimiglia CARPET SEWING MACHINE OPERATOR lisinopril 10 mg tablet active 1 tablet by mouth Rosita Ventimiglia CARPET SEWING MACHINE OPERATOR Trelegy Ellipta 100-62.5-25 mcg blister with device active Phong Knox MD gabapentin 300 mg capsule completed - 9 Rosita Ventimiglia [facility] carvedilol 25 mg tablet active 1 tablet by mouth twice a day Phong Knox MD alendronate 70 mg tablet active Take 1 tablet by mouth once a week Phong Knox MD SOCIAL HISTORY Date Observation Value Provider drug use no Rosita Ventimig dhiraj [facility] alcohol use no Rosita Ventimig dhiraj [facility] social history E&M S moking History: P atient currently smokes every day. P atient has been counseled to quit. Phong Knox MD social history reviewed E&M revi ewed - no changes required Phong Knox MD smoking/tobacco cess ation, patient education and counseling yes Simi Herrmann number of years as a smoker 60 a Simi Herrmann smoking history, tot al pack/day 1/4 ppd Simi Herrmann cigarette use yes Simi brizuela smoking status Current every da y smoker Simi Herrmann number of grandchildren Phong Knox MD U bobbi Knox MD alcohol use, type wine Phong messer MD alcohol use, average drinks per day 1 /d Phong Knox MD alcohol use yes Phong Knox MD social history E&M S moking History: P atient currently smokes every day. P atient has been counseled to quit. Phong Knox MD smoking/tobacco cess ation, patient education and counseling yes Phong Knox MD social history reviewed E&M revi ewed - no changes required Phong Knox MD number of years as a smoker 60 a Simi Herrmann smoking history, tot al pack/day 1/4 ppd Simi Herrmann cigarette use yes Simi Graham elder smoking status Current every da y smoker Simi Herrmann INSURANCE PROVIDERS Payer name Policy type / Coverage type Suresh red alliance party ID DENY HMO Other [id number] ADVANCE DIRECTIVES Name Date DISCUSSED - NO DECISION MADE TREATMENT PLAN Date Name Performer [id number],S,cessation enc ouraged Rosita Escalante [facility] [id number],S,c hronic and unchanged. Managed by her primary team Rosita Escalante [facility] [id number],S,A BI showed severe disease of LLE and moderate of the RLE. patient however, is fairly asymptomatic and without issue at this time. Given that she will continue aspirin and statin. We will do f/u HEIDY yearly or sooner should symptoms occur. Rosita Escalante [facility] [id number],S, T he Patient was reencouraged to stop smoking. Phong Knox MD [id number],S, I recommended she stop her gabapentin since she says it doesn't help much and it could be contributing to her LE swelling. Phong Knox MD [id number],W, H er ABIs suggested severe RLE arterial disease, but she's capable of walking for a while and completing most activiites that she wants to do. We'll continue to monitor. She will need to be put on a statin. Phong Knox MD Cardiology:cessation encouraged Rosita Escalante [facility] Cardiology:chronic a nd unchanged. Managed by her primary team Rosita Escalante [facility] Cardiology:HEIDY showe d severe disease of LLE and moderate of the RLE. patient however, is fairly asymptomatic and without issue at this time. Given that she will continue aspirin and statin. We will do f/u HEIDY yearly or sooner should symptoms occur. Rosita Escalante [facility] Cardiology: T he Patient was reencouraged to stop smoking. Phong Knox MD Cardiology: I recommended she stop her gabapentin since she says it doesn't help much and it could be contributing to her LE swelling. Phong Knox MD Cardiology: H er ABIs suggested severe RLE arterial disease, but she's capable of walking for a while and completing most activiites that she wants to do. We'll continue to monitor. She will need to be put on a statin. Phong Knox MD Date Name Arterial Duplex Bi-L ower EX Venous Doppler Bilat eral LE - Reflux LIPOPROTEIN (a) CRP, high sensitivit y COMPREHENSIVE METABO LIC PANEL, W/EGFR LIPID PANEL HISTORY OF PROCEDURES Procedure Date Procedure Name Provider Procedure Notes S tatus EKG Phong Knox MD completed
== END 2024-05-05 10:37 | disposition home or self-care (01) ==
PROVIDERS: PCP Family Medicine; Visit Provider Physician Assistant
DX: R79.89 Other specified abnormal findings of blood chemistry (principal); J43.9 Emphysema, unspecified
CPT/HCPCS: 36415; 80053; 85025

== ENCOUNTER 2024-06-27 08:55 | Outpatient (CLI) | payer OTHER, SELFPAY ==
--- OUTSIDE RECORDS SUMMARY | 2024-06-27 09:31 | XMS_ITS | Clinical Summary ---
Author Organization [facility] Address [address] [place] [address] Phone Care Team Providers Care Mental Telepathist Name Role Phone Bernie Brannon MD Primary Care Provider [phone] Allergies Active Allergy Reactions Criticality Noted Date [...] bedtime. 30 Tablet 3 03/13/2022 8:17 AM COPPER PLATER 2 Active rosuvastatin (CRESTOR) 5 mg tablet Take 1 Tablet (5 mg) by mouth daily. 30 Tablet 2 03/13/2022 8:17 AM COPPER PLATER 2 Active aspirin (ECOTRIN EC) 81 mg [...] Encounters Date Type Department Care Team Description 06/21/2024 External Device Data ST[facility] ABSTRACTION Provider, Abstract 05/23/2024 External Device Data [facility] ABSTRACTION Provider, Abstract 05/16/2024 External Device Data [facility] ABSTRACTION Provider, Abstract 05/03/2024 External Device Data [facility] ABSTRACTION Provider, Abstract 04/25/2024 External Device Data [facility] ABSTRACTION Provider, Abstract from Last 3 Months Immunizations Immunization Administration [...] Comments Blood Pressure 138/52 03/26/2024 12:00 PM COPPER PLATER Pulse 61 03/26/2024 12:00 PM COPPER PLATER Temperature 36.7 C (98 F) 03/26/2024 12:00 PM COPPER PLATER Respiratory Rate 18 03/26/2024 12:00 PM COPPER PLATER Oxygen Saturation 92% 03/26/2024 12:00 PM COPPER PLATER Inhaled Oxygen Concentration - - Weight 89.8 kg (198 lb) 03/25/2024 9:21 PM COPPER PLATER Height 162.6 cm (5' 4 ) 03/25/2024 9:21 PM COPPER PLATER Body Mass Index 33.99 03/25/2024 9:21 PM COPPER PLATER Plan of Treatment Health Maintenance Due Date Last Done Comments DTAP/TDAP/TD VACCINES (1 - Tdap) 1959 PNEUMOCOCCAL VACCINE 50+ YEA RS (1 of 2 - PCV) 1958 ZOSTER VACCINE (1 of 2) 1989 OSTEOPOROSIS SCREENING 01/05/2004 RSV VACCINE (60+ or ) (1 - 1-dose 75+ series) 2014 COVID-19 Vaccine (2 - season) 10/18/202405/2024 INFLUENZA VACCINE Completed 04/20/2024, , 01/31/2022 Insurance RX SMALL PLANS (INTERNAL) [facility] [employer] Medicare Part D [facility] MCR Advance Directives For more information, please contact: [phone] * Full Code (Latest Code Status on File) Date Activated Date Inactivated Comments 03/25/2024 9:25 PM 03/26/2024 5:25 PM Care Teams Mental Telepathist Relationship Specialty Start Date End Date Bernie Brannon MD [address] [place] [address] PCP - General Family Practice 03/25/24
--- OUTSIDE RECORDS SUMMARY | 2024-06-27 09:31 | XMS_ITS | Continuity of Care Document ---
Author Organization [employer] [facility] Address [address] [place] [address] Phone Care Team Providers Care Artistic Director Name Role Phone Erich Celestin Unavailable Unavailable [...] Copied on Encounter [facility]pat [facility] [address], [place], [place], [id number], [place] tel:[phone] [facility] No Information 3-201 0 Krishnasamy Erich. [address] [facility] [address], [place], [address], [place]. tel:[phone] Office/outpat ient Visit, Est [facility], [address], [place], [place], [address], [place] tel:[phone] [facility] No Information 5-201 0 Krishnasamy Erich. [address] [facility] [address], [place], [place], [facility], [place]. tel:[phone] Office/outpat ient Visit, Est [facility], [address] [place] [address] [address], [place], [place], [id number], [place] tel:[phone] [facility] No Information 5-200 9 Krishnasamy Erich. [address] [facility] [address], [place], [place], [facility], [place]. tel:[phone] [facility], [address], [place], [place], [address], [place] tel:[phone] [facility] No Information Jul-2 9-200 9 Krishnasamy Erich. [address] [facility] [address], [place], [address], [place]. tel:[phone] [facility] Eye [facility], [address], [place], [place], [address], [place] tel:[phone] [facility] No Information Apr-0 8-200 9 Krishnasamy Erich. [address] [facility] [address], [place], [address], [place]. tel:[phone] [facility], [address], [place], [place], [address], [place] tel:[phone] [facility] No Information 9 Krishnasamy Erich. [address], [place], [address], [place]. tel:[phone] [facility] Eye [facility], [address], [place], [place], [address], [place] tel:[phone] [facility] No Information 6 9 Krishnasamy Erich. [address], [place], [address], [place]. tel:[phone] [facility] Eye [facility], [address], [place], [place], [address], [place] tel:[phone] [facility] No Information 1 9 Krishnasamy Erich. [address], [place], [address], [place]. tel:[phone] Referring Provider: Erich de leon, [address], [place], [address]. tel:[phone] [facility] Eye [facility], [address], [place], [place], [address], [place] tel:[phone] [facility] No Information 9 Krishnasamy Erich. [address] [facility] [address], [place], [address], [place]. tel:[phone] [facility], [address], [place], [place], [address], [place] tel:[phone] [facility] No Information 9 Krishnasamy Erich. [address], [place], [address], [place]. tel:[phone] Office/outpat ient Visit, Est [facility] Eye [facility], [address], [place], [place], [address], [place] tel:[phone] [facility] No Information 9 Sabi Jung. [address] [facility] [address], [place], [facility], . tel:[phone] Referring Provider: Erich d eleon, [address] [facility] [address], [place], [place], [facility]. tel:[phone] [facility], [address], [place], [place], [address], tel:[phone] [facility] No Information Caro Gasca. [facility] , [address], [place], [place], [facility], . tel:[phone] Family History Family Member Type Diagnosis Age At Onset No Information Payers Payer name Insurance type Covered constitution party ID Authoriza tion(s) [place] [id number] [place] [id number] Social History Type Description Quantity Date Captured [...]
--- OUTSIDE RECORDS SUMMARY | 2024-06-27 09:31 | XMS_ITS | Clinical Summary ---
Author Organization [facility] Address [address] [place] [address] Care Team Providers Care Roof Cement And Paint Maker Helper Name Role Phone Bernie Brannon MD Primary Care Provider Allergies Active Allergy Reactions Criticality Noted Date Comments Penicillins Hives,Unknown Medium 09/07/2021 Medications carvedilol (COREG) 25 mg tablet 9 Active TRIAMTERENE-HYD ROCHLOROTHIAZID E 37.5-25 mg per tablet 9 Active zolpidem (AMBIEN) 10 mg tablet 9 Active Lactobac no.41/Bifidobac t no.7 (PROBIOTIC-10 ORAL) Take by mouth Active multivit-minera h-qohc-kcvtrj tablet Take by mouth Active aspirin 81 mg enteric coated tablet Take 1 tablet (81 mg total) by mouth daily Active citalopram (CeleXA) 20 mg tablet 0 Active alendronate (FOSAMAX) 70 mg tablet 2 Active meclizine (ANTIVERT) 25 mg tablet TAKE 1 TABLET BY MOUTH TWICE A DAY NEEDED FOR DIZZINESS 3 Active telmisartan (MICARDIS) 40 mg tablet Take 1 tablet (40 mg total) by mouth daily 3 Active rosuvastatin (CRESTOR) 5 mg tablet Take 1 tablet (5 mg total) by mouth daily 3 Active azelastine (ASTELIN) 137 mcg (0.1 %) nasal spray ADMINISTER 1 SPRAY INTO EACH NOSTRIL EVERY 12 HOURS 3 Active fluticasone-ume clidin-vilanter (TRELEGY ELLIPTA) 100-62.5-25 mcg inhaler Trelegy Ellipta 100-62.5-25 mcg blister with device 0 Active fluticasone propionate (FLONASE) 50 mcg/actuation nasal spray INSTILL 1 SPRAY INTO EACH NOSTRIL TWICE DAILY 2 Active Active Problems Problem Noted Date Diagnosed Date Atherosclerosis of galena ar teries of extremities with intermittent claudication, bilateral legs 09/08/2022 Atherosclerosis of galena artery of left lower e xtremity 07/22/2018 Encounter for surgical after care following surgery on the circulatory system 07/09/2016 Occlusion of left femoral artery 06/18/2016 Arteriosclerosis of artery of extremity 06/08/19 17 Atherosclerosis of artery 06/08/2016 Closed fracture of proximal end of humerus 09/26 Family History Medical History Relation Name Comments Heart disease Father Family history of cardiac disorder - (Added by TW Conv) Hypertension Father Family history of hypertension - (Added by TW Conv) Arthritis Mother Family history of arthritis - (Added by TW Conv) Heart disease Mother Family history of cardiac disorder - (Added by TW Conv) Hypertension Mother Family history of hypertension - (Added by TW Conv) Relation Name Status Comments Father Mother Social History Tobacco Use Types Packs/Day Years Used Date Smoking Tobacco: Some Days Cigarettes Smokeless Tobacco: Never Alcohol Use Standard Drinks/Week Comments Yes 0 (1 standard drink = 0.6 oz pur e alcohol) Comments No Sex and Gender Information Value Date Recorded Sex Assigned at Not on file 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 Gender Identity Female 08/09/2022 2:41 PM CDT Sexual Orientation Straight 08/09/2022 2: 41 PM CDT Obstetrics History Last Filed Vital Signs Vital Sign Reading Time Taken Comments Blood Pressure 169/91 09/14/2023 8:02 AM CDT Pulse 57 09/14/2023 8:02 AM CDT Temperature 36.7 C (98.1 F) 09/14/2023 8:02 AM CDT Respiratory Rate - - Oxygen Saturation 95% 09/14/2023 8:02 AM CDT Inhaled Oxygen Concentration - - Weight 85.3 kg (188 lb) 09/14/2023 8:02 AM CDT Height 165.1 cm (5' 5 ) 09/14/2023 8:02 AM CDT Body Mass Index 31.28 09/14/2023 8:02 AM CDT Plan of Treatment Health Maintenance Due Date Last Done Comments Depression Screening 1939 Fall Risk Assessment 1940 Osteoporosis Screening-Bone Density Scan 1939 DTaP/Tdap/Td Vaccine (1 - Tdap) 1950 Hepatitis B Screening 1957 Pneumococcal vaccine 65+ (1 of 2 - PCV) 1958 Well Visit 65+ 01/05/2004 Zoster Vaccine (2 of 3) 07/17/2013 05/22/2013 Influenza Vaccine (#1) 2023 8, 01/18/2016, 01/19/2013 Insurance [facility] Care Teams Roof Cement And Paint Maker Helper Relationship Specialty Start Date End Date Bernie Brannon MD [address] [facility] [address] [place] [address] PCP - General 09/07/17
--- OUTSIDE RECORDS SUMMARY | 2024-06-27 09:31 | XMS_ITS | Referral Summary ---
Author Organization [facility] Address [address] [place] [address] Care Team Providers Care Juvenile Court Judge Name Role Phone Bernie Brannon MD Primary Care Provider Allergies Active Allergy Reactions Criticality Noted Date Comments Penicillins Hives,Unknown Medium 09/07/2021 Medications carvedilol (COREG) 25 mg tablet 9 Active TRIAMTERENE-HYD ROCHLOROTHIAZID E 37.5-25 mg per tablet 9 Active zolpidem (AMBIEN) 10 mg tablet 9 Active Lactobac no.41/Bifidobac t no.7 (PROBIOTIC-10 ORAL) Take by mouth Active multivit-minera [id number]-vttdch tablet Take by mouth Active aspirin 81 [...] Problem Noted Date Diagnosed Date Atherosclerosis of [place] ar teries of extremities with intermittent claudication, bilateral legs 09/08/2022 Atherosclerosis of [place] artery of left lower e xtremity 07/22/2018 Encounter for surgical after care following surgery on the circulatory system 07/09/2016 Occlusion of left femoral artery 06/18/2016 Arteriosclerosis of artery of extremity 06/08/19 17 Atherosclerosis of artery 06/08/2016 Closed fracture of proximal end of humerus 09/26 Social History Tobacco Use Types Packs/Day Years Used Date Smoking Tobacco: Some Days Cigarettes Smokeless Tobacco: Never Alcohol Use Standard Drinks/Week Comments Yes 0 (1 standard drink = 0.6 oz pur e alcohol) Comments No Sex and Gender Information Value Date Recorded Sex Assigned at Not on file 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
--- OUTSIDE RECORDS SUMMARY | 2024-06-27 09:31 | XMS_ITS | CONTINUITY OF CARE DOCUMENT ---
Author Name rigoberto kieshakavita Address Unknown Organization [facility] Address [address] [facility] [address] [place] [address] Phone [phone] Care Team Providers Care Rotary Cutter Name Role Phone Abilio AKSPER, Phong Unavailable DEANNA KASPER, SAM Unavailable DEANNA KASPER, SAM Unavailable PROBLEMS Condition Status Date Provider Notes Cardiology examination active Phong Knox MD PVD active Phong Konx MD Leg edema, bilateral active Phong Knox MD Smoker active Phong Knox MD hx of DVT active Phong Knox MD Peripheral neuropathy active Phong Ledezma ENCOUNTERS Date Type Provider Location Encounter Diag nosis - In-person encounter Office Visit Phong Knox MD [facility] - In-person encounter Office Visit Phong Knox MD [facility] Cardiology examinationPVDLeg edema, bilateralSmokerhx of DVTPeripheral [...] Covingtonneradhaelder oxygen saturation, oximetry 98 % Simi Graahmelder respiratory rate E&M 14 /min Simi steinernfelder [...] by mouth once a day Rosita Ventimiglia CLIP AND HANGER ATTACHER Ambien 10 mg tablet active 1 by mouth every night Rosita Ventimiglia CLIP AND HANGER ATTACHER triamterene-hyd rochlorothiazid 37.5-25 mg tablet active Rosita Ventimiglia CLIP AND HANGER ATTACHER Crestor 5 mg tablet active 1 tablet Rosita Ventimiglia CLIP AND HANGER ATTACHER lisinopril 10 mg tablet active 1 tablet by mouth Rosita Ventimiglia CLIP AND HANGER ATTACHER Trelegy Ellipta 100-62.5-25 mcg blister with device active Phong Knox MD gabapentin 300 mg capsule completed - 9 Rosita Ventimiglia [facility] carvedilol 25 mg tablet active 1 tablet by mouth twice a day Phong Knox MD alendronate 70 mg tablet active Take 1 tablet by mouth once a week Phong Knox MD SOCIAL HISTORY Date Observation Value Provider drug use no Rosita Ventimig dhiraj [facility] alcohol use no Rosita Ventimig dhiraj [facility] social history E&M S moking History: P [...] Policy type / Coverage type Suresh red green party ID DENY HMO Other [id number] ADVANCE DIRECTIVES Name Date DISCUSSED - NO DECISION MADE TREATMENT PLAN Date Name Performer [id number],S,cessation enc ouraged Rosita Escalante [facility] [id number],S,c hronic and unchanged. Managed by her primary team Rosita Escalante [facility] [id number],S,A BI showed severe disease of LLE and moderate of the RLE. patient however, is fairly asymptomatic and without issue at this time. Given that she will continue aspirin and statin. We will do f/u HEIDY yearly or sooner should symptoms occur. Rosita Escalante [facility] [id number],S, T he Patient was reencouraged to stop smoking. Phong Knox MD [id number],S, I recommended she stop her gabapentin since she says it doesn't help much and it could be contributing to her LE swelling. Phong Knox MD [id number],W, H er ABIs suggested severe RLE arterial disease, but she's capable of walking for a while and completing most activiites that she wants to do. We'll continue to monitor. She will need to be put on a statin. Phong Knox MD Cardiology:cessation encouraged Rosita Escalante [facility] Cardiology:chronic a nd unchanged. Managed by her primary team Rosita Escalante [facility] Cardiology:HEIDY showe d severe disease of LLE and moderate of the RLE. patient however, is fairly asymptomatic and without issue at this time. Given that she will continue aspirin and statin. We will do f/u HEIDY yearly or sooner should symptoms occur. Rosita Escalante [facility] Cardiology: T he Patient was reencouraged to [...]
[2024-06-27 13:33] LABS: Basophils Absolute Auto 0.1 K/mm3 (0.0-0.1); Basophils Percent Auto 0.6 % (0.2-1.2); Eosinophils Absolute Auto 0.2 K/mm3 (0-0.3); Eosinophils Percent Auto 1.7 % (0-4.4); Hematocrit 49.1 % (37.0-47.0); Hemoglobin 15.4 g/dL (12.0-15.0); Immature Granulocyte Absolute 0.03 K/mm3 (0.00-0.031); Immature Granulocyte Percent A 0.3 % (0-0.5); Lymphocytes Absolute Auto 2.26 K/mm3 (0.9-3.2); Lymphocytes Percent Auto 25.9 % (18.3-44.2); Mean Corpuscular HGB Conc 31.4 g/dl (32-36); Mean Corpuscular Hemoglobin 29.1 pg (26-34); Mean Corpuscular Volume 92.6 fl (80-100); Mean Platelet Volume 12.8 fl (7.4-10.4); Monocytes Percent Auto 11.4 % (2.6-8.5); Neutrophils Absolute Auto 5.2 K/mm3 (1.3-6.7); Neutrophils Percent Auto 60.1 % (45.5-73.1); Platelet Count Result 293 k/mm3 (150-375); Red Cell Distribution Width 16.4 % (11.5-14.5); White Blood Count 8.7 K/mm3 (4.5-10.0)
[2024-06-27 13:59] LABS: Alanine Aminotransferase 23 U/L (6-35); Albumin Level 3.8 g/dL (3.5-5.1); Alkaline Phosphatase 71 U/L (38-126); Anion Gap 7 mmol/L (4-12); Aspartate Amino Transferase 58 U/L (14-36); Bilirubin,Total 0.5 mg/dL (0.2-1.3); Blood Urea Nitrogen 17 mg/dL (7-17); Calcium 9.5 mg/dL (8.4-10.2); Carbon Dioxide 33 mmol/L (22-30); Chloride 95 mmol/L (98-107); Estimated Glomerular Filt Rate > 60; Glucose 99 mg/dL (65-110); Potassium 3.8 mmol/L (3.4-5.0); Sodium 135 mmol/L (137-145)
== END 2024-06-27 08:56 | disposition home or self-care (01) ==
PROVIDERS: PCP Family Medicine; Visit Provider Family Medicine
DX: N39.3 Stress incontinence (female) (male) (principal); Z79.1 Long term (current) use of non-steroidal anti-inflammatories (NSAID)
CPT/HCPCS: 36415; 80053; 85025

== ENCOUNTER 2024-08-26 14:12 | Emergency (ER) | payer OTHER, SELFPAY ==
--- NOTE | 2024-08-26 14:21 | ED.GENADULT ---
HPI - General Adult General Chief complaint: Wound/Laceration Stated complaint: RT Cut On foot Time Seen by Provider: 08/26/24 14:21 Source: patient Mode of arrival: ambulatory Limitations: no limitations History of Present Illness HPI narrative: 84-year-old female patient presents to the [facility] with complaints of laceration to the right foot. Patient states that she tripped over a doorway and lacerated her heel on that [place]. Unknown of when her last tetanus shot was. Denies hitting her head at the time of fall. Related Data Home Medications ?Medication ?Instructions ?Recorded ?Confirmed ?Last Taken ?Type diphenhydramine 25 1 tablet PO HS PRN sleep 04/04/24 08/22/24 04/03/24 History mg-acetaminophen 500 mg tablet (Acetaminophen PM) alendronate 70 mg tablet 70 mg PO WEEKLY 05/05/24 08/22/24 Unknown History fluticasone fur. 200 mcg-umeclid 1 inh inhalation DAILY 05/19/24 08/22/24 Unknown History 62.5 mcg-vilant 25 mcg inhalat.powder (Trelegy Ellipta) Allergies Allergy/AdvReac Type Severity Reaction Status Date / Time lisinopril Allergy Severe Anaphylactic Verified 08/26/24 14:35 Shock ranitidine Allergy Intermediate RASH/ITCHIN Verified 08/26/24 14:35 G Penicillins Allergy Mild hives Verified 08/26/24 14:35 simvastatin Allergy Unknown myopathy Verified 08/26/24 14:35 amlodipine Allergy Swelling Verified 08/26/24 14:35 codeine Allergy Swelling Verified 08/26/24 14:35 of Lip/Tongue/Throat guaifenesin Allergy Swelling Verified 08/26/24 14:35 levofloxacin Allergy Swelling Verified 08/26/24 14:35 Review of Systems Review of Systems: CONSTITUTIONAL: Denies fever, chills, or sweats. EYES: Denies visual changes, redness, or discharge. ENT: Denies rhinorrhea, congestion, sore throat, or otalgia. CARDIOVASCULAR: Denies chest pain, palpitations, or edema. RESPIRATORY: Denies cough or dyspnea. GASTROINTESTINAL: Denies abdominal pain, nausea, vomiting, or diarrhea. GENITOURINARY: Denies dysuria or hematuria. SKIN: Denies rash or itching. Positive laceration to right foot MUSCULOSKELETAL: Denies back pain, joint pain, or myalgia. NEUROLOGIC: Denies headache, numbness, or weakness. PSYCHIATRIC: Denies anxiety or depression. [facility] Past Medical History Medical History Chronic insomnia Generalized weakness Liver disease Prediabetes Essential hypertension Chronic obstructive pulmonary disease Cardiac murmur Angioedema Tobacco abuse Polycythemia Atherosclerosis of aorta Unspecified osteoarthritis, unspecified site Peripheral vascular disease Nicotine dependence, cigarettes, uncomplicated Insomnia, unspecified Gastro-esophageal reflux disease without esophagitis Major depressive disorder, recurrent, moderate Mixed hyperlipidemia Osteopenia after menopause Seborrheic keratosis, inflamed Stress incontinence in female Family History Family History Mother Hypertension Heart failure Sibling Patient's sister is in good health Father Carcinoma of colon Heart failure Social History Social History Social History: Surrogate medical decision maker: Mayuri Arredondo, daughter. Code status: Full code. Years smoked: 60 Smoking status: Light tobacco smoker Second hand tobacco smoke exposure: Yes Additional smoking assessment comments: pt states she is a social smoker Alcohol intake: current Alcohol use details: occasional alcohol use in moderation Substance use: never Substance use type: does not use Do You Feel Safe in your Home?: Yes Lack of Transportation: No Lack of Food: Never True Current Housing: I Have Housing Concerned About Future Housing: No Difficulty Paying Gas/Electric Bills: No Difficulty Paying for Meds: No Currently Unemployed: YES Education: Don't Know Difficulty w/ Childcare or Family Care: No Living arrangements: with family Additional living arrangements comments: . Lives in [place]. Occupation/Education: retired Spiritual care concerns: No Comments At the time of my signature I agree with nursing past medical history, surgical, social, and family history. There is no relevant family history pertinent to the presenting complaint. Exam Narrative: GENERAL: Well-appearing, well-nourished, and in no acute distress. HEAD: Normocephalic, atraumatic. EYES: PERRLA and EOMI. ENT: Nares clear, no rhinorrhea or epistaxis. Mucous membranes moist. NECK: Supple. No lymphadenopathy CHEST: Clear to auscultation. No respiratory distress. HEART: Regular rate and rhythm. No murmur heard. Normal peripheral pulses. ABDOMEN: Soft, nontender, nondistended, normal active bowel sounds. EXTREMITIES: Normal range of motion. No edema. SKIN: Warm, dry, no rash. patient has approximately 7.5 cm horseshoe-shaped laceration noted along the posterior ankle of the right foot. It is gaping open and fat is exposed. There is active bleeding noted. NEURO: No focal deficits. Alert and oriented x3. Course Course Level of Care: Express Care Visit Vital Signs Vital signs: Vital Signs Temperature 36.3 C L 08/26/24 14:26 Pulse Rate 74 08/26/24 14:26 Respiratory Rate 16 08/26/24 14:26 Pulse Oximetry 94 08/26/24 14:26 Temperature 36.3 C L 08/26/24 14:26 Pulse Rate 74 08/26/24 14:26 Respiratory Rate 16 08/26/24 14:26 Pulse Oximetry 94 08/26/24 14:26 Vital signs reviewed. Procedures Laceration Laceration 1: Date: 08/26/24 Time: 15:15 Site: lower extremity ( Right foot) Side (If applicable): right Size (cm): 7.5 Description: irregular Depth: simple, single layer Local Anesthetic: lidocaine 1% Amount of anesthesia used (mL): 10 Pre-repair: wound explored, irrigated and irrigated extensively ====== Skin Level ====== Skin layer closed with: nylon Size (cm): 3-0 Number of sutures: 11 Technique: simple, interrupted ====== Subcutaneous Layer ====== ====== Muscle Layer ====== ====== Tendon Layer ====== Dressing: The Procedure was explained and verbal consent was obtained. The wound was anesthetized with 10 ml of 1% lidocaine with good anesthesia with local infiltration. Sterile drape and prep were done. Copious irrigation was done with saline and Shur-Clens and the wound was explored. There was no foreign body or deep structure injury noted. Patient had good range of motion under anesthesia. Wound edges were approximated with good alignment using sutures. There were 11 sutures placed with 3-0. antibiotic ointment applied to wound with and nonadherent dressing over it with 4 x 4's and wrapped with gauze. The patient tolerated the procedure well without adverse effects. Medical Decision Making MDM Narrative Medical decision making narrative: patient's foot was repaired with sutures. Antibiotic ointment was applied and bandage was applied. Patient was fitted for a postop shoe. Advised to follow up with doctor as needed. Patient is return to urgent care for suture removal in about 10 days. Differential Diagnosis Differential Diagnosis: Differential diagnosis: Abscess, cellulitis, hidradenitis, laceration, puncture wound. Vital Signs Vital Signs: Vital Signs Temperature 36.3 C L 08/26/24 14:26 Pulse Rate 74 08/26/24 14:26 Respiratory Rate 16 08/26/24 14:26 Pulse Oximetry 94 08/26/24 14: Temperature 36.3 C L 08/26/24 14: Pulse Rate 74 08/26/24 14: Respiratory Rate 16 08/26/24 14: Pulse Oximetry 94 08/26/24 14:26 Critical Care Time Critical Care Time Critical Care Time: No Discharge Plan Discharge Clinical Impression: Laceration of heel Qualifiers: Encounter type: initial encounter Laterality: right Qualified Code(s): S91.311A - Laceration without foreign body, right foot, initial encounter Patient Disposition: Home Condition: Stable Instructions: Antibiotic Form, Care For Your Stitches (ED), Laceration (ED) Additional Instructions: -Keep the dressing clean and dry; then you may gently clean with soap and water whenever you take a shower; however no continuous water contact like dishes or swimming. Getting them too wet can slow down healing and raise your chance of getting an infection. After you wash your stitches, pat them dry and put an antibiotic ointment on them. -watch for signs of infection including: redness or swelling around the cut, or pus drains from the cut. It is normal for clear yellow fluid to drain from the cut in the first few days. -follow up with PCP for suture/staple in removal 7-10 days Patient Language: Chinese Prescriptions: New clindamycin HCl [Cleocin HCl] 300 mg capsule 300 mg PO TID 7 Days Qty: 21 0RF clindamycin HCl [Cleocin HCl] 150 mg capsule 150 mg PO TID 7 Days Qty: 21 0RF No Action aspirin [Berto Low Dose Aspirin] 81 mg tablet,delayed release (DR/EC) 81 mg PO DAILY Qty: 100 3RF alendronate 70 mg tablet 70 mg PO WEEKLY paroxetine HCl 20 mg tablet 20 mg PO DAILY Qty: 90 1RF furosemide 20 mg tablet 20 mg PO DAILY PRN (Reason: edema) Qty: 180 0RF Trelegy Ellipta 200-62.5-25 mcg blister with device 1 inh inhalation DAILY Patient Comments: sample provided in office diphenhydramine-acetaminophen [Acetaminophen PM] 25-500 mg tablet 1 tablet PO HS PRN (Reason: sleep) carvedilol 25 mg tablet 12.5 mg PO Q12H Qty: 200 3RF Rx Instructions: must administer with a meal/food zolpidem 10 mg tablet 10 mg PO QHS Qty: 30 1RF telmisartan 80 mg tablet 80 mg PO DAILY Qty: 90 1RF hydralazine 50 mg tablet 50 mg PO BID Qty: 180 0RF hydrochlorothiazide 12.5 mg tablet 12.5 mg PO DAILY Qty: 30 2RF Follow-up/Referrals: Shefali Gonzalez PA-C [Primary Care Provider] - Time of Disposition: 15:31
[2024-08-26 14:26] VITALS: PULSE 74; RESP 16; TEMP 36.3; O2SAT 94
[2024-08-26] MEDS: TETANUS,DIPHTHERIA,AC PERTUSSIS ADULT (0.5 ML) BOOSTRIX IM (14:48)
== END 2024-08-26 15:42 | disposition home or self-care (01) ==
PROVIDERS: Emergency Provider Nurse Practitioner Family; PCP Physician Assistant
DX: S91.311A Laceration without foreign body, right foot, initial encounter (principal); E78.2 Mixed hyperlipidemia; I10 Essential (primary) hypertension; J44.9 Chronic obstructive pulmonary disease, unspecified; F17.210 Nicotine dependence, cigarettes, uncomplicated; Z23 Encounter for immunization; W01.0XXA Fall on same level from slipping, tripping and stumbling without subsequent striking against object, initial encounter
CPT/HCPCS: 12002; 90471; 90715; 99213; A9270; G0463; J2003

== ENCOUNTER 2024-09-04 08:11 | Emergency (ER) | payer OTHER, SELFPAY ==
[2024-09-04 08:17] VITALS: BP 180/87; PULSE 63; RESP 16; TEMP 36.4; O2SAT 95
--- NOTE | 2024-09-04 08:23 | ED_ITS ---
HPI - Wound/Laceration General Chief Complaint: Recheck/Abnormal Lab/Rx Stated Complaint: Stitches Time Seen by Provider: 09/04/24 08:23 Source: patient and RN notes reviewed Mode of arrival: ambulatory Limitations: no limitations History of Present Illness HPI narrative: 84-year-old female presents Express Care for suture removal. Patient has had sutures in for 10 days. Patient denies any concern for infection. Past finished a course of clindamycin. Patient's tetanus was updated last visit. Related Data Home Medications Medication Instructions Recorded Confirmed Last Taken Type diphenhydramine 25 1 tablet PO HS PRN sleep 04/04/24 08/22/24 04/03/24 History mg-acetaminophen 500 mg tablet (Acetaminophen PM) alendronate 70 mg tablet 70 mg PO WEEKLY 05/05/24 08/22/24 Unknown History fluticasone fur. 200 mcg-umeclid 1 inh inhalation DAILY 05/19/24 08/22/24 Unknown History 62.5 mcg-vilant 25 mcg inhalat.powder (Trelegy Ellipta) Allergies Allergy/AdvReac Type Severity Reaction Status Date / Time lisinopril Allergy Severe Anaphylactic Verified 09/04/24 08:25 Shock ranitidine Allergy Intermediate RASH/ITCHIN Verified 09/04/24 08:25 G Penicillins Allergy Mild hives Verified 09/04/24 08:25 simvastatin Allergy Unknown myopathy Verified 09/04/24 08:25 amlodipine Allergy Swelling Verified 09/04/24 08:25 codeine Allergy Swelling Verified 09/04/24 08:25 of Lip/Tongue/Throat guaifenesin Allergy Swelling Verified 09/04/24 08:25 levofloxacin Allergy Swelling Verified 09/04/24 08:25 Review of Systems Review of Systems: CONSTITUTIONAL: Denies fever, chills, or sweats. EYES: Denies visual changes, redness, or discharge. ENT: Denies rhinorrhea, congestion, sore throat, or otalgia. CARDIOVASCULAR: Denies chest pain, palpitations, or edema. RESPIRATORY: Denies cough or dyspnea. GASTROINTESTINAL: Denies abdominal pain, nausea, vomiting, or diarrhea. GENITOURINARY: Denies dysuria or hematuria. SKIN: Denies rash or itching. Positive for laceration MUSCULOSKELETAL: Denies back pain, joint pain, or myalgia. NEUROLOGIC: Denies headache, numbness, or weakness. PSYCHIATRIC: Denies anxiety or depression. All other systems reviewed are negative, except as documented in HPI. [facility]LY [facility], [facility] Past Medical History Medical History Chronic insomnia Generalized weakness Liver disease Prediabetes Essential hypertension Chronic obstructive pulmonary disease Cardiac murmur Angioedema Tobacco abuse Polycythemia Atherosclerosis of aorta Unspecified osteoarthritis, unspecified site Peripheral vascular disease Nicotine dependence, cigarettes, uncomplicated Insomnia, unspecified Gastro-esophageal reflux disease without esophagitis Major depressive disorder, recurrent, moderate Mixed hyperlipidemia Osteopenia after menopause Seborrheic keratosis, inflamed Stress incontinence in female Family History Family History Mother Hypertension Heart failure Sibling Patient's sister is in good health Father Carcinoma of colon Heart failure Social History Social History Social History: Surrogate medical decision maker: Mayuri Arredondo, daughter. Code status: Full code. Years smoked: 60 Smoking status: Light tobacco smoker Second hand tobacco smoke exposure: Yes Additional smoking assessment comments: pt states she is a social smoker Alcohol intake: current Alcohol use details: occasional alcohol use in moderation Substance use: never Substance use type: does not use Do You Feel Safe in your Home?: Yes Lack of Transportation: No Lack of Food: Never True Current Housing: I Have Housing Concerned About Future Housing: No Difficulty Paying Gas/Electric Bills: No Difficulty Paying for Meds: No Currently Unemployed: YES Education: Don't Know Difficulty w/ Childcare or Family Care: No Living arrangements: with family Additional living arrangements comments: . Lives in [place]. Occupation/Education: retired Spiritual care concerns: No Comments At the time of my signature, I reviewed and agree with the nursing past medical, surgical, social, and family history. There is no relevant family history pertinent to the patient complaint. Exam Narrative: GENERAL: This is a well-nourished, well-developed adult, in no apparent distress. They are non ill-appearing, nontoxic appearing. HEAD: normocephalic, atraumatic. EYES: Sclera clear/white. Conjunctiva normal. Vision is grossly intact. Extraocular movements intact EARS: External ears normal,Hearing grossly intact. NOSE: External nose normal THROAT: Mucous membranes moist NECK: Neck supple CARDIOVASCULAR: Regular rate and rhythm RESPIRATORY: Respiratory rate normal, respiratory effort nonlabored, no respiratory distress SKIN: Right heel: Horseshoe shaped laceration with sutures in place. No purulent discharge. Surrounding erythema with mild tenderness to palpation. No induration area of fluctuance. NEURO: awake, alert, and oriented to person, place and time. There were no obvious focal neurologic abnormalities. EXTREMITIES: No joint tenderness, effusion, or edema noted. BACK: Nontender without deformity. No CVA tenderness. Course Course Emergency Course: Portions of this record may have been created with voice recognition software Level of Care: Express Care Visit Vital Signs Vital signs: Vital Signs Temperature 97.6 F 09/04/24 08:17 Pulse Rate 63 09/04/24 08:17 Respiratory Rate 16 09/04/24 08:17 Blood Pressure 180/87 H 09/04/24 08:17 Pulse Oximetry 95 09/04/24 08:17 Oxygen Delivery Room Air 09/04/24 08:17 Temperature 97.6 F 09/04/24 08:17 Pulse Rate 63 09/04/24 08:17 Respiratory Rate 16 09/04/24 08:17 Blood Pressure 180/87 H 09/04/24 08:17 Pulse Oximetry 95 09/04/24 08:17 Oxygen Delivery Room Air 09/04/24 08:17 Reviewed MDM - Wound/Laceration MDM Narrative Medical decision making narrative: Eleven sutures removed. Laceration is approximated well. Subcutaneous tissues is closed. Steri-Strips applied to help with epidermal closure in a focal area of the laceration. Given the surrounding erythema will go ahead injury with doxycycline for infection prevention. Patient just finished a course of clindamycin. Patient has a penicillin allergy in and is unsure if she has ever had a cephalosporin. Discussed physical exam findings. Advised supportive measures and signs/symptoms to go to the ER. Pt is appropriate for outpt treatment and f/u. Differential Diagnosis Differential diagnosis: Likely laceration and other (Cellulitis site, suture removal) Critical Care Time Critical Care Time Critical Care Time: No Discharge Plan Discharge Clinical Impression: Encounter for removal of sutures Patient Disposition: Home Condition: Stable Instructions: Antibiotic Form, Acute Wounds (ED) Additional Instructions: Continue to wash the wound daily with mild soap and water. Do not soak or scrub the wound. Steri-Strips were used to follow-up within 3 days. You may remove them after 5 days of they have fallen off. Your sutures were removed. Please keep the wound covered change the dressing at least daily or if it is saturated. Avoid dirty water until the wound has completely healed. Take antibiotics as directed. Please wear sunscreen while your outside while taking doxycycline. Follow-up with PCP in 3-5 days. If your symptoms worsen, he developed worsening redness or swelling, green or thick discharge, or fevers please go to the ER immediately. Patient Language: Ukrainian Prescriptions: New doxycycline monohydrate 100 mg capsule 100 mg PO BID 7 Days Qty: 14 0RF No Action clindamycin HCl [Cleocin HCl] 300 mg capsule 300 mg PO TID 7 Days Qty: 21 0RF clindamycin HCl [Cleocin HCl] 150 mg capsule 150 mg PO TID 7 Days Qty: 21 0RF aspirin [Berto Low Dose Aspirin] 81 mg tablet,delayed release (DR/EC) 81 mg PO DAILY Qty: 100 3RF alendronate 70 mg tablet 70 mg PO WEEKLY paroxetine HCl 20 mg tablet 20 mg PO DAILY Qty: 90 1RF furosemide 20 mg tablet 20 mg PO DAILY PRN (Reason: edema) Qty: 180 0RF Trelegy Ellipta 200-62.5-25 mcg blister with device 1 inh inhalation DAILY Patient Comments: sample provided in office diphenhydramine-acetaminophen [Acetaminophen PM] 25-500 mg tablet 1 tablet PO HS PRN (Reason: sleep) carvedilol 25 mg tablet 12.5 mg PO Q12H Qty: 200 3RF Rx Instructions: must administer with a meal/food zolpidem 10 mg tablet 10 mg PO QHS Qty: 30 1RF telmisartan 80 mg tablet 80 mg PO DAILY Qty: 90 1RF hydralazine 50 mg tablet 50 mg PO BID Qty: 180 0RF hydrochlorothiazide 12.5 mg tablet 12.5 mg PO DAILY Qty: 30 2RF Follow-up/Referrals: Rhett Schmid MD [Primary Care Provider] - Time of Disposition: 08:47
== END 2024-09-04 08:50 | disposition home or self-care (01) ==
PROVIDERS: PCP Family Medicine
DX: S91.311D Laceration without foreign body, right foot, subsequent encounter (principal); X58.XXXD Exposure to other specified factors, subsequent encounter; I10 Essential (primary) hypertension; J44.9 Chronic obstructive pulmonary disease, unspecified; R01.1 Cardiac murmur, unspecified; I70.0 Atherosclerosis of aorta; I73.9 Peripheral vascular disease, unspecified; K21.9 Gastro-esophageal reflux disease without esophagitis; E78.2 Mixed hyperlipidemia; M85.80 Other specified disorders of bone density and structure, unspecified site; R73.03 Prediabetes
CPT/HCPCS: 99213; G0463

== ENCOUNTER 2025-02-15 08:06 | Outpatient (CLI) | payer OTHER, SELFPAY ==
--- OUTSIDE RECORDS SUMMARY | 2025-02-15 08:11 | XMS_ITS | Clinical Summary ---
Author Organization [facility] Address [address] [place] [address] Phone Care Team Providers Care Photo Equipment Technician Name Role Phone Bernie Brannon MD Primary Care Provider [phone] Allergies Active Allergy Reactions Criticality Noted Date [...] bedtime. 30 Tablet 3 03/13/2022 8:17 AM SYSTEMS SECURITY ANALYST 2 Active rosuvastatin (CRESTOR) 5 mg tablet Take 1 Tablet (5 mg) by mouth daily. 30 Tablet 2 03/13/2022 8:17 AM SYSTEMS SECURITY ANALYST 2 Active aspirin (ECOTRIN EC) 81 mg [...] Encounters Date Type Department Care Team Description 01/23/2025 External Device Data [facility] Provider, Abstract 01/23/2025 External Device Data [facility] Provider, Abstract 12/06/2024 External Device Data [facility] Provider, Abstract 11/28/2024 External Device Data [facility] Provider, Abstract from Last 3 Months Immunizations Immunization Administration Dates Next Due (COMRINATY)(12YR UP) COVID-1 9 VACCINE, MRNA (PF)30 MCG/0.3 ML, IM SYRINGE 02/08/2025,04/20/2024 INFLUENZA VACCINE HIGH DOSE QUADRIVALENT 65 YR UP PF IM 02/23/2023,01/31/2022 INFLUENZA VACCINE HIGH DOSE TRIVALENT SPLIT VIRUS, (65 YR UP), 0.5ML (PF), IM 02/08/2025,04/20/2024 Family History Medical History Relation Name Comments [...] No 03/25/2024 Food Insecurity Answer Date Recorded Patient needs follow up regardin 08/15/2024 Transportation Needs Answer Date Record ed Patient needs follow up regardin 08/15/2024 Housing Stability Answer Date Recorded Social/Environmental Concerns No concerns Utility Needs Answer Date Recorded Patient needs follow up regardin 08/15/2024 Comments Unknown Sex and Gender Information Value Date Recorded Sex Assigned at Not on file Legal Sex Female 3:27 PM CDT Gender Identity Not on file Sexual Orientation Not on file Last Filed Vital Signs Vital Sign Reading Time Taken Comments Blood Pressure 138/52 03/26/2024 12:00 PM SYSTEMS SECURITY ANALYST Pulse 61 03/26/2024 12:00 PM SYSTEMS SECURITY ANALYST Temperature 36.7 C (98 F) 03/26/2024 12:00 PM SYSTEMS SECURITY ANALYST Respiratory Rate 18 03/26/2024 12:00 PM SYSTEMS SECURITY ANALYST Oxygen Saturation 92% 03/26/2024 12:00 PM SYSTEMS SECURITY ANALYST Inhaled Oxygen Concentration - - Weight 89.8 kg (198 lb) 03/25/2024 9:21 PM SYSTEMS SECURITY ANALYST Height 162.6 cm (5' 4) 03/25/2024 9:21 PM SYSTEMS SECURITY ANALYST Body Mass Index 33.99 03/25/2024 9:21 PM SYSTEMS SECURITY ANALYST Plan of Treatment Health Maintenance Due Date Last Done Comments DTAP/TDAP/TD VACCINES (1 - Tdap) 1959 PNEUMOCOCCAL VACCINE 50+ YEA RS (1 of 2 - PCV) 1958 ZOSTER VACCINE (1 of 2) 1989 OSTEOPOROSIS SCREENING 01/05/2004 RSV VACCINE (60+ or ) (1 - 1-dose 75+ series) 2014 COVID-19 Vaccine Completed 02/08/2025, 04/20/2024 INFLUENZA VACCINE Completed 02/08/2025, , 02/23/2023, Additional history exists Insurance RX [employer] (INTERNAL) [facility] [employer] Medicare Part D [facility] Advance Directives For more information, please contact: [phone] * Full Code (Latest Code Status on File) Date Activated Date Inactivated Comments 03/25/2024 9:25 PM 03/26/2024 5:25 PM Care Teams Photo Equipment Technician Relationship Specialty Start Date End Date Bernie Brannon MD [address] [place] [address] PCP - General Family Practice 03/25/24
--- OUTSIDE RECORDS SUMMARY | 2025-02-15 08:11 | XMS_ITS | Clinical Summary ---
Author Organization [facility] Address [address] [place] [address] Care Team Providers Care Roll Forming Machine Operator Name Role Phone Bernie Brannon MD Primary Care Provider Allergies Active Allergy Reactions Criticality Noted Date Comments Penicillins Hives,Unknown Medium 09/07/2021 Medications carvedilol (COREG) 25 mg tablet 9 Active TRIAMTERENE-HYD ROCHLOROTHIAZID E 37.5-25 mg per tablet 9 Active zolpidem (AMBIEN) 10 mg tablet 9 Active Lactobac no.41/Bifidobac t no.7 (PROBIOTIC-10 ORAL) Take by mouth Active multivit-minera [id number] tablet Take by mouth Active aspirin 81 [...] Problem Noted Date Diagnosed Date 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, bilateral legs 09/08/2022 Atherosclerosis of ute artery of left lower e xtremity 07/22/2018 [...] on file Legal Sex Female 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
[2025-02-15 19:04] LABS: Hematocrit 49.3 % (37.0-47.0); Hemoglobin 15.7 g/dL (12.0-15.0); Immature Granulocyte Percent A 0.4 % (0-0.5); Lymphocytes Absolute Auto 2.26 K/mm3 (0.9-3.2); Mean Corpuscular HGB Conc 31.8 g/dl (32-36); Mean Corpuscular Hemoglobin 29.6 pg (26-34); Mean Corpuscular Volume 93.0 fl (80-100); Nucleated Red Blood Cells Absolute Auto 0.000 K/mm3 (0.0-0.012); Nucleated Red Blood Cells Perc 0.0 % (0.0-0.2); Platelet Count Result 274 k/mm3 (150-375); Red Blood Count 5.30 M/mm3 (4.2-5.4); White Blood Count 10.8 K/mm3 (4.5-10.0)
[2025-02-15 19:10] LABS: Alanine Aminotransferase 22 U/L (6-35); Albumin Level 3.4 g/dL (3.5-5.1); Alkaline Phosphatase 65 U/L (38-126); Anion Gap 4 mmol/L (4-12); Aspartate Amino Transferase 50 U/L (14-36); Bilirubin,Total 0.5 mg/dL (0.2-1.3); Blood Urea Nitrogen 15 mg/dL (7-17); Calcium 8.8 mg/dL (8.4-10.2); Carbon Dioxide 36 mmol/L (22-30); Chloride 96 mmol/L (98-107); Cholesterol 300 mg/dL (0-200); Estimated Glomerular Filt Rate > 60; Glucose 82 mg/dL (65-110); HDL Direct 49 mg/dL; Potassium 4.0 mmol/L (3.4-5.0); Sodium 136 mmol/L (137-145); Total Protein 6.8 g/dL (6.3-8.2); Triglycerides 150 mg/dL (<150)
== END 2025-02-15 08:07 | disposition home or self-care (01) ==
PROVIDERS: PCP Family Medicine; Visit Provider Physician Assistant
DX: I10 Essential (primary) hypertension (principal); E78.2 Mixed hyperlipidemia; I70.0 Atherosclerosis of aorta
CPT/HCPCS: 36415; 80053; 80061; 85025